=== PATIENT | female | born 1945 | race Caucasian/White ===

== ENCOUNTER 2019-05-26 12:00 | Outpatient (RCR) | payer MEDICARE, OTHER, SELFPAY | END 2019-06-01 23:59 | disposition home or self-care (01) | LOC: CHSSENLIFE 12:00 | PROVIDERS: PCP Family Medicine; Visit Provider Psychiatry & Neurology Psychiatry | DX: F41.9 Anxiety disorder, unspecified (principal); F33.1 Major depressive disorder, recurrent, moderate; F60.9 Personality disorder, unspecified | CPT/HCPCS: 90792; 90853; 99213; 99214; G0463 ==

== ENCOUNTER 2019-06-01 11:02 | Outpatient (RCR) | payer MEDICARE, OTHER, SELFPAY | END 2019-06-16 15:29 | disposition home or self-care (01) | LOC: CHSSENLIFE 11:02 | PROVIDERS: PCP Internal Medicine; Visit Provider Psychiatry & Neurology Psychiatry | DX: F41.9 Anxiety disorder, unspecified (principal); F33.1 Major depressive disorder, recurrent, moderate; F60.9 Personality disorder, unspecified | CPT/HCPCS: 90853; 99213; G0463 ==

== ENCOUNTER 2020-06-20 07:12 | Outpatient (CLI) | payer MEDICARE, OTHER, SELFPAY ==
--- NOTE | ~2020-06-20 | XR_ITS ---
EXAMINATION: XR chest 2V DATE: 06/20/2020 07:39 INDICATION: Cough. TECHNIQUE: Frontal and lateral views of the chest were obtained. COMPARISON: Chest 2 views 10/19/2017 FINDINGS: There is mild atelectasis at left lung base. No pleural effusion or pneumothorax. The heart size is normal. There are surgical clips in the abdomen. IMPRESSION: 1. Mild atelectasis at left lung base. Reviewed, dictated and finalized at location A. E OPERATOR
== END 2020-06-20 07:13 | disposition home or self-care (01) ==
LOC: CHSIMG 07:16
PROVIDERS: PCP Family Medicine; Visit Provider Family Medicine
DX: R05 Cough (principal)
CPT/HCPCS: 71046

== ENCOUNTER 2020-08-23 16:07 | Outpatient (CLI) | payer MEDICARE, OTHER, SELFPAY ==
--- NOTE | ~2020-08-23 | XR_ITS ---
EXAMINATION: XR chest 2V DATE: 08/23/2020 17:07 INDICATION: Acute bronchitis. Shortness of breath. TECHNIQUE: Frontal and lateral views of the chest were obtained. COMPARISON: Chest 2 views 06/20/2020 FINDINGS: There is mild atelectasis in left lower lung zone. No pleural effusion or pneumothorax. The heart size is normal. IMPRESSION: 1. Mild atelectasis in left lower lung zone. Reviewed, dictated and finalized at location A.
== END 2020-08-23 16:08 | disposition home or self-care (01) ==
LOC: CHSIMG 16:08
PROVIDERS: PCP Family Medicine; Visit Provider Physician Assistant
DX: J44.0 Chronic obstructive pulmonary disease with (acute) lower respiratory infection (principal); J20.9 Acute bronchitis, unspecified; J98.11 Atelectasis
CPT/HCPCS: 71046

== ENCOUNTER 2020-09-24 08:32 | Outpatient (CLI) | payer MEDICARE, OTHER, SELFPAY ==
--- NOTE | ~2020-09-24 | XR_ITS ---
EXAMINATION: XR chest 2V 09/24/2020 08:59 INDICATION: Acute bronchitis. Emphysema. PROCEDURE: PA and lateral views of the chest COMPARISON: Comparison to multiple prior studies sequentially, with oldest reviewed study dated 06/2017. FINDINGS: The lungs are clear. The lungs are hyperinflated which is consistent with, but not diagnost ic of chronic obstructive pulmonary disease. The cardiomediastinal silhouette is within normal limits . There are no pleural effusions. There is no pneumothorax suspected. IMPRESSION: 1: NO ACUTE CARDIOPULMONARY DISEASE. Reviewed, dictated and finalized at location B.
== END 2020-09-24 08:33 | disposition home or self-care (01) ==
LOC: CHSLAB 08:34
PROVIDERS: PCP Family Medicine; Visit Provider Physician Assistant
DX: J44.0 Chronic obstructive pulmonary disease with (acute) lower respiratory infection (principal)
CPT/HCPCS: 71046

== ENCOUNTER 2020-09-28 14:56 | Emergency (ER) | payer MEDICARE, OTHER, SELFPAY ==
--- NOTE | ~2020-09-28 | XR_ITS ---
EXAMINATION: XR abdomen NG/feed tube insert DATE: 09/28/2020 20:36 INDICATION: Nasogastric tube placement. TECHNIQUE: A supine view of the abdomen and lower chest was obtained for evaluation of feeding tube placement. COMPARISON: CT dated 09/28/2020 FINDINGS: Nasogastric tube tip near the gastric pylorus, possibly in the proximal duodenum and with the proxima l side port at the gastric antrum. Mildly dilated gas-filled loops of bowel in the upper abdomen cons istent with small bowel obstruction. Postoperative changes in the upper abdomen with suture line meliton g the proximal stomach. Mild streaky atelectasis at the left lung base. Heart size is normal. IMPRESSION: 1. Distal tip of the nasogastric tube tip near the gastric pylorus, possibly in the proximal duodenum . Consider withdrawal by 10 cm. Reviewed, dictated and finalized at location A. IMPRESSION: 1. Distal tip of the nasogastric tube tip near the gastric pylorus, possibly in the proximal duodenum. Consider withdrawal by 10 cm.
--- NOTE | ~2020-09-28 | CT_ITS ---
EXAMINATION: CT abdomen pelvis w con DATE: 09/28/2020 17:17 INDICATION: Left abdominal pain. TECHNIQUE: Computed tomography (CT) of the abdomen and pelvis was performed with 100 mL Omnipaque 350 intravenous contrast. Automated exposure control and iterative reconstruction technique were employe d. The dose-length product was 735.01 mGy-cm. COMPARISON: pelvis CT 08/09/18 FINDINGS: The visualized portions of the lung bases demonstrate mild atelectasis. No pleural effusion . The heart size is normal. No pericardial effusion. There is a small sliding hiatal hernia. There ar e surgical changes in the stomach. There is mild intrahepatic and extrahepatic biliary duct dilatatio n, likely secondary to cholecystectomy. The spleen, pancreas, and adrenal glands are normal. There is a 2.8 cm hemorrhagic cyst of right kidney. There are cysts in the kidneys measuring up to 5 mm on th e left. There is diverticulosis of the colon without evidence of diverticulitis. There is a ventral h ernia containing a wall of nonobstructed transverse colon. The appendix is not visualized. There is a ventral hernia containing a dilated segment of small bowel with transitions points entering and exit ing the hernia. Small bowel is dilated proximal to the hernia and decompressed distal to the hernia. There is predominantly chronic fat stranding in the hernia and in the surrounding subcutaneous fat, c onsistent with inflammation and scarring. There are fibroids in the uterus. There are no pathological ly enlarged lymph nodes. There is no free intraperitoneal fluid. There is severe lumbar spondylosis. IMPRESSION: 1. Closed loop small bowel obstruction within a ventral hernia. 2. Ventral hernia containing a wall of nonobstructed transverse colon. Reviewed, dictated and finalized at location A.
[2020-09-28 15:06] VITALS: BP 161/93; PULSE 67; RESP 20; TEMP 36.1; O2SAT 96
--- NOTE | 2020-09-28 15:09 | ED.ABDPAIN ---
HPI - Abdominal Pain General Chief Complaint: Abdominal Pain Stated Complaint: AMB Time Seen by Provider: 09/28/20 15:05 Source: patient and EMS Mode of arrival: ambulatory Limitations: no limitations History of Present Illness HPI narrative: patient comes in with recurrent nausea and emesis. She has had moderately severe abdominal pain, for about 2 hours prior to presentation. This has been associated with nausea and emesis at home. She comes in because of abdominal pain which is ongoing, and because of nausea. MD elicited complaint: abdominal pain Pertinent past history: other (multiple abdominal surgeries) Onset (ago): hour(s) Pain Consistency: constant Location: epigastric Severity: severe Quality: cramping, stabbing and sharp Exacerbating factors: nothing Relieving factors: nothing Associated symptoms: nausea and vomiting Related Data Home Medications Medication Instructions Recorded Confirmed metformin 1,000 mg PO DAILY 03/15/19 09/28/20 metformin 500 mg PO DAILY 03/15/19 09/28/20 buspirone 7.5 mg PO BID 09/28/20 09/28/20 duloxetine 60 mg PO DAILY 09/28/20 09/28/20 lovastatin 20 mg PO DAILY 09/28/20 09/28/20 omeprazole 20 mg PO BID 09/28/20 09/28/20 sitagliptin 100 mg PO DAILY 09/28/20 09/28/20 Allergies Allergy/AdvReac Type Severity Reaction Status Date / Time No Known Allergies Allergy Unknown Verified 09/04/15 15:44 Review of Systems Constitutional: Constitutional: Reports no additional constitutional complaints Eyes: Eyes: Reports no additional eye complaints ENT: Reports system reviewed and no additional complaints, except as documented Cardiovascular: Cardiovascular: Reports no additional cardiovascular complaints Respiratory: Respiratory: Reports no additional respiratory complaints Gastrointestinal: Gastrointestinal: Reports no additional gastrointestinal complaints Genitourinary: Genitourinary: Reports no additional female genitourinary complaints Musculoskeletal: Musculoskeletal: Reports no additional musculoskeletal complaints Integumentary/Breasts: Skin/Breast: Reports system reviewed and no additional complaints, except as docu Neurologic: Reports system reviewed and no additional complaints, except as documented Psychiatric: Psychiatric: Reports no additional psychiatric complaints Endocrine: Endocrine: Reports no additional endocrine complaints Hematologic/Lymphatic: Hematologic/Lymphatic: Reports no additional hematologic/lymphatic complaints Allergic/Immunologic: Allergic/Immunologic: Reports no additional allergic/immunologic complaints [facility] Past Medical History Medical History (Updated 09/28/20 @ 18:38 by Umang Dyson MD) Body mass index [BMI] 35.0-35.9, adult (09/27/15) Complications of gastric bypass surgery Left knee pain Primary osteoarthritis of both knees Surgical History Surgical History (Updated 09/28/20 @ 15:52 by Umang Dyson MD) Gastric bypass status for obesity History of appendectomy History of cholecystectomy Hx of tonsillectomy Presence of right artificial knee joint Family History Family History Other Family history of arthritis Family history of malignant neoplasm Hypertension Social History Social History Smoking status: Never smoker Alcohol intake: never Exam Const: General: alert Orientation/consciousness: patient oriented x3 HENMT: Head: normal to inspection Ears: external ears normal and TM's normal bilaterally General nose exam: Normal external nose present Mouth: Yes Normal oral and palatal mucosa present Throat: posterior oropharynx normal Eyes: Conjunctivae: conjunctivae normal Neck: Neck: normal visual inspection Chest: Chest palpation & inspection: normal inspection of the chest Resp: Effort & Inspection: normal respiratory effort Auscultation: clear to auscultation bilaterally Cardio: Rate: regul
[2020-09-28] MEDS: DICYCLOMINE HCL INJ 20 MG/2 ML VIAL IM (15:16)
[2020-09-28] MEDS: ONDANSETRON INJ 4 MG/2 ML VIAL IV PUSH ×2 (15:16→18:44)
[2020-09-28 15:30] LABS: Basophils Absolute Auto 0.03 K/mm3 (0.00-0.10); Basophils Percent Auto 0.2 % (0.0-1.0); Eosinophils Absolute Auto 0.17 K/mm3 (0.02-0.50); Eosinophils Percent Auto 1.2 % (1.0-6.0); Hemoglobin 12.9 g/dL (11.7-13.8); Immature Granulocyte Absolute 0.09 K/mm3 (0.00-0.00); Immature Granulocyte Percent A 0.6 % (0.0-0.0); Lymphocytes Absolute Auto 2.46 K/mm3 (1.10-4.50); Lymphocytes Percent Auto 17.1 % (18.0-42.0); Mean Corpuscular HGB Conc 33.1 g/dL (32.0-36.0); Mean Corpuscular Volume 84.6 fL (78.0-102.0); Mean Platelet Volume 10.8 fl (9.2-11.8); Monocytes Absolute Auto 0.78 K/mm3 (0.10-0.90); Monocytes Percent Auto 5.4 % (2.0-11.0); Neutrophils Absolute Auto 10.9 K/mm3 (1.7-7.2); Neutrophils Percent Auto 75.5 % (50.0-70.0); Platelet Count Result 347 K/mm3 (150-420); Red Blood Count 4.61 M/mm3 (4.20-5.40); Red Cell Distribution Width 15.3 % (11.6-14.4); White Blood Count 14.4 K/mm3 (4.8-10.8)
--- NOTE | 2020-09-28 15:40 | PC.NURSE ---
this rn in to re-evaluate pt. pt sitting up on stretcher sticking finger down throat to make herself throw up. pt asked to please not do this. edp aware.
--- NOTE | 2020-09-28 15:41 | PC.NURSE ---
pt unable to provide urine sample at this time.
[2020-09-28 15:44] LABS: Alanine Aminotransferase 15 U/L (14-59); Alkaline Phosphatase 45 U/L (46-116); Anion Gap 15 mmol/L (8-16); Aspartate Amino Transferase 12 U/L (15-37); Bilirubin,Total 0.4 mg/dL (0.00-1.00); Blood Urea Nitrogen 14 mg/dL (7-18); Calcium 9.6 mg/dL (8.5-10.1); Carbon Dioxide 22 mmol/L (21-32); Chloride 98 mmol/L (98-108); Estimated CRCL calculation 43 ml/min; Estimated Glomerular Filt Rate 58; Glucose 212 mg/dL (70-99); Osmolality Calculated 286 mOsm/kg (285-295); Potassium 4.1 mmol/L (3.5-5.1); Sodium 135 mmol/L (136-145); Total Protein 7.2 g/dL (6.4-8.2)
[2020-09-28 15:45] LABS: Lipase 100 U/L (73-393)
[2020-09-28 15:47] LABS: Lactic Acid Reflex 1.1 mmol/L (0.4-2.0)
[2020-09-28] MEDS: HYDROmorphone HCL INJ (*CRX) 2 MG/ML VIAL 0.5 MG IV PUSH ×2 (16:00→18:44)
--- NOTE | 2020-09-28 16:25 | PC.NURSE ---
PT RESTING ON STRETCHER, PT CONTINUES TO C/O PAIN. PT SPO2 DECREASES TO 85% ON RA WHEN FALLING ASLEEP. PT PLACED ON 2 LITERS O2/NC.
[2020-09-28 16:32] VITALS: BP 168/83; PULSE 71; RESP 18; O2SAT 99
--- NOTE | 2020-09-28 17:03 | PC.NURSE ---
PT TO CT VIA WHEELCHAIR.
[2020-09-28 17:33] VITALS: PULSE 80; RESP 20; O2SAT 99
[2020-09-28 18:17] VITALS: BP 169/80; PULSE 78; RESP 18; O2SAT 96
--- NOTE | 2020-09-28 18:17 | PC.NURSE ---
Addendum entered by Meghan Monte RN 09/28/20 18:18[facility] per pt request. Original Note: alecia marroquin
--- NOTE | 2020-09-28 18:30 | PC.NURSE ---
PT AMBULATORY TO BATHROOM.
[2020-09-28 18:49] LABS: Acetone Small (Negative)
[2020-09-28 18:52] LABS: Appearance Urine Clear (Clear); Bilirubin Urine Negative (Negative); Glucose Urine UA Negative (Negative); Ketones Urine 1+ (Negative); Leukocyte Esterase Ur Trace LEU/UL (Negative); Nitrate Urine Negative (Negative); Protein Urine Negative (Negative); Specific Grav Ur 1.015 (1.010-1.020); Urobilinogen Urine 0.2 mg/dL (0.2-1.0)
--- NOTE | 2020-09-28 18:57 | PC.NURSE ---
PTS ROOMATE UPDATED PER PT REQUEST. PT ROOMATE SUSANNAH PHONE NUMBER [phone]
[2020-09-28 18:59] LABS: Add Urine Microscopic? YES; Blood Urine Trace-lysed (Negative); Color Urine Light Yellow (Yellow)
[2020-09-28 19:00] LABS: Bacteria Urine Trace /hpf; RBC Urine None seen /hpf (0-2); Squamous Epithelial Cell Urine Few /hpf (Few)
--- NOTE | 2020-09-28 19:02 | PC.NURSE ---
REPORT TO CARLA.
[2020-09-28] MEDS: metroNIDAZOLE 500 MG/ISO 100ML 500 MG/100 ML BAG 100 MG IVPB (19:18)
[2020-09-28] MEDS: SODIUM CHLORIDE 0.9% IV 1,000 ML 500 ML IV CONT (19:18)
[2020-09-28 19:46] VITALS: BP 183/81; PULSE 78; RESP 16; O2SAT 100
[2020-09-28] MEDS: SODIUM CHLORIDE 0.9% IV 1,000 ML 200 ML IV CONT (19:48)
--- NOTE | 2020-09-28 20:02 | PC.NURSE ---
Patient has been accepted to [facility], on-call surgeon requests NG tube placement. Attempted x 2 with ERP at bedside without success. Will attempt again if patient is willing. Arranging ambulance transport. Patient reports abdominal pain 5/10, she has had no active vomiting and denied current nausea.
[2020-09-28 20:27] VITALS: BP 156/74; PULSE 80; RESP 16; O2SAT 94
--- NOTE | 2020-09-28 20:34 | PC.NURSE ---
NG tube placed, KUB obtained. Jose Francisco called and report given to Suman MONZON, patient going to room 347. [facility] requested for transfer.
--- NOTE | 2020-09-28 21:20 | PC.NURSE ---
[facility] arrived to transport patient to [facility].
== END 2020-09-28 21:25 | disposition short-term general hospital (02) ==
PROVIDERS: Emergency Provider Emergency Medicine; PCP Family Medicine
DX: K56.699 Other intestinal obstruction unspecified as to partial versus complete obstruction (principal)
CPT/HCPCS: 36415; 74177; 80053; 81001; 82010; 83605; 83690; 85025; 87040; 96361; 96365; 96367; 96372; 96375; 96376; 99285; J0500; J1170; J2405; J2543; J7030; Q9967

== ENCOUNTER 2020-09-28 22:53 | Inpatient (IN) | payer MEDICARE, OTHER, SELFPAY ==
--- NOTE | ~2020-09-28 | XR_ITS ---
EXAMINATION: XR abdomen NG/feed tube rechec DATE: 09/28/2020 22:18 INDICATION: Confirmation of gastric position of the nasogastric tube. TECHNIQUE: A supine view of the abdomen and lower chest was obtained for evaluation of feeding tube placement. COMPARISON: 09/28/2020 FINDINGS: The distal tip of the nasogastric tube has advanced and is now within the second portion of the duode num with the proximal side port near the level of the pylorus. The prior some redundancy amount of tu be within the more proximal stomach has decreased which likely accounts for the advancement of this t ube. Postoperative changes with multiple surgical clips and sutures along the stomach. Persistent mil dly dilated loops of gas-filled small bowel in the abdomen consistent with small bowel obstruction. V isualized portions of the lungs are clear. Heart size is normal. IMPRESSION: 1. Nasogastric tube tip is advanced, now in the second portion of the duodenum. Could consider withdr awal by 10-[address] the distal tip in the distal gastric body or maintaining the proximal side- port below the level of the gastroesophageal junction. The line 2. Small bowel obstruction. Reviewed, dictated and finalized at location A. IMPRESSION: 1. Nasogastric tube tip is advanced, now in the second portion of the duodenum. Could consider withdrawal by 10-[address] the distal tip in the distal ga stric body or maintaining the proximal side-port below the level of the gastroe sophageal junction. The line 2. Small bowel obstruction.
--- NOTE | ~2020-09-28 | XR_ITS ---
EXAMINATION: XR abdomen obstructive series EXAM DATE: 09/29/2020 09:07 INDICATION: F/U on SBO (please compare to CT of 09/18). Epigastric pain. TECHNIQUE: Frontal upright projection of the upper abdomen, frontal projection of the lower abdomen f or interpretation. Comparison is made to prior examination from 09/28/2020. Correlation was made with CT scan 09/28/2020. FINDINGS: Gastroesophageal surgical clips, with feeding tube coursing along the gastric body, pylorus , duodenal, tip along the 3rd portion duodenum, could be safely retracted 10 cm. Again there are mult iple loops of significantly dilated air-filled mid small bowel proximal to the left obstructing lower quadrant small bowel hernia (incarcerated?). Lung bases are clear. No evidence of free intraperitone al gas. IMPRESSION: 1. Feeding tube tip and side-port in the 3rd and 1st portion of duodenum respectively, could be safe ly retracted 10 cm. 2. Persistent small bowel obstruction. 3. No free intraperitoneal air. Reviewed, dictated and finalized at location A. IMPRESSION: 1. Feeding tube tip and side-port in the 3rd and 1st portion of duodenum respe ctively, could be safely retracted 10 cm. 2. Persistent small bowel obstruction. 3. No free intraperitoneal air.
[2020-09-28] MEDS: SODIUM CHLORIDE 0.9% IV 1,000 ML 85 ML IV CONT (22:09)
--- NOTE | 2020-09-28 22:13 | ADMGEN ---
This patient, Gladis Nelson, was admitted to Medical Room 347-. Patient/family oriented to hospital policies and general routines including ID bracelet, bed and alarms, visiting hours, pain management, procedures, bathroom and other care routines, personal items, smoking policy, room service/diet, and visiting hours. Information on how to activate the Rapid Response Team has been discussed. Patient/Family are encouraged to report perceived risks to care and to ask questions if they do not understand what they are told or what they should do.
[2020-09-28 22:19] VITALS: BP 157/80; PULSE 74; RESP 18; TEMP 36.4; O2SAT 97; BMI 32.1
--- NOTE | 2020-09-28 23:26 | PM.IMHP ---
H&P: HPI History of Present Illness Date/Time: 09/28/20 23:26 Chief Complaint: Abdominal pain Narrative: This is a 74-year-old female with past medical history significant for type 2 diabetes mellitus, anxiety. Patient has been in her usual state of health up until yesterday at around 1:00 a.m. when she started having abdominal pain abdominal cramping some nausea but no vomiting patient has been unable to pass gas for several hours now. In the morning she was fine and she was able to eat her breakfast. She has not had any fevers rigors chills, no melena no hematemesis and no hematochezia. Abdominal pain is diffuse cramp like, she has not been able to eat anything. She comes as a direct admission from a [facility] emergency room. However general surgeon has been consulted patient arrived with NG in. At the time of my visit patient was experimented in excruciating pain in her abdomen. She denies any changes in her stool character or bowel habit recently. CT of abdomen and pelvis was significant for a closed loop of bowel within the hernia obstruction. Review of Systems Review of Systems: Narrative: Abdominal pain dry heaving unable to pass gas Constitutional: Constitutional: Denies chills, Denies fatigue, Denies fever(s), Denies malaise, Reports poor appetite and Denies weakness Eyes: Eyes: Denies change in vision ENT: Denies nasal congestion, Denies nasal discharge and Denies nasal obstruction Cardiovascular: Cardiovascular: Denies irregular heart rhythm, Denies radiating jaw, neck or arm pain, Denies palpitations and Denies dyspnea Respiratory: Respiratory: Denies cough, Denies dyspnea, Denies dyspnea on exertion and Denies wheezing Gastrointestinal: Gastrointestinal: Reports abdominal pain, Denies melena, Denies change in stool character, Denies diarrhea, Reports nausea and Denies vomiting Comments: Unable to pass gas Genitourinary: Genitourinary: Denies dysuria Musculoskeletal: Musculoskeletal: Denies arthralgias, Denies joint swelling, Denies muscle cramps and Denies muscle weakness Integumentary/Breasts: Skin/Breast: Denies rash Neurologic: Denies focal weakness and Denies Sensory deficit (Neuro) Psychiatric: Psychiatric: Reports no additional psychiatric complaints Endocrine: Endocrine: Reports no additional endocrine complaints Hematologic/Lymphatic: Hematologic/Lymphatic: Reports no additional hematologic/lymphatic complaints Allergic/Immunologic: Allergic/Immunologic: Reports no additional allergic/immunologic complaints COUNTS INCLUDE 234 BEDS AT THE [facility] Past Medical History Medical History (Updated 09/29/20 @ 00:39 by Olya Saha MD) Body mass index [BMI] 35.0-35.9, adult (09/27/15) Complications of gastric bypass surgery Left knee pain Primary osteoarthritis of both knees Surgical History Surgical History (Updated 09/28/20 @ 15:52 by Umang Dyson MD) Gastric bypass status for obesity History of appendectomy History of cholecystectomy Hx of tonsillectomy Presence of right artificial knee joint Family History Family History Other Family history of arthritis Family history of malignant neoplasm Hypertension Social History Social History Smoking status: Never smoker Alcohol intake: never Substance use: never Substance use type: does not use Spiritual care concerns: No Meds Home Medications and Allergies Home Medications Medication Instructions Recorded Confirmed Type metformin 1,000 mg PO DAILY 03/15/19 09/28/20 History metformin 500 mg PO DAILY 03/15/19 09/28/20 History buspirone 7.5 mg PO BID 09/28/20 09/28/20 History duloxetine 60 mg PO DAILY 09/28/20 09/28/20 History lovastatin 20 mg PO DAILY 09/28/20 09/28/20 History omeprazole 20 mg PO BID 09/28/20 09/28/20 History sitagliptin 100 mg PO DAILY 09/28/20 09/28/20 History Allergies Allergy/AdvReac Type Severity Reaction Status D
[2020-09-28] MEDS: ONDANSETRON INJ 4 MG/2 ML VIAL IV PUSH (23:40)
[2020-09-28] MEDS: MORPHINE SULFATE (*CRX) 2 MG/ML INJ IV PUSH (23:41)
[2020-09-28 23:49] LABS: Magnesium 1.3 mg/dL (1.6-2.3); Phosphorus 3.7 mg/dL (2.5-4.5)
[2020-09-29] VITALS (12 sets, daily range): BP systolic 118–156; BP diastolic 60–82; PULSE 76–93; RESP 16–23; TEMP 36.2–37.2; O2SAT 92–100
[2020-09-29] MEDS: ONDANSETRON INJ 4 MG/2 ML VIAL IV PUSH ×2 (04:12→09:54)
[2020-09-29] MEDS: MORPHINE SULFATE (*CRX) 2 MG/ML INJ IV PUSH ×2 (04:12→08:45)
[2020-09-29 06:03] LABS: Basophils Percent Auto 0.2 % (0.2-1.2); Hematocrit 38.9 % (37.0-47.0); Hemoglobin 12.9 g/dL (12.0-15.0); Immature Granulocyte Absolute 0.14 K/mm3 (0.00-0.031); Immature Granulocyte Percent A 0.9 % (0-0.5); Lymphocytes Absolute Auto 1.33 K/mm3 (0.9-3.2); Lymphocytes Percent Auto 8.3 % (18.3-44.2); Mean Corpuscular HGB Conc 33.2 g/dl (32-36); Mean Corpuscular Hemoglobin 27.9 pg (26-34); Mean Platelet Volume 10.3 fl (7.4-10.4); Monocytes Absolute Auto 0.6 K/mm3 (0.1-0.6); Monocytes Percent Auto 3.8 % (2.6-8.5); Neutrophils Percent Auto 86.8 % (45.5-73.1); Platelet Count Result 332 k/mm3 (150-375); Red Blood Count 4.63 M/mm3 (4.2-5.4); Red Cell Distribution Width 15.2 % (11.5-14.5); White Blood Count 16.1 K/mm3 (4.5-10.0)
[2020-09-29 06:15] LABS: Anion Gap 9 mmol/L (8-16); Blood Urea Nitrogen 7 mg/dL (7-17); Calcium 8.9 mg/dL (8.4-10.2); Carbon Dioxide 22 mmol/L (22-30); Chloride 102 mmol/L (98-107); Estimated CRCL calculation 67 ml/min; Estimated Glomerular Filt Rate > 60; Glucose 178 mg/dL (65-105); Potassium 3.8 mmol/L (3.4-5.0); Sodium 133 mmol/L (137-145)
[2020-09-29 06:32] LABS: Lactic Acid Reflex 0.9 mmol/L (0.7-2.1)
[2020-09-29] MEDS: SODIUM CHLORIDE 0.9% IV 1,000 ML 85 ML IV CONT (06:53)
[2020-09-29 07:55] LABS: Glucose Point of Care 174 mg/dl (65-105)
[2020-09-29] MEDS: MAGNESIUM SULF 4 GM/WATER100ML 4 GM/100 ML BAG IVPB (08:45)
--- NOTE | 2020-09-29 09:03 | PM.CNGS ---
Assessment and Plan Assessment and plan (1) Ventral incisional hernia with obstruction: Onset Date: ~09/28/20 Code(s): K43.0 - Incisional hernia with obstruction, without gangrene Status: Acute Assessment and Plan: This is the main reason for the patient's transfer from [place]. This hernia is irreducible at the moment. I will review the CT with the radiologist and perhaps try one more time to reduce it. In the meantime I will talk with the sales representative supervisor about setting her up for surgery this afternoon since the other alternative is proceeding to surgery and surgical reduction and repair of the hernia. This should release the small-bowel obstruction also. The risks, benefits,and possible complications including bleeding infection possible injury to the small bowel possible need for small bowel resection were discussed with the patient she seems understand wished to proceed. (2) Small bowel obstruction: Onset Date: ~09/28/20 Code(s): K56.609 - Unspecified intestinal obstruction, unspecified as to partial versus complete obstruction Status: Acute Assessment and Plan: See above under ventral incisional hernia with obstruction. patient has NG tube in place and this will remain until we are able to resolve this problem. (3) Abdominal pain: Onset Date: ~09/28/20 Code(s): R10.9 - Unspecified abdominal pain Status: Acute Assessment and Plan: Abdominal pain seems to be emanating from problem 1 and 2 above. (4) Type 2 diabetes mellitus: Onset Date: Unknown Code(s): E11.9 - Type 2 diabetes mellitus without complications Status: Acute Assessment and Plan: Known problem. On metformin at home which will be continued.. Will depend on the hospitalist to follow this during her perioperative period. (5) History of depression: Code(s): Z86.59 - Personal history of other mental and behavioral disorders Status: Acute Assessment and Plan: Will continue current medications once she is able to take p.o.. Will depend on the hospitalist to order something to substitute for this IV in the interim. (6) Obesity, Class I, BMI 30-34.9: Code(s): E66.9 - Obesity, unspecified Status: Acute Assessment and Plan: Patient has actually been losing weight by controlling her diet. I am happy with this and will let her continue doing this perhaps just add some more activity with walking if possible. History of Present Illness Consult details Consult date: 09/29/20 Reason for consult: abdominal pain ( Mainly in the periumbilical area near her hernia.) Requesting physician: Olya Saha MD Narrative: This is a 74-year-old White female with past medical history significant for type 2 diabetes mellitus, anxiety, Obesity, and multiple previous abdominal surgeries. Patient had been in her usual state of health up until yesterday at around 1:00 a.m. At that time she started having abdominal pain which she describes as an abdominal cramping associated some nausea, but no vomiting. The patient has been unable to pass gas since arriving in the ED at [place]. In the morning yesterday she was fine and she was able to eat her breakfast and had a fairly normal BM for her. She has not had any fevers rigors, chills, no melena, no hematemesis, and no hematochezia. The abdominal pain is diffuse crampy like, and since noon yesterday she has not been able to eat anything. She comes to [place] as a direct admission from a [facility] emergency room. The patient arrived with NG in place . She denies any changes in her stool character or bowel habit recently other than some constipation earlier last week. CT of abdomen and pelvis that was done in [place] was significant for a closed loop of bowel obsruction within the noted ventral hernia. Her lactic acid both in [place] last night and early this morning ( 09/29/2020 ) was in th
--- NOTE | 2020-09-29 10:40 | WPDHPUPDATE1 ---
History and Physical Update Update Date/Time: 09/29/20 10:40 History and Physical has been reviewed, including an updated exam of the patient. There are changes in the patient's condition. This morning the patient had a low magnesium level. She has received 1 rider of magnesium sulfate. Also I of twice try to reduce her hernia but this was unsuccessful there poor patient needs to proceed to surgery for surgical reduction. Risks, benefits, and alternatives have been discussed and questions answered. Patient agrees to proceed with procedure.
--- NOTE | 2020-09-29 10:51 | WPDANESEPP ---
Anes - Eval Pre Procedure Date/Time: 09/29/20 10:51 Pre Op Diagnosis: Small Bowel Obstruction Patient Data Age: 74 Gender: F Height: 5 ft 1 in Weight: 77.3 kg Last Vital Signs Temp 36.4 C 09/29/20 05:19 Pulse 93 09/29/20 05:19 Resp 18 09/29/20 05:19 BP 156/82 H 09/29/20 05:19 Pulse Ox 96 09/29/20 05:19 Allergies Allergy/AdvReac Type Severity Reaction Status Date / Time No Known Allergies Allergy Unknown Verified 09/04/15 15:44 Home Medications Medication Instructions Recorded Confirmed Type metformin 1,000 mg PO DAILY 03/15/19 09/28/20 History metformin 500 mg PO DAILY 03/15/19 09/28/20 History buspirone 7.5 mg PO BID 09/28/20 09/28/20 History duloxetine 60 mg PO DAILY 09/28/20 09/28/20 History lovastatin 20 mg PO DAILY 09/28/20 09/28/20 History omeprazole 20 mg PO BID 09/28/20 09/28/20 History sitagliptin 100 mg PO DAILY 09/28/20 09/28/20 History Laboratory Tests 09/28/20 09/29/20 09/29/20 23:21 05:58 05:58 WBC 16.1 K/mm3 H K/mm3 (4.5-10.0) RBC 4.63 M/mm3 M/mm3 (4.2-5.4) Hgb 12.9 g/dL g/dL (12.0-15.0) Hct 38.9 % % (37.0-47.0) MCV 84.0 fl fl (80-100) MCH 27.9 pg pg (26-34) MCHC 33.2 g/dl g/dl (32-36) RDW 15.2 % H % (11.5-14.5) Plt Count 332 k/mm3 k/mm3 (150-375) MPV 10.3 fl fl (7.4-10.4) Immature Gran % (Auto) 0.9 % H % (0-0.5) Neut % (Auto) 86.8 % H % (45.5-73.1) Lymph % (Auto) 8.3 % L % (18.3-44.2) Davidson % (Auto) 3.8 % % (2.6-8.5) Eos % (Auto) 0.0 % % (0-4.4) Baso % (Auto) 0.2 % % (0.2-1.2) Lymph # (Auto) 1.33 K/mm3 K/mm3 (0.9-3.2) Davidson # (Auto) 0.6 K/mm3 K/mm3 (0.1-0.6) Eos # (Auto) 0.0 K/mm3 K/mm3 (0-0.3) Baso # (Auto) 0.0 K/mm3 K/mm3 (0.0-0.1) Abs Immat Gran (auto) 0.14 K/mm3 H K/mm3 (0.00-0.031) Absolute Neuts (auto) 14.0 K/mm3 H K/mm3 (1.3-6.7) Absolute Nucleated RBC 0.0 K/mm3 K/mm3 (0.0-0.012) Nucleated RBC % 0.0 % % (0.0-0.2) Sodium 133 mmol/L L mmol/L (137-145) Potassium 3.8 mmol/L mmol/L (3.4-5.0) Chloride 102 mmol/L mmol/L (98-107) Carbon Dioxide 22 mmol/L mmol/L (22-30) Anion Gap 9 mmol/L mmol/L (8-16) BUN 7 mg/dL mg/dL (7-17) Creatinine 0.60 mg/dL L mg/dL (0.7-1.0) Estim Creat Clear Calc 67 ml/min ml/min Estimated GFR > 60 (59 - ) Glucose 178 mg/dL H mg/dL (65-105) POC Capillary Glucose Lactic Acid Calcium 8.9 mg/dL mg/dL (8.4-10.2) Phosphorus 3.7 mg/dL mg/dL (2.5-4.5) Magnesium 1.3 mg/dL L mg/dL (1.6-2.3) 09/29/20 09/29/20 05:58 07:53 WBC RBC Hgb Hct MCV MCH MCHC RDW Plt Count MPV Immature Gran % (Auto) Neut % (Auto) Lymph % (Auto) Davidson % (Auto) Eos % (Auto) Baso % (Auto) Lymph # (Auto) Davidson # (Auto) Eos # (Auto) Baso # (Auto) Abs Immat Gran (auto) Absolute Neuts (auto) Absolute Nucleated RBC Nucleated RBC % Sodium Potassium Chloride Carbon Dioxide Anion Gap BUN Creatinine Estim Creat Clear Calc Estimated GFR Glucose POC Capillary Glucose 174 mg/dl H mg/dl (65-105) Lactic Acid 0.9 mmol/L mmol/L (0.7-2.1) Calcium Phosphorus Magnesium Patient hx anesthesia problems: none Family hx anesthesia problems: none [facility] Past Medical History Medical History (Updated 09/29/20 @ 09:19 by Shaw Bush MD) Body mass index [BMI] 35.0-35.9, adult (
--- NOTE | 2020-09-29 11:09 | PM.IMPN ---
Progress Note: A&P Assessment and Plan (1) Ventral incisional hernia with obstruction: Onset Date: ~09/28/20 Code(s): K43.0 - Incisional hernia with obstruction, without gangrene Status: Acute Assessment and Plan: Ventral hernia containing wall of nonobstructed transverse colon evident on CT scan. Hernia unable to be manually reduced Appreciate general surgery consultation Planning for surgical reduction and repair this afternoon (2) Small bowel obstruction: Onset Date: ~09/28/20 Code(s): K56.609 - Unspecified intestinal obstruction, unspecified as to partial versus complete obstruction Status: Acute Assessment and Plan: CT showed closed-loop small-bowel obstruction within ventral hernia. NG tube decompression initiated. Abdominal x-ray today showed persistent SBO without evidence of free intraperitoneal air Continue NPO diet with NG decompression Continue gentle IV fluids Appreciate general surgery consultation. Plan for surgical repair of hernia today which should resolve obstruction Analgesics and antiemetics available as needed (3) Type 2 diabetes mellitus: Onset Date: Unknown Code(s): E11.9 - Type 2 diabetes mellitus without complications Status: Acute Assessment and Plan: Last A1c unknown. Fasting blood sugar this morning was 174. Initiate Accu-Cheks, sliding scale insulin, and hypoglycemic protocol Holding metformin and sitagliptin (4) Hypomagnesemia: Code(s): E83.42 - Hypomagnesemia Status: Acute Assessment and Plan: Magnesium was 1.3 at presentation. She received 4 g IV magnesium sulfate this morning Monitor magnesium and other electrolytes (5) Anxiety: Code(s): F41.9 - Anxiety disorder, unspecified Status: Acute Assessment and Plan: Chronic issue acutely worsened due to hospitalization and surgery Resume Buspar when diet is advanced IV Ativan q6h as needed while NPO Subjective Date/time seen: 09/29/20 11:09 Interval history: Date of service: 09/29/2020 Gladis Nelson is a 74-year-old female with a history of type 2 diabetes mellitus, gastric bypass surgery with later reversal, and anxiety who is seen in follow-up for small bowel obstruction. She is doing better today following NG decompression. She denies abdominal pain at this time. No cramping or bloating. She felt nauseous this morning but at this time is comfortable without nausea or vomiting. Her throat is sore from prior NG tube. No bowel movement or flatus. This morning she was endorsing shortness of breath, which occurred mostly with coughing. She says that she has been fighting an episode of bronchitis for several weeks now, but overall this is improving. She denies chest pain or palpitations. She feels quite anxious especially regarding her upcoming surgery. She denies urinary symptoms. She has been able to ambulate independently. No dizziness, lightheadedness, or weakness. No fevers or chills. Denies leg pain or swelling. Review of Systems Review of Systems: All systems reviewed & are unremarkable except as noted in HPI and below Exam Narrative: Exam Narrative: Ms. Abarca is a well-nourished, well-appearing 74-year-old female who is sitting up in bed. She appears comfortable and is in NARD. Neuro: awake, alert and oriented x4, speech clear, no focal neuro deficits noted, mildly tremulous HEENMT: normocephalic, atraumatic, EOMI, sclerae anicteric, moist oral mucosa, tongue midline, nares patent, NG tube secured to nare Neck: supple, no lymphadenopathy Respiratory: scattered rhonchi which clear with cough, nonlabored breathing Cardio: regular rate, regular rhythm with S1-S2 Abdomen: distended, normoactive bowel sounds, firm palpable mass in periumbilical region that is mildly tender to palpation, no rigidity or guarding, dark output from NG Extremities: trace pedal edema, no erythema, cy
[2020-09-29] MEDS: ceFAZolin 2 GM/D5W 50 ML 2 GM/50 ML BAG IVPB (12:10)
--- NOTE | 2020-09-29 12:21 | WPDANESEFPP ---
Anes - Eval Final PreProcedure Day of Procedure 09/29/20 12:21 Patient weight: obese Heart: regular rate and rhythm Lungs: clear to auscultation Airway: Mallampati scale class II Neurological: alert and oriented Last oral intake: >/= 8 hours ASA classification: III Emergent: yes Anesthetic plan: proceed Anesthesia type and monitoring: general ETT and standard monitoring Informed Consent: The patient's anesthetic plan and its attendant risks and benefits were discussed with the patient by FIELD APPLICATIONS SPECIALIST and reviewed by me at 11am. Questions were solicited and answers provided to the satisfaction of the patient.I was present in OR at induction for this emergency.
[2020-09-29] MEDS: LACTATED RINGERS 1,000 ML 30 ML IV CONT ×2 (12:30→15:03)
--- NOTE | 2020-09-29 15:34 | W.PM.PROC2 ---
Procedure Note - Detailed Date of Procedure 09/29/20 Pre-op Diagnosis 1. Incarcerated ventral incisional hernia near umbilicus 2. Small Bowel Obstruction Post-op Diagnosis same (3. Incarcerated strangulated loop of bowel and ventral incisional hernia near umbilicus.) Procedure Performed 1. Exploratory laparotomy 2. Reduction of incarcerated, strangulated, ventral incisional hernia with small bowel resection (segmental) 3. Repair of incarcerated ventral incisional hernia with sutures. Surgeon Shaw Bush MD Operating Table Assembler Jonathan MONZON. OR first grade teacher. Anesthesia general Indications Patient presented with a incarcerated ventral incisional hernia with signs of possible closed-loop bowel obstruction within the hernia. She was not having a lot of vomiting or nausea but on CT 1 could see a loop of bowel going into the hernia and everything proximal to that seem to be dilated where as distal to the bowel coming out of the hernia everything was decompressed. Patient had an NG placed last night and was admitted to the hospital. She was checked by the hospitalist and approved for general anesthesia. This morning I try to reduce her hernia with compression and was unable to do this. Therefore, we set her up for surgical intervention to check the hernia be sure that was not bowel within it and then proceed appropriately. Findings There was a large ball of omentum within a approximately 6 x 6 cm ventral incisional hernia sac. Along with this was a knuckle of small bowel which had turned purplish black. Patient had a honeycomb of approximately 2-3 small ventral incisional hernias just off the midline to the left and slightly above the umbilicus. One of these was the offending hernia leading to the incarceration and strangulation. Description of Procedure Patient was brought to the operating room with an NG tube already in place. After induction of adequate general tracheal anesthesia by [facility] anesthesia department a Bravo catheter was placed. Following this the abdomen was prepped and draped in usual sterile fashion. Patient had SCD hose on prior to induction of anesthesia. Following this time-out was performed with the aid OR team confirming patient and site of planned surgery to be the abdomen. Following this I outlined a ventral incision directly over the scar from her previous vertical midline scar surgery slightly medial to the site of the palpable hernia mass which was slightly above into the left of the umbilicus. The old scar ended just above her umbilicus I made my incision to come around the umbilicus to just below it on the left side. Local anesthetic was infiltrated into the skin subcu tissues. Following this a 10 blade knife was used to make incision was carried down through subcutaneous tissues exposing what appeared to be a fat around the hernia sac. We then dissected completely around the hernia sac starting medially and working our way all around it. One old Prolene suture was identified cut and removed during this part of the procedure. Once this was completed the very thinned out hernia sac which was purplish in color and on its medial side I was able to make a small incision into the fascia and then get a hemostat positioned such that I could incise the fascia and we then enlarged the fascial opening through which the incarcerated hernia was extending. I carefully worked circumferentially around the heria sac and freed up the hernia sac Then we could peel the hernia sac off of the large 4 x 6 mass of omentum that was up in the hernia. This was resected by carefully placing hemostats in about 4 places on the neck of the hernia where the omentum was coming through the hernia defect. Each of these were cut, tied with 2-0 Vicryl sutures and then allowed to slip back into the abdomen. The resected portion of the incarcerated omentum was passed off the field and subsequently sent for specimen. Some of the subcutaneous fat associated with the ophelia
--- NOTE | 2020-09-29 15:36 | PC.NURSE ---
Dr Richard notified of Munira An requesting GI be re-consulted for GI follow for anemia with new blood in stool.
--- NOTE | 2020-09-29 15:39 | SUR.PHASEI ---
O2 removed at 1538.
[2020-09-29 15:55] LABS: Glucose Point of Care 210 mg/dl (65-105)
[2020-09-29 17:15] LABS: Glucose Point of Care 220 mg/dl (65-105)
[2020-09-29 20:49] LABS: Glucose Point of Care 194 mg/dl (65-105)
[2020-09-30 00:13] VITALS: BP 130/69; PULSE 92; RESP 16; TEMP 36.3; O2SAT 95
[2020-09-30] MEDS: SODIUM CHLORIDE 0.9% IV 1,000 ML 85 ML IV CONT ×2 (02:32→13:18)
[2020-09-30 04:26] VITALS: BP 146/73; PULSE 92; RESP 16; TEMP 36.6; O2SAT 94
[2020-09-30 05:58] LABS: Hematocrit 36.4 % (37.0-47.0); Hemoglobin 11.7 g/dL (12.0-15.0); Mean Corpuscular HGB Conc 32.1 g/dl (32-36); Mean Corpuscular Hemoglobin 27.7 pg (26-34); Mean Corpuscular Volume 86.3 fl (80-100); Mean Platelet Volume 11.6 fl (7.4-10.4); Platelet Count Result 271 k/mm3 (150-375); Red Blood Count 4.22 M/mm3 (4.2-5.4); Red Cell Distribution Width 15.7 % (11.5-14.5); White Blood Count 16.9 K/mm3 (4.5-10.0)
[2020-09-30 06:16] LABS: Hemoglobin A1C 6.5 % (<5.7)
[2020-09-30 06:20] LABS: Anion Gap 4 mmol/L (8-16); Blood Urea Nitrogen 7 mg/dL (7-17); Calcium 8.3 mg/dL (8.4-10.2); Carbon Dioxide 25 mmol/L (22-30); Chloride 103 mmol/L (98-107); Estimated CRCL calculation 79 ml/min; Estimated Glomerular Filt Rate > 60; Glucose 152 mg/dL (65-105); Potassium 3.8 mmol/L (3.4-5.0); Sodium 132 mmol/L (137-145)
[2020-09-30 07:44] LABS: Glucose Point of Care 154 mg/dl (65-105)
[2020-09-30] MEDS: ACETAMINOPHEN 500 MG TABLET PO ×2 (07:58→21:38)
[2020-09-30] MEDS: ENOXAPARIN 40 MG/0.4 ML SYRINGE SUB-Q (07:59)
[2020-09-30] MEDS: LORazepam INJ (*CRX) 2 MG/ML VIAL 0.5 MG IV PUSH (09:03)
[2020-09-30 10:15] VITALS: BP 144/85; PULSE 105; RESP 22; TEMP 35.7; O2SAT 99
[2020-09-30 11:20] LABS: Glucose Point of Care 157 mg/dl (65-105)
--- NOTE | 2020-09-30 11:25 | PM.IMPN ---
Progress Note: A&P Assessment and Plan (1) Ventral incisional hernia with obstruction: Onset Date: ~09/28/20 Code(s): K43.0 - Incisional hernia with obstruction, without gangrene Status: Acute Assessment and Plan: Ventral hernia containing wall of nonobstructed transverse colon evident on CT scan. Hernia unable to be manually reduced. She is now s/p hernia reduction with segmental small bowel resection by Dr. Bush on 09/29/20. Appreciate general surgery consultation Analgesics available as needed for pain Dressing care and further management per General surgery (2) Small bowel obstruction: Onset Date: ~09/28/20 Code(s): K56.609 - Unspecified intestinal obstruction, unspecified as to partial versus complete obstruction Status: Acute Assessment and Plan: CT showed closed-loop small-bowel obstruction within ventral hernia. NG tube decompression initiated. Abdominal x-ray 09/29 showed persistent SBO without evidence of free intraperitoneal air. She underwent hernia repair with small bowel resection as described above. Continue NPO diet with NG decompression. Advanced diet per General surgery recommendations Continue gentle IV fluids Appreciate general surgery consultation. Analgesics and antiemetics available as needed (3) Type 2 diabetes mellitus: Onset Date: Unknown Code(s): E11.9 - Type 2 diabetes mellitus without complications Status: Acute Assessment and Plan: A1c is 6.5. Blood sugars are fairly well controlled. Continue Accu-Cheks, sliding scale insulin, and hypoglycemic protocol Holding metformin and sitagliptin (4) Hypomagnesemia: Code(s): E83.42 - Hypomagnesemia Status: Acute Assessment and Plan: Magnesium was 1.3 at presentation and she received 4 g IV magnesium sulfate this morning. Magnesium 2.0 today Monitor magnesium and other electrolytes (5) Anxiety: Code(s): F41.9 - Anxiety disorder, unspecified Status: Acute Assessment and Plan: Chronic issue acutely worsened due to hospitalization Resume Buspar when diet is advanced IV Ativan q6h as needed while NPO Subjective Date/time seen: 09/30/20 11:25 Interval history: Date of service: 09/30/2020 Gladis Nelson is a 74-year-old female with a history of type 2 diabetes mellitus, gastric bypass surgery with later reversal, and anxiety who is seen in follow-up for small bowel obstruction. She is s/p hernia reduction on 09/29/20. She feels better today. She has no abdominal pain. She reports some abdominal soreness when getting out of bed. Denies nausea or vomiting. Still not passing flatus or stool. No fever or chills. No chest pain or palpitations. She is somewhat short of breath, but she thinks this is due to her anxiety and notes that she feels quite anxious still. No cough. No dizziness, lightheadedness, or weakness Review of Systems Review of Systems: All systems reviewed & are unremarkable except as noted in HPI and below Exam Narrative: Exam Narrative: Ms. Abarca is a well-nourished, well-appearing 74-year-old female who is sitting up in bed. She appears comfortable and is in NARD. Neuro: awake, alert and oriented x4, speech clear, no focal neuro deficits noted, mildly tremulous HEENMT: normocephalic, atraumatic, EOMI, sclerae anicteric, moist oral mucosa, tongue midline, nares patent, NG tube secured to nare Neck: supple, no lymphadenopathy Respiratory: Clear to auscultation bilaterally, nonlabored breathing Cardio: regular rate, regular rhythm with S1-S2 Abdomen: nondistended, normoactive bowel sounds, midline surgical incision covered with bandage that is c/d/i, drain with serosanguineous fluid output, nontender to palpation Extremities: no edema, erythema, cyanosis, clubbing, or tenderness to palpation, DP pulses 2+ bilaterally Skin: no rashes or lesions, warm and dry Psych: appropriate mood an
[2020-09-30 14:15] VITALS: BP 128/68; PULSE 102; RESP 20; TEMP 37.4; O2SAT 100
--- NOTE | 2020-09-30 14:16 | PM.PNGS ---
Progress Note: A&P Assessment and Plan (1) Ventral incisional hernia with obstruction: Onset Date: ~09/28/20 Code(s): K43.0 - Incisional hernia with obstruction, without gangrene Status: Acute Assessment and Plan: Patient doing well postop day 1. Still not passing gas. Will continue NG with clamping routine through the day today and then placed it to her min suction overnight and see how she is doing tomorrow. Will leave Bravo catheter for 1 more day since she has only had 300 cc out so far today and it has been about 6 hours she is just sort of barely maintaining adequate urine output. ( would like to be able follow this closely for another 24 hours). (2) Obesity, Class I, BMI 30-34.9: Onset Date: Unknown Code(s): E66.9 - Obesity, unspecified Status: Acute Assessment and Plan: will encouraged patient to resume her usual diet at home when she is ready to go. Will gradually increase diet over the next few days once NG tube is out. I think she is going along the right pathway to decrease her weight and become healthier. (3) History of depression: Onset Date: Unknown Code(s): Z86.59 - Personal history of other mental and behavioral disorders Status: Acute Assessment and Plan: Will resume her anti depressant once she is taking p.o. meds again. (4) Abdominal pain: Onset Date: ~09/28/20 Code(s): R10.9 - Unspecified abdominal pain Status: Acute Assessment and Plan: Patient states that she does not have abdominal pain today a little bit discomfort along the incision itself but otherwise doing well. Will have the nurses help her keep the abdominal binder centered across the incision and umbilical area. Additional Plan Encouraged ambulation and use of IS Will begin clamping routine as patient is not having much better NG but go slow since she did have a bowel resection. Time Spent With Patient Time with patient: less than 15 minutes Subjective Subjective Date/Time Seen: 09/30/20 14:16 Post Op day: 1 Patient reports: no new complaints Interval history: The patient states that she is feeling okay. She is sitting up in a chair. She has not noticed passing any gas yet. Nurse reports that she has had very little ladder NG about 270 cc since surgery. Patient states she will try to walk in the hallway. Review of Systems Constitutional: Constitutional: Reports no additional constitutional complaints ENT: Reports other (Mucous Membranes moist.) Cardiovascular: Cardiovascular: Denies dyspnea Respiratory: Respiratory: Denies pain on inspiration and Denies dyspnea Musculoskeletal: Musculoskeletal: Reports other (No calf swelling or edema) Integumentary/Breasts: Skin/Breast: Reports system reviewed and no additional complaints, except as docu Exam Const: General: cooperative, no acute distress, alert and awake Orientation/consciousness: patient oriented x3 HENMT: Mouth: Yes moist mucous membranes Neck: Neck: normal visual inspection Chest: Chest palpation & inspection: normal inspection of the chest Resp: Effort & Inspection: normal respiratory effort Auscultation: clear to auscultation bilaterally Cardio: Jugular venous distension: no JVD Rate: regular rate Rhythm: regular rhythm GI: GI Palp: No abdominal tenderness Auscultation: normal bowel sounds Rectal Exam: deferred Other: NG with bilious colored drainage. Small amount overnight. Urinary Catheter: Urinary Catheter: patent and draining and urine clear Skin: General skin exam: normal color and no rashes or lesions noted Neuro: General: patient oriented x3 and moves all extremities Speech: normal speech Extrem: General: normal exam except as noted Psych: Mental Status: mental status grossly normal Speech and movement: Normal speech and movement present Affect: normal affect Thought content: Yes Normal thought content present Objective Data Vital Si
[2020-09-30 17:59] LABS: Glucose Point of Care 157 mg/dl (65-105)
[2020-09-30 18:15] VITALS: BP 165/77; PULSE 82; RESP 18; TEMP 37.6; O2SAT 100
[2020-09-30 21:19] VITALS: BP 152/85; PULSE 92; RESP 18; TEMP 36.5; O2SAT 97
[2020-10-01 00:15] LABS: Glucose Point of Care 140 mg/dl (65-105)
[2020-10-01] MEDS: LORazepam INJ (*CRX) 2 MG/ML VIAL 0.5 MG IV PUSH (03:15)
[2020-10-01 05:47] VITALS: BP 146/71; PULSE 84; RESP 17; TEMP 36.3; O2SAT 97
[2020-10-01 06:11] LABS: Hematocrit 33.4 % (37.0-47.0); Hemoglobin 10.7 g/dL (12.0-15.0); Mean Corpuscular Hemoglobin 27.8 pg (26-34); Mean Corpuscular Volume 86.8 fl (80-100); Mean Platelet Volume 10.5 fl (7.4-10.4); Platelet Count Result 259 k/mm3 (150-375); Red Blood Count 3.85 M/mm3 (4.2-5.4); Red Cell Distribution Width 15.3 % (11.5-14.5); White Blood Count 11.7 K/mm3 (4.5-10.0)
[2020-10-01 06:22] LABS: Anion Gap 5 mmol/L (8-16); Blood Urea Nitrogen 5 mg/dL (7-17); Calcium 8.5 mg/dL (8.4-10.2); Carbon Dioxide 27 mmol/L (22-30); Chloride 104 mmol/L (98-107); Estimated CRCL calculation 67 ml/min; Estimated Glomerular Filt Rate > 60; Glucose 135 mg/dL (65-105); Magnesium 1.7 mg/dL (1.6-2.3); Potassium 3.8 mmol/L (3.4-5.0); Sodium 136 mmol/L (137-145)
[2020-10-01] MEDS: SODIUM CHLORIDE 0.9% IV 1,000 ML 75 ML IV CONT (08:18)
[2020-10-01] MEDS: ENOXAPARIN 40 MG/0.4 ML SYRINGE SUB-Q (08:20)
[2020-10-01] MEDS: ACETAMINOPHEN 500 MG TABLET PO ×2 (08:20→18:50)
[2020-10-01 08:34] LABS: Glucose Point of Care 164 mg/dl (65-105)
--- NOTE | 2020-10-01 11:11 | PM.PNGS ---
Progress Note: A&P Assessment and Plan (1) Ventral incisional hernia with obstruction: Onset Date: ~09/28/20 Code(s): K43.0 - Incisional hernia with obstruction, without gangrene Status: Acute Assessment and Plan: Patient doing well postop day 2. Now states that she is passing gas. Patient is not nauseated and had only about 190 cc out the NG overnight. This was removed this date as we saw her. Nurses will remove her Bravo catheter in the near future as she had more than 1000 cc out over the last 24 hours. Will encourage her to increase her activities far as walking. Probably the HENRY drain for least 1 more day. (2) Obesity, Class I, BMI 30-34.9: Onset Date: Unknown Code(s): E66.9 - Obesity, unspecified Status: Acute Assessment and Plan: will encouraged patient to resume her usual diet at home when she is ready to go. Will gradually increase diet over the next few days once NG tube is out. I think she is going along the right pathway to decrease her weight and become healthier. (3) History of depression: Onset Date: Unknown Code(s): Z86.59 - Personal history of other mental and behavioral disorders Status: Acute Assessment and Plan: Will resume her anti depressant once she is taking p.o. meds again. (4) Abdominal pain: Onset Date: ~09/28/20 Code(s): R10.9 - Unspecified abdominal pain Status: Acute Assessment and Plan: Patient states that she does not have abdominal pain today a little bit discomfort along the incision itself but otherwise doing well. Will have the nurses help her keep the abdominal binder centered across the incision and umbilical area. Additional Plan Encouraged ambulation and use of IS Will begin Clear liquids for now and advance once patient has a bowel movement. Subjective Subjective Date/Time Seen: 10/01/20 11:11 Post Op day: 3 Patient reports: feels better Interval history: Patient lying in bed when we came in the room. She is not having any nausea. She is hungry. She has been getting up and walking. She had a good urine output overnight per I&Os. Review of Systems Constitutional: Constitutional: Reports no additional constitutional complaints ENT: Reports other (Mucous Membranes moist.) Cardiovascular: Cardiovascular: Denies dyspnea Respiratory: Respiratory: Denies pain on inspiration and Denies dyspnea Musculoskeletal: Musculoskeletal: Reports other (No calf swelling or edema) Integumentary/Breasts: Skin/Breast: Reports system reviewed and no additional complaints, except as docu Exam Const: General: cooperative, no acute distress, well developed, alert and awake Nutritional Appearance: well nourished Orientation/consciousness: patient oriented x3 Limitations: no limitations HENMT: Head: normal to inspection, normocephalic and atraumatic Ears: hearing grossly normal bilaterally General nose exam: Normal external nose present and Other nasal findings present ( Nasogastric tube in place and functional.) Face and sinus: normal facial exam Mouth: Yes Normal oral and palatal mucosa present, Yes tongue normal and Yes moist mucous membranes Eyes: General: appearance normal, both eyes and all related structures Pupils: Equal, round and reactive pupils present EOM: EOMs intact bilaterally Other: no scleral icterus Neck: Neck: normal visual inspection, no lymphadenopathy, trachea midline and supple Lymphatic: no lymphadenopathy noted Chest: Chest palpation & inspection: normal inspection of the chest Breast/axilla palpation: other ( breasts not examined -- appear normal to simple inspection) Resp: Effort & Inspection: normal respiratory effort and able to speak in complete sentences Auscultation: clear to auscultation bilaterally Cardio: Jugular venous distension: no JVD Rate: regular rate Rhythm: regular rhythm Heart sounds: S1 normal heart sound present and S2 normal he
[2020-10-01 11:30] VITALS: BP 133/64; PULSE 69; RESP 16; TEMP 36.2; O2SAT 97
[2020-10-01 11:31] LABS: Glucose Point of Care 244 mg/dl (65-105)
[2020-10-01] MEDS: FAMOTIDINE 20 MG TABLET PO ×2 (11:40→20:12)
[2020-10-01] MEDS: MAGNESIUM OXIDE 400 MG TABLET PO (11:40)
[2020-10-01] MEDS: INSULIN ASPART (*BKC) 100 UNITS/ML SUB-Q (11:41)
[2020-10-01] MEDS: busPIRone HCL 2.5 MG TABLET PO ×2 (11:41→20:12)
[2020-10-01] MEDS: busPIRone HCL 5 MG TABLET PO ×2 (11:41→20:12)
[2020-10-01] MEDS: LOVASTATIN 20 MG TABLET PO (11:41)
--- NOTE | 2020-10-01 12:47 | PC.NURSE ---
Tolerating a clear liquid diet, denies any nausea or pain.
--- NOTE | 2020-10-01 13:04 | PM.IMPN ---
Progress Note: A&P Assessment and Plan (1) Ventral incisional hernia with obstruction: Onset Date: ~09/28/20 Code(s): K43.0 - Incisional hernia with obstruction, without gangrene Status: Acute Assessment and Plan: Ventral hernia containing wall of nonobstructed transverse colon evident on CT scan. Hernia unable to be manually reduced. She is now s/p hernia reduction with segmental small bowel resection by Dr. Bush on 09/29/20. Appreciate general surgery consultation Analgesics available as needed for pain Dressing care and further management per General surgery (2) Small bowel obstruction: Onset Date: ~09/28/20 Code(s): K56.609 - Unspecified intestinal obstruction, unspecified as to partial versus complete obstruction Status: Resolved Assessment and Plan: CT showed closed-loop small-bowel obstruction within ventral hernia. NG tube decompression initiated. Abdominal x-ray 09/29 showed persistent SBO without evidence of free intraperitoneal air. She underwent hernia repair with small bowel resection as described above. NG tube removed. Continue clear liquid diet and advance per general surgery recommendations Discontinue IV fluids as she is tolerating PO intake. Appreciate general surgery consultation. Analgesics and antiemetics available as needed (3) Type 2 diabetes mellitus: Onset Date: Unknown Code(s): E11.9 - Type 2 diabetes mellitus without complications Status: Acute Assessment and Plan: A1c is 6.5. Blood sugars have been fairly well controlled. Continue Accu-Cheks, sliding scale insulin, and hypoglycemic protocol Holding metformin and sitagliptin (4) Hypomagnesemia: Code(s): E83.42 - Hypomagnesemia Status: Acute Assessment and Plan: Magnesium was 1.3 at presentation and she received 4 g IV magnesium sulfate. Begin daily PO magnesium oxide Monitor magnesium and other electrolytes (5) Anxiety: Code(s): F41.9 - Anxiety disorder, unspecified Status: Acute Assessment and Plan: Chronic issue acutely worsened due to hospitalization. Improved today. Resume Adorepar Subjective Date/time seen: 10/01/20 13:04 Interval history: Date of service: 10/01/2020 Gladis Nelson is a 74-year-old female with a history of type 2 diabetes mellitus, gastric bypass surgery with later reversal, and anxiety who is seen in follow-up for small bowel obstruction. She is s/p hernia reduction on 6/12/21. She is feeling well today. She is tolerating clear liquids. She denies abdominal pain, nausea, or vomiting. Her abdominal is slightly sore with movement or with coughing. She passed flatus yesterday but still no bowel movement. Denies fever or chills. She endorses mild SOB and occasional cough. Denies orthopnea or PND. No fever, chills, dizziness, lightheadedness. No urinary symptoms. She is feeling much less anxious today and is in good spirits. Review of Systems Review of Systems: All systems reviewed & are unremarkable except as noted in HPI and below Exam Narrative: Exam Narrative: Ms. Abarca is a well-nourished, well-appearing 74-year-old female who is sitting up in bed. She appears comfortable and is in NARD. Neuro: awake, alert and oriented x4, speech clear, no focal neuro deficits noted HEENMT: normocephalic, atraumatic, EOMI, sclerae anicteric, moist oral mucosa, tongue midline, nares patent Neck: supple, no lymphadenopathy Respiratory: clear to auscultation bilaterally, nonlabored breathing Cardio: regular rate, regular rhythm with S1-S2 Abdomen: nondistended, normoactive bowel sounds, midline surgical incision covered with bandage, nontender to palpation Extremities: 1+ edema of bilateral upper extremities, no erythema, cyanosis, clubbing, or tenderness to palpation, DP pulses 2+ bilaterally Skin: no rashes or lesions, warm and dry Psych: appropriate mood and affect, judgme
[2020-10-01 16:40] LABS: Glucose Point of Care 153 mg/dl (65-105)
[2020-10-01 20:06] VITALS: BP 156/72; PULSE 80; RESP 16; TEMP 36.4; O2SAT 98
[2020-10-01 20:33] LABS: Glucose Point of Care 161 mg/dl (65-105)
--- NOTE | 2020-10-02 02:03 | PCRCNOTE ---
Patient refused her 2000 updraft tx 10/01 stating they make her cough real hard to the point it is painful. She stated she has not utilized aerosol tx's for a few years. She uses Spiriva and Combivent @ home.
[2020-10-02 05:02] VITALS: BP 151/80; PULSE 100; RESP 16; TEMP 35.9; O2SAT 97
[2020-10-02 06:01] LABS: Basophils Percent Auto 0.1 % (0.2-1.2); Eosinophils Absolute Auto 0.2 K/mm3 (0-0.3); Eosinophils Percent Auto 2.1 % (0-4.4); Hematocrit 31.7 % (37.0-47.0); Hemoglobin 10.1 g/dL (12.0-15.0); Immature Granulocyte Absolute 0.08 K/mm3 (0.00-0.031); Immature Granulocyte Percent A 0.9 % (0-0.5); Lymphocytes Absolute Auto 1.55 K/mm3 (0.9-3.2); Lymphocytes Percent Auto 17.7 % (18.3-44.2); Mean Corpuscular HGB Conc 31.9 g/dl (32-36); Mean Corpuscular Hemoglobin 27.8 pg (26-34); Mean Corpuscular Volume 87.3 fl (80-100); Mean Platelet Volume 10.6 fl (7.4-10.4); Monocytes Absolute Auto 0.7 K/mm3 (0.1-0.6); Monocytes Percent Auto 7.9 % (2.6-8.5); Neutrophils Absolute Auto 6.3 K/mm3 (1.3-6.7); Neutrophils Percent Auto 71.3 % (45.5-73.1); Platelet Count Result 236 k/mm3 (150-375); Red Blood Count 3.63 M/mm3 (4.2-5.4); Red Cell Distribution Width 15.2 % (11.5-14.5); White Blood Count 8.8 K/mm3 (4.5-10.0)
[2020-10-02 06:13] LABS: Anion Gap 5 mmol/L (8-16); Blood Urea Nitrogen 3 mg/dL (7-17); Calcium 8.6 mg/dL (8.4-10.2); Carbon Dioxide 26 mmol/L (22-30); Chloride 107 mmol/L (98-107); Estimated CRCL calculation 79 ml/min; Estimated Glomerular Filt Rate > 60; Glucose 159 mg/dL (65-105); Potassium 3.4 mmol/L (3.4-5.0); Sodium 138 mmol/L (137-145)
[2020-10-02] MEDS: LOVASTATIN 20 MG TABLET PO (08:15)
[2020-10-02] MEDS: ENOXAPARIN 40 MG/0.4 ML SYRINGE SUB-Q (08:15)
[2020-10-02] MEDS: MAGNESIUM OXIDE 400 MG TABLET PO (08:15)
[2020-10-02] MEDS: busPIRone HCL 2.5 MG TABLET PO (08:15)
[2020-10-02] MEDS: busPIRone HCL 5 MG TABLET PO (08:15)
[2020-10-02] MEDS: FAMOTIDINE 20 MG TABLET PO ×2 (08:15→20:02)
[2020-10-02 08:32] LABS: Glucose Point of Care 193 mg/dl (65-105)
--- NOTE | 2020-10-02 08:53 | P.PNIM_ITS ---
Progress Note: A&P Assessment and Plan (1) Ventral incisional hernia with obstruction: Onset Date: ~09/28/20 Code(s): K43.0 - Incisional hernia with obstruction, without gangrene Status: Acute Assessment and Plan: Ventral hernia containing wall of nonobstructed transverse colon evident on CT scan. Hernia unable to be manually reduced. She is now s/p hernia reduction with segmental small bowel resection by Dr. Bush on 09/29/20. * Incision is not swollen or red * Appreciate general surgery consultation * Analgesics available as needed for pain * Dressing care and further management per General surgery (2) Small bowel obstruction: Onset Date: ~09/28/20 Code(s): K56.609 - Unspecified intestinal obstruction, unspecified as to partial versus complete obstruction Status: Resolved Assessment and Plan: CT showed closed-loop small-bowel obstruction within ventral hernia. NG tube decompression initiated. Abdominal x-ray 09/29 showed persistent SBO without evidence of free intraperitoneal air. She underwent hernia repair with small bowel resection as described above. * NG tube removed. * Diet advanced to full liquid diet and advance per general surgery recommend ations * Discontinue IV fluids as she is tolerating PO intake. * Appreciate general surgery consultation. * Analgesics and antiemetics available as needed (3) Anxiety: Code(s): F41.9 - Anxiety disorder, unspecified Status: Acute Assessment and Plan: Chronic issue acutely worsened due to hospitalization. Worse today * Increase Buspar 7.5mg PO BID to 10mg PO BID * Add home trazodone 25mg PO at bedtime (Patients home dose is 200mg but she has not had it filled since May.) * Care coordination consult to help with finding a new MD for psych (4) Depression: Qualifiers: Depression Type: unspecified Qualified Code(s): F32.9 - Major depressive disorder, single episode, unspecified Code(s): F32.9 - Major depressive disorder, single episode, unspecified Status: Acute Assessment and Plan: Chronic problem * Continue home duloxetine 60mg PO daily (5) Type 2 diabetes mellitus: Onset Date: Unknown Qualifiers: Diabetes mellitus intermission coordinator insulin use: without intermission coordinator use Diabetes mellitus complication status: without complication Qualified Code(s): E11.9 - Type 2 diabetes mellitus without complications Code(s): E11.9 - Type 2 diabetes mellitus without complications Status: Acute Assessment and Plan: A1c is 6.5. Blood sugars have been fairly well controlled. * Continue Accu-Cheks, sliding scale insulin, and hypoglycemic protocol * Holding metformin and sitagliptin (6) Hypomagnesemia: Code(s): E83.42 - Hypomagnesemia Status: Acute Assessment and Plan: Magnesium was 1.3 at presentation and she received 4 g IV magnesium sulfate. * Begin daily PO magnesium oxide * Trend magnesium and other electrolytes * Labs in the am Time Spent With Patient Time with patient: 25 - 35 minutes Subjective Date/time seen: 10/02/20 08:40 Patient is a 74 year old female with a past medical history of gastric bypass, DM2, and anxiety that was seen for small bowel obstruction whom received a hernia repair by Dr. Bush on 09/29/20. Today patient stated that she is very anxious and is unable to sleep. She stated that she has been off of her psych medication since January of 2020 due to the pandemic. Patient stated t
--- NOTE | 2020-10-02 08:53 | PM.IMPN ---
Progress Note: A&P Assessment and Plan (1) Ventral incisional hernia with obstruction: Onset Date: ~09/28/20 Code(s): K43.0 - Incisional hernia with obstruction, without gangrene Status: Acute Assessment and Plan: Ventral hernia containing wall of nonobstructed transverse colon evident on CT scan. Hernia unable to be manually reduced. She is now s/p hernia reduction with segmental small bowel resection by Dr. Bush on 09/29/20. Incision is not swollen or red Appreciate general surgery consultation Analgesics available as needed for pain Dressing care and further management per General surgery (2) Small bowel obstruction: Onset Date: ~09/28/20 Code(s): K56.609 - Unspecified intestinal obstruction, unspecified as to partial versus complete obstruction Status: Resolved Assessment and Plan: CT showed closed-loop small-bowel obstruction within ventral hernia. NG tube decompression initiated. Abdominal x-ray 09/29 showed persistent SBO without evidence of free intraperitoneal air. She underwent hernia repair with small bowel resection as described above. NG tube removed. Diet advanced to full liquid diet and advance per general surgery recommendations Discontinue IV fluids as she is tolerating PO intake. Appreciate general surgery consultation. Analgesics and antiemetics available as needed (3) Anxiety: Code(s): F41.9 - Anxiety disorder, unspecified Status: Acute Assessment and Plan: Chronic issue acutely worsened due to hospitalization. Worse today Increase Buspar 7.5mg PO BID to 10mg PO BID Add home trazodone 25mg PO at bedtime (Patients home dose is 200mg but she has not had it filled since May.) Care coordination consult to help with finding a new MD for psych (4) Depression: Qualifiers: Depression Type: unspecified Qualified Code(s): F32.9 - Major depressive disorder, single episode, unspecified Code(s): F32.9 - Major depressive disorder, single episode, unspecified Status: Acute Assessment and Plan: Chronic problem Continue home duloxetine 60mg PO daily (5) Type 2 diabetes mellitus: Onset Date: Unknown Qualifiers: Diabetes mellitus bed bug exterminator insulin use: without bed bug exterminator use Diabetes mellitus complication status: without complication Qualified Code(s): E11.9 - Type 2 diabetes mellitus without complications Code(s): E11.9 - Type 2 diabetes mellitus without complications Status: Acute Assessment and Plan: A1c is 6.5. Blood sugars have been fairly well controlled. Continue Accu-Cheks, sliding scale insulin, and hypoglycemic protocol Holding metformin and sitagliptin (6) Hypomagnesemia: Code(s): E83.42 - Hypomagnesemia Status: Acute Assessment and Plan: Magnesium was 1.3 at presentation and she received 4 g IV magnesium sulfate. Begin daily PO magnesium oxide Trend magnesium and other electrolytes Labs in the am Time Spent With Patient Time with patient: 25 - 35 minutes Subjective Date/time seen: 10/02/20 08:40 Patient is a 74 year old female with a past medical history of gastric bypass, DM2, and anxiety that was seen for small bowel obstruction whom received a hernia repair by Dr. Bush on 09/29/20. Today patient stated that she is very anxious and is unable to sleep. She stated that she has been off of her psych medication since January of 2020 due to the pandemic. Patient stated that she normally sees Dr. Kern, however, has not been able to stay with him since she does not have skype to do virtual visits, and she also stated that she does not drive and that she cannot get to the office either. She stated that she thinks she was on Buspar 20mg BID before for mean years, and that her MD has put her on BuSpar a 7.5mg that she started last week on . She continued that this was not helping her and
[2020-10-02] MEDS: HYDROcodone/acetaminophen (*CRX) 5-325 MG TABLET 1 TAB PO (10:58)
[2020-10-02 11:44] LABS: Glucose Point of Care 276 mg/dl (65-105)
[2020-10-02] MEDS: INSULIN ASPART (*BKC) 100 UNITS/ML SUB-Q (12:02)
[2020-10-02 14:28] VITALS: BP 144/67; PULSE 82; RESP 18; TEMP 37.3; O2SAT 98
--- NOTE | 2020-10-02 16:07 | PM.PNGS ---
Progress Note: A&P Assessment and Plan (1) Ventral incisional hernia with obstruction: Onset Date: ~09/28/20 Code(s): K43.0 - Incisional hernia with obstruction, without gangrene Status: Acute Assessment and Plan: Patient doing well postop day 3. Now states that she is passing gas but no BM yet. Patient is not nauseated . Did well with NG out last night. Bravo catheter removed yesterday and voiding OK. Will encourage her to increase her activities far as walking. Nurse to remove the HENRY drain today (onl,y 10 cc out overnight. (2) Obesity, Class I, BMI 30-34.9: Onset Date: Unknown Code(s): E66.9 - Obesity, unspecified Status: Acute Assessment and Plan: will encouraged patient to resume her usual diet at home when she is ready to go. Will gradually increase diet over the next few days once NG tube is out. I think she is going along the right pathway to decrease her weight and become healthier. (3) History of depression: Onset Date: Unknown Code(s): Z86.59 - Personal history of other mental and behavioral disorders Status: Acute Assessment and Plan: Will resume her anti depressant once she is taking p.o. meds again. (4) Abdominal pain: Onset Date: ~09/28/20 Code(s): R10.9 - Unspecified abdominal pain Status: Acute Assessment and Plan: Patient states that she does not have abdominal pain today a little bit discomfort along the incision itself but otherwise doing well. Will have the nurses help her keep the abdominal binder centered across the incision and umbilical area. Additional Plan Encouraged ambulation and use of IS I will ask hospitalist to address anxiety medications. Will begin Full liquids for now and advance once patient has a bowel movement. Subjective Subjective Date/Time Seen: 10/02/20 08:07 Review of Systems Constitutional: Constitutional: Reports as per HPI, Reports no additional constitutional complaints and Denies headache(s) Eyes: Eyes: Denies loss of vision and Denies eye pain ENT: Reports Normal hearing present, Denies change in voice, Denies dizziness, Denies headache(s) and Reports other (Mucous Membranes moist.) Cardiovascular: Cardiovascular: Denies chest pain and Denies dyspnea Respiratory: Respiratory: Denies pain on inspiration, Denies dyspnea and Denies wheezing Gastrointestinal: Gastrointestinal: Denies melena, Denies diarrhea, Denies loose stools and Denies vomiting Comments: Much abdominal pain today and tolerated clear liquids last night Genitourinary: Comments: voiding okay with Bravo out. Musculoskeletal: Musculoskeletal: Denies back pain, Denies arthralgias and Reports other (No calf swelling or edema) Integumentary/Breasts: Skin/Breast: Reports system reviewed and no additional complaints, except as docu Neurologic: Reports Normal hearing present, Denies dizziness, Denies headache(s), Denies loss of vision and Denies memory loss Psychiatric: Psychiatric: Reports anxiety ( Feels like her anxiety medications are strong enough), Reports depression, Denies memory loss and Denies panic attacks Endocrine: Endocrine: Reports no additional endocrine complaints Hematologic/Lymphatic: Hematologic/Lymphatic: Reports no additional hematologic/lymphatic complaints Allergic/Immunologic: Allergic/Immunologic: Denies wheezing Exam Const: General: cooperative, no acute distress, well developed, alert and awake Nutritional Appearance: well nourished Orientation/consciousness: patient oriented x3 Limitations: no limitations HENMT: Head: normal to inspection, normocephalic and atraumatic Ears: hearing grossly normal bilaterally General nose exam: Normal external nose present and Other nasal findings present ( Nasogastric tube in place and functional.) Face and sinus: normal facial exam Mouth: Yes Normal oral and palatal mucosa present, Yes tongue normal and Yes moist mucous memb
[2020-10-02 16:29] LABS: Glucose Point of Care 125 mg/dl (65-105)
[2020-10-02] MEDS: BISACODYL 10 MG SUPPOSITORY RECTAL (17:02)
[2020-10-02 19:51] VITALS: BP 153/78; PULSE 67; RESP 18; TEMP 35.9; O2SAT 100
[2020-10-02] MEDS: ACETAMINOPHEN 500 MG TABLET PO (20:02)
[2020-10-02] MEDS: traZODone HCL 25 MG TABLET PO (20:02)
[2020-10-02] MEDS: busPIRone HCL 10 MG TABLET PO (20:02)
[2020-10-02 20:20] LABS: Glucose Point of Care 169 mg/dl (65-105)
[2020-10-03 05:29] VITALS: BP 151/63; PULSE 71; RESP 16; TEMP 35.8; O2SAT 96
[2020-10-03 06:05] LABS: Alanine Aminotransferase 12 U/L (4-35); Albumin Level 3.1 g/dL (3.5-5.1); Alkaline Phosphatase 32 U/L (38-126); Anion Gap 4 mmol/L (8-16); Aspartate Amino Transferase 16 U/L (14-36); Bilirubin,Total 0.3 mg/dL (0.2-1.3); Blood Urea Nitrogen 6 mg/dL (7-17); Calcium 8.6 mg/dL (8.4-10.2); Carbon Dioxide 25 mmol/L (22-30); Chloride 107 mmol/L (98-107); Estimated CRCL calculation 96 ml/min; Estimated Glomerular Filt Rate > 60; Glucose 164 mg/dL (65-105); Magnesium 1.7 mg/dL (1.6-2.3); Sodium 136 mmol/L (137-145)
[2020-10-03 06:30] LABS: Hematocrit 35.5 % (37.0-47.0); Hemoglobin 11.2 g/dL (12.0-15.0); Mean Corpuscular HGB Conc 31.5 g/dl (32-36); Mean Corpuscular Hemoglobin 27.7 pg (26-34); Mean Corpuscular Volume 87.7 fl (80-100); Mean Platelet Volume 10.4 fl (7.4-10.4); Platelet Count Result 295 k/mm3 (150-375); Red Blood Count 4.05 M/mm3 (4.2-5.4); Red Cell Distribution Width 15.5 % (11.5-14.5); White Blood Count 10.3 K/mm3 (4.5-10.0)
[2020-10-03] MEDS: LOVASTATIN 20 MG TABLET PO (08:14)
[2020-10-03] MEDS: FAMOTIDINE 20 MG TABLET PO ×2 (08:14→20:51)
[2020-10-03] MEDS: busPIRone HCL 10 MG TABLET PO ×2 (08:14→20:51)
[2020-10-03] MEDS: MAGNESIUM OXIDE 400 MG TABLET PO (08:14)
[2020-10-03] MEDS: ENOXAPARIN 40 MG/0.4 ML SYRINGE SUB-Q (08:14)
[2020-10-03 08:27] LABS: Glucose Point of Care 226 mg/dl (65-105)
[2020-10-03] MEDS: INSULIN ASPART (*BKC) 100 UNITS/ML SUB-Q ×2 (08:32→17:05)
[2020-10-03] MEDS: ACETAMINOPHEN 500 MG TABLET PO ×2 (11:41→15:02)
[2020-10-03 12:07] LABS: Glucose Point of Care 169 mg/dl (65-105)
--- NOTE | 2020-10-03 13:01 | PM.PNGS ---
Progress Note: A&P Assessment and Plan (1) Ventral incisional hernia with obstruction: Onset Date: ~09/28/20 Code(s): K43.0 - Incisional hernia with obstruction, without gangrene Status: Acute Assessment and Plan: Patient doing well postop day 4. Now states that she is passing gas and pt and urse confirm one small spontaneous BM yesterday before she recieved a suppository and then had another small BM . Patient is not nauseated . Bravo catheter removed Thursday and voiding OK. Will encourage her to increase her activities far as walking. Nurse to removed the HENRY drain on 10/02. Patient's abdomen does not seem to be distended but I would like her to have 1 more bowel movement before being discharged. Otherwise she is anxious to go since she would like to be able to see her psychology care provider soon. She knows to see me in follow-up in about 2 weeks in the office. (2) Obesity, Class I, BMI 30-34.9: Onset Date: Unknown Code(s): E66.9 - Obesity, unspecified Status: Acute Assessment and Plan: Encouraged patient to resume her usual diet at home when she is ready to go. Diet here seems to be progressing okay patient is still being careful in eating small meals each time she eats because of her poor gastric emptying. I think she is going along the right pathway to decrease her weight and become healthier. (3) History of depression: Onset Date: Unknown Code(s): Z86.59 - Personal history of other mental and behavioral disorders Status: Acute Assessment and Plan: Her anti depressants have now been resumed once she began taking p.o. meds again. (4) Abdominal pain: Onset Date: ~09/28/20 Code(s): R10.9 - Unspecified abdominal pain Status: Acute Assessment and Plan: Patient states that she does not have abdominal pain today a little bit discomfort along the incision itself but otherwise doing well. Will have the nurses help her keep the abdominal binder centered across the incision and umbilical area. Additional Plan Encouraged ambulation and use of IS I will ask hospitalist to address anxiety medications and address her continued anxeity. Will give the pt one dose of MOM now and if she has a bowel movement later today she could possibly go home. Patient feels like need AVR black pains usually help her have a bowel movement so will try to arrange for her to be able to get this for her supper tonight if she has not had a bowel movement by then. Subjective Subjective Date/Time Seen: 10/03/20 13:01 Post Op day: 4 (Continuing to improve but only 1 bowel movement so far since surgery.) Patient reports: feels better Interval history: patient has been moved up to a soft diabetic diet and is tolerating it okay. States she is passing flatus but no bowel movement other than a small 1 yesterday. Review of Systems Constitutional: Constitutional: Reports as per HPI, Reports no additional constitutional complaints and Denies headache(s) Comments: Some increased Anxiety. Eyes: Eyes: Denies loss of vision and Denies eye pain ENT: Reports Normal hearing present, Denies change in voice, Denies dizziness, Denies headache(s) and Reports other (Mucous Membranes moist.) Cardiovascular: Cardiovascular: Denies chest pain and Denies dyspnea Respiratory: Respiratory: Denies pain on inspiration, Denies dyspnea and Denies wheezing Gastrointestinal: Gastrointestinal: Reports as per HPI, Denies melena, Denies diarrhea, Denies loose stools, Denies nausea and Denies vomiting Genitourinary: Comments: Reports no difficulty urinating after fully removed. Musculoskeletal: Musculoskeletal: Denies back pain, Denies arthralgias and Reports other (No calf swelling or edema) Integumentary/Breasts: Skin/Breast: Reports system reviewed and no additional complaints, except as docu Neurologic: Reports Normal hearing present, Denies dizziness, Denies headache(s), Den
[2020-10-03] MEDS: MAGNESIUM HYDROXIDE SUSP 30 ML UDC PO (13:10)
[2020-10-03 14:00] VITALS: BP 153/84; PULSE 69; RESP 16; TEMP 36.8; O2SAT 100
--- NOTE | 2020-10-03 15:56 | P.PNIM_ITS ---
Progress Note: A&P Assessment and Plan (1) Ventral incisional hernia with obstruction: Onset Date: ~09/28/20 Code(s): K43.0 - Incisional hernia with obstruction, without gangrene Status: Acute Assessment and Plan: Ventral hernia containing wall of nonobstructed transverse colon evident on CT scan. Hernia unable to be manually reduced. She is now s/p hernia reduction with segmental small bowel resection by Dr. Bush on 09/29/20. * Incision is not swollen or red * Appreciate general surgery consultation * Analgesics available as needed for pain * Dressing care and further management per General surgery (2) Small bowel obstruction: Onset Date: ~09/28/20 Code(s): K56.609 - Unspecified intestinal obstruction, unspecified as to partial versus complete obstruction Status: Resolved Assessment and Plan: CT showed closed-loop small-bowel obstruction within ventral hernia. NG tube decompression initiated. Abdominal x-ray 09/29 showed persistent SBO without evidence of free intraperitoneal air. She underwent hernia repair with small bowel resection as described above. * NG tube removed. * Diet advanced to Carb consistent diet and advance per general surgery recom mendations * Discontinue IV fluids as she is tolerating PO intake. * Appreciate general surgery consultation. * Analgesics and antiemetics available as needed * Miralax once given (3) Anxiety: Code(s): F41.9 - Anxiety disorder, unspecified Status: Acute Assessment and Plan: Chronic issue acutely worsened due to hospitalization. Worse today * Increase from Buspar 7.5mg PO BID to 10mg PO BID * Increase trazodone 50mg PO at bedtime (Patients home dose is 200mg but she has not had it filled since May.) * Care coordination consult * New MD found and referral sent * Will add a one time dose of Xanax 0.125mg PO once for tonight (4) Depression: Qualifiers: Depression Type: unspecified Qualified Code(s): F32.9 - Major depressive disorder, single episode, unspecified Code(s): F32.9 - Major depressive disorder, single episode, unspecified Status: Acute Assessment and Plan: Chronic problem * Continue home duloxetine 60mg PO daily (5) Type 2 diabetes mellitus: Onset Date: Unknown Qualifiers: Diabetes mellitus complication status: without complication Diabetes mellitus superintendent container terminal insulin use: without superintendent container terminal use Qualified Code(s): E11.9 - Type 2 diabetes mellitus without complications Code(s): E11.9 - Type 2 diabetes mellitus without complications Status: Acute Assessment and Plan: A1c is 6.5. Blood sugars have been fairly well controlled. * Continue Accu-Cheks, sliding scale insulin, and hypoglycemic protocol * Holding metformin and sitagliptin (6) Hypomagnesemia: Code(s): E83.42 - Hypomagnesemia Status: Acute Assessment and Plan: Magnesium was 1.3 at presentation and she received 4 g IV magnesium sulfate. * Begin daily PO magnesium oxide * Trend magnesium and other electrolytes * Labs in the am Subjective Date/time seen: 10/03/20 14:45 Patient is a 74 year old female with a past medical history of gastric bypass, DM2, and anxiety that was seen for small bowel obstruction whom received a hernia repair by Dr. Bush on 09/29/20. Today patient was up walking the halls. She voiced that she was not having any problems but is ready to go home. Dr. Bush explained that she needs to
--- NOTE | 2020-10-03 15:56 | PM.IMPN ---
Progress Note: A&P Assessment and Plan (1) Ventral incisional hernia with obstruction: Onset Date: ~09/28/20 Code(s): K43.0 - Incisional hernia with obstruction, without gangrene Status: Acute Assessment and Plan: Ventral hernia containing wall of nonobstructed transverse colon evident on CT scan. Hernia unable to be manually reduced. She is now s/p hernia reduction with segmental small bowel resection by Dr. Bush on 09/29/20. Incision is not swollen or red Appreciate general surgery consultation Analgesics available as needed for pain Dressing care and further management per General surgery (2) Small bowel obstruction: Onset Date: ~09/28/20 Code(s): K56.609 - Unspecified intestinal obstruction, unspecified as to partial versus complete obstruction Status: Resolved Assessment and Plan: CT showed closed-loop small-bowel obstruction within ventral hernia. NG tube decompression initiated. Abdominal x-ray 09/29 showed persistent SBO without evidence of free intraperitoneal air. She underwent hernia repair with small bowel resection as described above. NG tube removed. Diet advanced to Carb consistent diet and advance per general surgery recommendations Discontinue IV fluids as she is tolerating PO intake. Appreciate general surgery consultation. Analgesics and antiemetics available as needed Miralax once given (3) Anxiety: Code(s): F41.9 - Anxiety disorder, unspecified Status: Acute Assessment and Plan: Chronic issue acutely worsened due to hospitalization. Worse today Increase from Buspar 7.5mg PO BID to 10mg PO BID Increase trazodone 50mg PO at bedtime (Patients home dose is 200mg but she has not had it filled since May.) Care coordination consult New MD found and referral sent Will add a one time dose of Xanax 0.125mg PO once for tonight (4) Depression: Qualifiers: Depression Type: unspecified Qualified Code(s): F32.9 - Major depressive disorder, single episode, unspecified Code(s): F32.9 - Major depressive disorder, single episode, unspecified Status: Acute Assessment and Plan: Chronic problem Continue home duloxetine 60mg PO daily (5) Type 2 diabetes mellitus: Onset Date: Unknown Qualifiers: Diabetes mellitus complication status: without complication Diabetes mellitus mcfp insulin use: without termite technician use Qualified Code(s): E11.9 - Type 2 diabetes mellitus without complications Code(s): E11.9 - Type 2 diabetes mellitus without complications Status: Acute Assessment and Plan: A1c is 6.5. Blood sugars have been fairly well controlled. Continue Accu-Cheks, sliding scale insulin, and hypoglycemic protocol Holding metformin and sitagliptin (6) Hypomagnesemia: Code(s): E83.42 - Hypomagnesemia Status: Acute Assessment and Plan: Magnesium was 1.3 at presentation and she received 4 g IV magnesium sulfate. Begin daily PO magnesium oxide Trend magnesium and other electrolytes Labs in the am Subjective Date/time seen: 10/03/20 14:45 Patient is a 74 year old female with a past medical history of gastric bypass, DM2, and anxiety that was seen for small bowel obstruction whom received a hernia repair by Dr. Bush on 09/29/20. Today patient was up walking the halls. She voiced that she was not having any problems but is ready to go home. Dr. Bush explained that she needs to have a decent BM before she should go home. Patient had 2 prune juice and some MOM which has not worked yet. She also stated that he anxiety was a little better, but she still feels very anxious. She is otherwise tolerating a diet and also talked to her about how important it was that she made her appointment with the psych doctor. The referral was made and the paperwork was faxed over. She denies chest pain, palpitations, nu
[2020-10-03 17:05] LABS: Glucose Point of Care 220 mg/dl (65-105)
[2020-10-03] MEDS: polyethylene glycoL 3350 17 GM POWD.PACK PO (20:51)
[2020-10-03] MEDS: traZODone HCL 50 MG TABLET PO (20:51)
[2020-10-03] MEDS: ALPRAZolam (*CRX) 0.125 MG TABLET PO (20:51)
[2020-10-03 21:19] VITALS: BP 151/76; PULSE 72; RESP 18; TEMP 36; O2SAT 100
[2020-10-03 21:50] LABS: Glucose Point of Care 142 mg/dl (65-105)
[2020-10-04 05:43] LABS: Hematocrit 33.4 % (37.0-47.0); Hemoglobin 10.9 g/dL (12.0-15.0); Mean Corpuscular HGB Conc 32.6 g/dl (32-36); Mean Corpuscular Hemoglobin 28.1 pg (26-34); Mean Corpuscular Volume 86.1 fl (80-100); Mean Platelet Volume 10.6 fl (7.4-10.4); Platelet Count Result 283 k/mm3 (150-375); Red Blood Count 3.88 M/mm3 (4.2-5.4); Red Cell Distribution Width 15.3 % (11.5-14.5); White Blood Count 9.1 K/mm3 (4.5-10.0)
[2020-10-04 06:09] LABS: Alanine Aminotransferase 15 U/L (4-35); Albumin Level 3.4 g/dL (3.5-5.1); Alkaline Phosphatase 35 U/L (38-126); Anion Gap 4 mmol/L (8-16); Aspartate Amino Transferase 23 U/L (14-36); Bilirubin,Total 0.4 mg/dL (0.2-1.3); Blood Urea Nitrogen 5 mg/dL (7-17); Calcium 9.1 mg/dL (8.4-10.2); Carbon Dioxide 31 mmol/L (22-30); Chloride 104 mmol/L (98-107); Estimated CRCL calculation 79 ml/min; Estimated Glomerular Filt Rate > 60; Glucose 171 mg/dL (65-105); Potassium 5.1 mmol/L (3.4-5.0); Sodium 139 mmol/L (137-145)
[2020-10-04 06:16] VITALS: BP 157/83; PULSE 86; RESP 18; TEMP 36.6; O2SAT 100
[2020-10-04 08:00] VITALS: O2SAT 100
[2020-10-04 08:03] LABS: Glucose Point of Care 188 mg/dl (65-105)
[2020-10-04] MEDS: LOVASTATIN 20 MG TABLET PO (08:44)
[2020-10-04] MEDS: MAGNESIUM OXIDE 400 MG TABLET PO (08:45)
[2020-10-04] MEDS: busPIRone HCL 10 MG TABLET PO (08:45)
[2020-10-04] MEDS: ENOXAPARIN 40 MG/0.4 ML SYRINGE SUB-Q (08:46)
[2020-10-04] MEDS: FAMOTIDINE 20 MG TABLET PO (08:46)
[2020-10-04] MEDS: polyethylene glycoL 3350 17 GM POWD.PACK PO (08:47)
--- NOTE | 2020-10-04 09:02 | PCRCNOTE ---
Pt keeps refusing budesonide neb, but will take her spiriva.
[2020-10-04 10:01] VITALS: BP 178/83; PULSE 83; RESP 18; TEMP 36.7; O2SAT 97
--- NOTE | 2020-10-04 10:49 | PM.PNGS ---
Progress Note: A&P Assessment and Plan (1) Ventral incisional hernia with obstruction: Onset Date: ~09/28/20 Code(s): K43.0 - Incisional hernia with obstruction, without gangrene Status: Acute Assessment and Plan: Patient continues to improve on POD5. Pain is controlled, tolerating activity, and tolerating a diet. She has had a BM. Incision looks good without any signs of infection. This is clean and dry, although we will continue to encourage using a dressing (ABD or gauze) over the incision when wearing the abdominal binder to protect this area. Okay from a surgical standpoint for her to be dishcarged home when okay with other services. F/u in [address] Bsuh. I discussed d/c instructions with her. (2) Obesity, Class I, BMI 30-34.9: Onset Date: Unknown Code(s): E66.9 - Obesity, unspecified Status: Acute (3) History of depression: Onset Date: Unknown Code(s): Z86.59 - Personal history of other mental and behavioral disorders Status: Acute Assessment and Plan: Management per Hospitalist. Patient reportedly has an appointment with a primary care provider tomorrow to discuss management. (4) Abdominal pain: Onset Date: ~09/28/20 Code(s): R10.9 - Unspecified abdominal pain Status: Acute Assessment and Plan: Abdominal pain has resolved, no complaints of pain today. See plan above. Additional Plan I have discussed the plan of care with Dr. Bush. Subjective Subjective Date/Time Seen: 10/04/20 09:49 Post Op day: 5 Patient reports: no new complaints, feels better (Not having any pain), tolerating a regular diet, voiding w/o difficulty, flatus, bowel movement and afebrile Interval history: Patient seen this morning. She has no specific complaints. Reports overall is doing well. No abdominal pain. Tolerating activity and her diet. The nurse does have some concerns with the bottom of her incision, which I will evaluate during my exam. Review of Systems Review of Systems: All systems reviewed & are unremarkable except as noted in HPI and below Constitutional: Constitutional: Reports as per HPI, Reports no additional constitutional complaints, Denies chills and Denies fever(s) Cardiovascular: Cardiovascular: Reports no additional cardiovascular complaints, Denies chest pain and Denies leg edema Respiratory: Respiratory: Reports no additional respiratory complaints, Denies cough and Denies dyspnea Gastrointestinal: Gastrointestinal: Reports as per HPI and Reports no additional gastrointestinal complaints Neurologic: Reports system reviewed and no additional complaints, except as documented, Denies Abnormal speech present and Denies focal weakness Exam Const: General: comfortable, no acute distress, alert and awake Orientation/consciousness: patient oriented x3 Resp: Effort & Inspection: normal respiratory effort Auscultation: clear to auscultation bilaterally Cardio: Rate: regular rate Rhythm: regular rhythm GI: Inspection: non-distended and incision (Abdominal incision clean and dry, glue intact.) GI Palp: Yes Soft to palpation, No Tenderness to palpation present (GI), No Hernia present and No Rebound tenderness present Auscultation: normal bowel sounds Skin: General skin exam: normal color Neuro: General: moves all extremities and no focal motor deficits Speech: No Abnormal speech present Extrem: General: no clubbing, cyanosis or edema and no calf tenderness Psych: Mental Status: mental status grossly normal Insight: Good insight present (Psych) Judgement: Good judgement present (Psych) Objective Data Vital Signs Vital Signs: Vital Signs - 24 hr 10/03/20 14:00 10/03/20 21:19 10/04/20 06:16 Temperature 98.2 F 96.8 F L 97.9 F Pulse Rate 69 72 86 Respiratory Rate 16 18 18 Blood Pressure 153/84 H 151/76 H 157/83 H Pulse Oximetry 100 100 100 10/04/20 08:00 10/04/20 10:01 Temperature 98.1 F Pulse Rate
[2020-10-04] MEDS: INSULIN ASPART (*BKC) 100 UNITS/ML SUB-Q (12:10)
[2020-10-04 12:11] LABS: Glucose Point of Care 211 mg/dl (65-105)
--- NOTE | 2020-10-04 13:16 | P.DS_ITS ---
DS: Admitting Diagnosis Admitting Diagnosis Admitting Diagnosis: Hernia with obstruction repair DS: Discharge Diagnosis Discharge Diagnosis (1) Ventral incisional hernia with obstruction: Onset Date: ~09/28/20 Code(s): K43.0 - Incisional hernia with obstruction, without gangrene Status: Acute Assessment and Plan: Ventral hernia containing wall of nonobstructed transverse colon evident on CT scan. Hernia unable to be manually reduced. She is now s/p hernia reduction with segmental small bowel resection by Dr. Bush on 09/29/20. * Incision is not swollen or red * Appreciate general surgery consultation * Analgesics available as needed for pain * Dressing care and further management per General surgery (2) Small bowel obstruction: Onset Date: ~09/28/20 Code(s): K56.609 - Unspecified intestinal obstruction, unspecified as to partial versus complete obstruction Status: Resolved Assessment and Plan: CT showed closed-loop small-bowel obstruction within ventral hernia. NG tube decompression initiated. Abdominal x-ray 09/29 showed persistent SBO without evidence of free intraperitoneal air. She underwent hernia repair with small bowel resection as described above. * NG tube removed. * Diet advanced to Carb consistent diet and advance per general surgery charles mmendations * Discontinue IV fluids as she is tolerating PO intake. * Appreciate general surgery consultation. * Analgesics and antiemetics available as needed * Miralax once given (3) Anxiety: Code(s): F41.9 - Anxiety disorder, unspecified Status: Acute Assessment and Plan: Chronic issue acutely worsened due to hospitalization. Worse today * Increase from Buspar 7.5mg PO BID to 10mg PO BID, will continue at the 10mg at dc * Increase trazodone 50mg PO at bedtime (Patients home dose is 200mg but she has not had it filled since May.) * Care coordination consult * New MD found and referral sent * Will add a one time dose of Xanax 0.125mg PO once for tonight (4) Depression: Qualifiers: Depression Type: unspecified Qualified Code(s): F32.9 - Major depressive disorder, single episode, unspecified Code(s): F32.9 - Major depressive disorder, single episode, unspecified Status: Acute Assessment and Plan: Chronic problem * Continue home duloxetine 60mg PO daily (5) Type 2 diabetes mellitus: Onset Date: Unknown Qualifiers: Diabetes mellitus roasterman insulin use: without roasterman use Diabetes mellitus complication status: without complication Qualified Code(s): E11.9 - Type 2 diabetes mellitus without complications Code(s): E11.9 - Type 2 diabetes mellitus without complications Status: Acute Assessment and Plan: A1c is 6.5. Blood sugars have been fairly well controlled. * Continue Accu-Cheks, sliding scale insulin, and hypoglycemic protocol * Holding metformin and sitagliptin (6) Hypomagnesemia: Code(s): E83.42 - Hypomagnesemia Status: Acute Assessment and Plan: Magnesium was 1.3 at presentation and she received 4 g IV magnesium sulfate. * Begin daily PO magnesium oxide * Trend magnesium and other electrolytes * Labs in the am DS: Summary Hospital Course Hospital Course: Patient is a 74 year old female with a past medical history of gastric bypass, DM2, and anxiety that was seen for small bowel obstruction whom received a hernia repair by Dr. Bush on 09/29/20.
--- NOTE | 2020-10-04 13:16 | PM.DS ---
DS: Admitting Diagnosis Admitting Diagnosis Admitting Diagnosis: Hernia with obstruction repair DS: Discharge Diagnosis Discharge Diagnosis (1) Ventral incisional hernia with obstruction: Onset Date: ~09/28/20 Code(s): K43.0 - Incisional hernia with obstruction, without gangrene Status: Acute Assessment and Plan: Ventral hernia containing wall of nonobstructed transverse colon evident on CT scan. Hernia unable to be manually reduced. She is now s/p hernia reduction with segmental small bowel resection by Dr. Bush on 09/29/20. Incision is not swollen or red Appreciate general surgery consultation Analgesics available as needed for pain Dressing care and further management per General surgery (2) Small bowel obstruction: Onset Date: ~09/28/20 Code(s): K56.609 - Unspecified intestinal obstruction, unspecified as to partial versus complete obstruction Status: Resolved Assessment and Plan: CT showed closed-loop small-bowel obstruction within ventral hernia. NG tube decompression initiated. Abdominal x-ray 09/29 showed persistent SBO without evidence of free intraperitoneal air. She underwent hernia repair with small bowel resection as described above. NG tube removed. Diet advanced to Carb consistent diet and advance per general surgery recommendations Discontinue IV fluids as she is tolerating PO intake. Appreciate general surgery consultation. Analgesics and antiemetics available as needed Miralax once given (3) Anxiety: Code(s): F41.9 - Anxiety disorder, unspecified Status: Acute Assessment and Plan: Chronic issue acutely worsened due to hospitalization. Worse today Increase from Buspar 7.5mg PO BID to 10mg PO BID, will continue at the 10mg at dc Increase trazodone 50mg PO at bedtime (Patients home dose is 200mg but she has not had it filled since May.) Care coordination consult New MD found and referral sent Will add a one time dose of Xanax 0.125mg PO once for tonight (4) Depression: Qualifiers: Depression Type: unspecified Qualified Code(s): F32.9 - Major depressive disorder, single episode, unspecified Code(s): F32.9 - Major depressive disorder, single episode, unspecified Status: Acute Assessment and Plan: Chronic problem Continue home duloxetine 60mg PO daily (5) Type 2 diabetes mellitus: Onset Date: Unknown Qualifiers: Diabetes mellitus parts counterman insulin use: without parts counterman use Diabetes mellitus complication status: without complication Qualified Code(s): E11.9 - Type 2 diabetes mellitus without complications Code(s): E11.9 - Type 2 diabetes mellitus without complications Status: Acute Assessment and Plan: A1c is 6.5. Blood sugars have been fairly well controlled. Continue Accu-Cheks, sliding scale insulin, and hypoglycemic protocol Holding metformin and sitagliptin (6) Hypomagnesemia: Code(s): E83.42 - Hypomagnesemia Status: Acute Assessment and Plan: Magnesium was 1.3 at presentation and she received 4 g IV magnesium sulfate. Begin daily PO magnesium oxide Trend magnesium and other electrolytes Labs in the am DS: Summary Hospital Course Hospital Course: Patient is a 74 year old female with a past medical history of gastric bypass, DM2, and anxiety that was seen for small bowel obstruction whom received a hernia repair by Dr. Bush on 09/29/20. Patient did have hernia repair and has been advanced from NPO to a regular diet. Patient did have a bowel movement today and does not have any complaints. She was also helped with finding a psych doctor and has made an appointment for one tomorrow at 1350. She was also treated for severe anxiety disorder, which some of her medications have been changed to meet her needs. Those will be continued upon discharge. Today she has no complaints and
[2020-10-04 14:26] VITALS: BP 164/91; PULSE 88; RESP 18; TEMP 37.2; O2SAT 98
--- NOTE | 2020-10-04 15:39 | PC.NURSE ---
On 10/04/20, the student, [ Christy Grey], provided care and completed [facility] documentation on this patient. I have reviewed the student's documentation and agree with the findings.
== END 2020-10-04 15:01 | disposition home or self-care (01) | DRG 331 ==
PROVIDERS: Physician Assistant; Surgery; Admitting Provider Internal Medicine; PCP Family Medicine; Visit Provider Nurse Practitioner
PROC: 0DB80ZZ Excision of Small Intestine, Open Approach (ICD-10-PCS; CPT 49000; principal; 2020-09-29 12:00)
DX: K43.0 Incisional hernia with obstruction, without gangrene (principal); F41.9 Anxiety disorder, unspecified; F32.9 Major depressive disorder, single episode, unspecified; E11.9 Type 2 diabetes mellitus without complications; E83.42 Hypomagnesemia; E66.9 Obesity, unspecified; M15.9 Polyosteoarthritis, unspecified; Z96.651 Presence of right artificial knee joint; Z98.84 Bariatric surgery status; Z68.32 Body mass index [BMI] 32.0-32.9, adult; Z90.49 Acquired absence of other specified parts of digestive tract
CPT/HCPCS: 36415; 74018; 74019; 80048; 80053; 82948; 83036; 83605; 83735; 84100; 85025; 85027; 86850; 86900; 86901; 88300; 88302; 88304; 88307; 94640; A9270; J0330; J0360; J0690; J1100; J1650; J1815; J2060; J2270; J2405; J2704; J2710; J3010; J3475; J7030; J7120

== ENCOUNTER 2020-10-09 18:24 | Observation (INO) | payer MEDICARE, OTHER, SELFPAY ==
--- NOTE | ~2020-10-09 | US_ITS ---
EXAMINATION: US carotid duplex BI DATE: 10/10/2020 13:19 INDICATION: TIA TECHNIQUE: Grayscale, color Doppler, and pulsed Doppler images of the cervical carotid arteries were obtained. The degree of vessel stenosis is placed in one of the following categories: normal, <50%, 5 0-69%, >=70% but less than near-occlusion, near-occlusion, or total occlusion. Note that percent sten osis relative to normal distal artery lumen diameter is indirectly measured from velocity measurement s as described by Geovanny, et al. Radiology 2003; [id number]. Notes: Normal: Peak systolic velocity <125 centimeters/sec and no plaque <50%. Peak systolic velocity <125 ( EDV <40; ICA/CCA PSV ratio <2.0; used these factors only a tandem lesions or low cardiac output or co ntralateral disease) 50-69 %: PSV 125-230 (EDV 40-100; ratio 2-4) >= 70% but less than near occlusion: PSV greater than 230 (EDV > 100; ratio> 4.0) Near Occlusion: PSV that is variable; markedly narrowed lumen Occlusion: Absent flow on color/spectral Doppler and no lumen on sharma scale. COMPARISON: None. FINDINGS: RIGHT: The right common carotid artery (CCA) peak systolic velocity (PSV) is 57 cm/s. The right internal car otid artery (ICA) PSV is 78 cm/s. The right ICA end-diastolic velocity (EDV) is 24 cm/s. The right IC A/CCA PSV ratio is 1.4. The external carotid artery (ECA) PSV is 76 cm/s. There is antegrade flow in the right vertebral artery. LEFT: The left CCA PSV is 70 cm/s. The left ICA PSV is 73 cm/s. The left ICA EDV is 31 cm/s. The left ICA/C CA PSV ratio is 1.0. The ECA PSV is 113 cm/s. There is antegrade flow in the left vertebral artery. IMPRESSION: 1. Less than 50% stenosis in the right internal carotid artery by sonographic criteria. 2. Less than 50% stenosis in the left internal carotid artery by sonographic criteria. Reviewed, dictated and finalized at location B. IMPRESSION: 1. Less than 50% stenosis in the right internal carotid artery by sonographic sara oleary. 2. Less than 50% stenosis in the left internal carotid artery by sonographic jennifer hackett.
--- NOTE | ~2020-10-09 | CT_ITS ---
EXAMINATION: CT brain wo con DATE: 10/09/2020 19:19 INDICATION: Confusion. Dizziness. TECHNIQUE: Computed tomography (CT) of the head was performed without intravenous contrast. The mA wa s adjusted according to patient size. Iterative reconstruction technique was employed. The dose-lengt h product was 605.33 mGy-cm. COMPARISON: None FINDINGS: There are scattered areas of low attenuation in the cerebral white matter, which is within normal limits for the patient's age. There is no intracranial hemorrhage, acute infarction, or abnorm al intracranial mass lesion. The ventricles are normal in size. The paranasal sinuses are clear. The orbits are normal. The mastoid air cells are normal. IMPRESSION: 1. Normal aging brain. Reviewed, dictated and finalized at location A. IMPRESSION: 1. Normal aging brain.
--- NOTE | ~2020-10-09 | MR_ITS ---
EXAMINATION: MR brain/brain stem wo con DATE: 10/10/2020 14:10 INDICATION: Transient ischemic attack. Left facial weakness. TECHNIQUE: Magnetic resonance imaging (MRI) of the brain and brainstem was performed without intraven ous contrast. Sequences included sagittal and axial T1-weighted FSE, axial diffusion-weighted FS EPI, axial T2*-weighted GRE, axial T2-weighted FLAIR Propeller, and axial T2-weighted Propeller. Apparent diffusion coefficient (ADC) maps were created. COMPARISON: Head CT 10/09/2020 FINDINGS: There are scattered areas of nonspecific increased T2-weighted signal intensity in the cere bral white matter, which is within normal limits for the patient's age. There is no intracranial hemo rrhage, acute infarction, or abnormal intracranial mass lesion. The ventricles are normal in size. Th e mastoid air cells are normal. The paranasal sinuses are clear. The orbits are normal. IMPRESSION: 1. Normal aging brain. Reviewed, dictated and finalized at location A. IMPRESSION: 1. Normal aging brain.
--- NOTE | ~2020-10-09 | XR_ITS ---
EXAMINATION: XR chest 1V portable DATE: 10/09/2020 19:20 INDICATION: Shortness of breath. TECHNIQUE: A single frontal view of the chest was obtained. COMPARISON: Chest 2 views 09/24/2020, CT abdomen and pelvis 09/28/2020 FINDINGS: The chest demonstrates clear lungs without pneumonia, pleural effusion, or pneumothorax. Th e heart size is normal. IMPRESSION: 1. No acute cardiopulmonary disease. Reviewed, dictated and finalized at location A.
[2020-10-09 18:23] VITALS: BP 135/76; PULSE 85; RESP 19; TEMP 37.1; O2SAT 97
--- NOTE | 2020-10-09 18:32 | ECG_ITS ---
Measurements Intervals [place] Rate: 84 P: 97 W[place]: 155 QRS: 16 QRSD: 81 T: 79 QT: 369 QTc: 437 Interpretive Statements SINUS RHYTHM DELAYED PRECORDIAL R/S TRANSITION BORDERLINE ST-T WAVE ABNORMALITY- INF/LAT LEADS BASELINE ARTIFACT- II, III, AVF BORDERLINE ECG Electronically Signed On 10-09-2020 19:37:27 CDT by Pineda Sands D.O.
[2020-10-09] MEDS: SODIUM CHLORIDE 0.9% IV 500 ML 999 ML IV CONT (18:49)
[2020-10-09 19:29] LABS: Base Excess ABG 0.6 mmol/L (0-2); Carboxyhemoglobin 0.2 % (0-1.5); HCO3 ABG 24.3 mmol/L (23-29); Oxyhemoglobin 94.7 % (94-100); PCO2 ABG 35.9 mmHg (35-45); PO2 ABG 76.4 mmHg (75-85); Total Hemoglobin 11.1 g/dL; pH ABG 7.45 (7.35-7.45)
[2020-10-09 19:30] LABS: Fractional Inspired Oxygen 21 %; Methemoglobin ABG 0.1 % (0-1.5); Modified Allen's Test Pass; Site Drawn RIGHT RADIAL; White Blood Count 9.3 K/mm3 (4.8-10.8)
[2020-10-09 19:31] LABS: Hematocrit 32.8 % (35.0-42.0); Hemoglobin 10.8 g/dL (11.7-13.8); Immature Granulocyte Percent A 0.9 % (0.0-0.0); Mean Corpuscular HGB Conc 32.9 g/dL (32.0-36.0); Mean Corpuscular Hemoglobin 28.6 pg (27.0-31.0); Mean Platelet Volume 10.7 fl (9.2-11.8); Platelet Count Result 304 K/mm3 (150-420); Red Blood Count 3.77 M/mm3 (4.20-5.40); Red Cell Distribution Width 15.8 % (11.6-14.4)
[2020-10-09 19:32] LABS: Basophils Absolute Auto 0.02 K/mm3 (0.00-0.10); Basophils Percent Auto 0.2 % (0.0-1.0); Eosinophils Percent Auto 3.2 % (1.0-6.0); Immature Granulocyte Absolute 0.08 K/mm3 (0.00-0.00); Lymphocytes Absolute Auto 2.56 K/mm3 (1.10-4.50); Lymphocytes Percent Auto 27.6 % (18.0-42.0); Monocytes Absolute Auto 0.58 K/mm3 (0.10-0.90); Monocytes Percent Auto 6.3 % (2.0-11.0); Neutrophils Absolute Auto 5.7 K/mm3 (1.7-7.2); Neutrophils Percent Auto 61.8 % (50.0-70.0)
[2020-10-09 19:35] LABS: Anion Gap 13 mmol/L (8-16); Blood Urea Nitrogen 14 mg/dL (7-18); Carbon Dioxide 26 mmol/L (21-32); Chloride 97 mmol/L (98-108); Estimated Glomerular Filt Rate > 60; Potassium 4.1 mmol/L (3.5-5.1); Sodium 136 mmol/L (136-145)
[2020-10-09 19:36] LABS: Alanine Aminotransferase 18 U/L (14-59); Albumin Level 3.4 g/dL (3.4-5.0); Aspartate Amino Transferase 7 U/L (15-37); Bilirubin,Total 0.3 mg/dL (0.00-1.00); Glucose 134 mg/dL (70-99); Osmolality Calculated 284 mOsm/kg (285-295); Total Protein 6.6 g/dL (6.4-8.2); Troponin I 7.6 ng/L (0.00-60.4)
[2020-10-09 19:37] LABS: Alkaline Phosphatase 41 U/L (46-116); Lactic Acid Reflex 1.1 mmol/L (0.4-2.0)
[2020-10-09 19:39] LABS: Partial Thromboplastin Time 20.6 SEC (23.90-30.70); Prothrombin Time 10.7 Seconds (9.64-11.0)
--- NOTE | 2020-10-09 19:55 | ED.WEAKNESS ---
HPI - Weakness General Chief complaint: Shortness of Breath/Dyspnea Stated complaint: amb Source: patient and EMS Limitations: no limitations History of Present Illness HPI Narrative: this is a 74-year-old female with a history of diabetes presents via EMS with some left-sided weakness with left arm weakness that was observed by EMS, was having some shortness of breath, patient has a history of anxiety disorder, has a history of diabetes hypertension and COPD. Her neurological findings have resolved completely patient has good range of motion in all extremities with no focal weakness no blurry vision no slurred speech no facial droop. Patient denies having any chest pain no abdominal pain no fever chills and currently is some doing well as far as her breathing is concerned. Complaint: focal weakness Onset (ago): hour(s) Duration: now resolved Location: left hand Migration: none Severity: mild Related Data Home Medications Medication Instructions Recorded Confirmed metformin 1,000 mg PO DAILY 03/15/19 09/28/20 metformin 500 mg PO DAILY 03/15/19 09/28/20 duloxetine 60 mg PO DAILY 09/28/20 09/28/20 lovastatin 20 mg PO DAILY 09/28/20 09/28/20 omeprazole 20 mg PO BID 09/28/20 09/28/20 sitagliptin 100 mg PO DAILY 09/28/20 09/28/20 Spiriva Respimat 2 puff INHALATION DAILY 10/01/20 10/01/20 budesonide [Pulmicort] 0.5 mg INHALATION BID 10/01/20 10/01/20 Allergies Allergy/AdvReac Type Severity Reaction Status Date / Time No Known Allergies Allergy Unknown Verified 09/04/15 15:44 Review of Systems Review of Systems: All systems reviewed & are unremarkable except as noted in HPI and below PMFSH Past Medical History Medical History Body mass index [BMI] 35.0-35.9, adult (09/27/15) Complications of gastric bypass surgery History of depression (Unknown) Left knee pain Obesity, Class I, BMI 30-34.9 (Unknown) Primary osteoarthritis of both knees Type 2 diabetes mellitus (Unknown) Surgical History Surgical History Gastric bypass status for obesity History of appendectomy History of cholecystectomy Hx of tonsillectomy Presence of right artificial knee joint Family History Family History Other Family history of arthritis Family history of malignant neoplasm Hypertension Social History Social History Smoking status: Never smoker Alcohol intake: never Substance use: never Substance use type: does not use Spiritual care concerns: No Exam Const: General: no acute distress and alert Orientation/consciousness: patient oriented x3 HENMT: Head: normal to inspection Eyes: Conjunctivae: conjunctivae normal Pupils: Equal, round and reactive pupils present EOM: EOMs intact bilaterally Direct Ophthalmoscopy: no photophobia Neck: Neck: normal visual inspection, no lymphadenopathy and no meningeal signs Chest: Chest palpation & inspection: normal inspection of the chest Resp: Effort & Inspection: normal respiratory effort Auscultation: diminished lung sounds Cardio: Rate: regular rate Rhythm: regular rhythm GI: GI Palp: Yes Soft to palpation : General: Yes no CVA tenderness Urinary Catheter: Urinary Catheter: patent and draining Back/Spine/Pelvis: Back: no CVA tenderness Skin: General skin exam: normal color Rashes: no rashes Neuro: General: patient oriented x3, moves all extremities, no meningeal signs, no focal motor deficits and CN's II-XI intact bilaterally Cranial nerves: Yes Nystagmus not present Speech: normal speech Extrem: General: normal to inspection and no pedal edema Psych: Appearance: grossly normal Mental Status: mental status grossly normal Affect: normal affect Thought content: Yes Normal thought content present Course Course Emergency Course:
[2020-10-09 20:06] VITALS: BP 141/68; PULSE 83; RESP 20; TEMP 36.6; O2SAT 95
[2020-10-09 20:40] VITALS: BMI 31.6
[2020-10-09] MEDS: SODIUM CHLORIDE 0.9% IV 1,000 ML 100 ML IV CONT (21:19)
[2020-10-09 21:52] LABS: Glucose Point of Care 167 mg/dl (65-105)
[2020-10-09 22:27] LABS: Alveolar/Arterial O2 Gradient 30.3 mmHg; Oxygen Content ABG 14.9 %vol (16.0-22.0); PO2 FiO2 Ratio Arterial Blood 3.64 %
[2020-10-09] MEDS: CLOPIDOGREL BISULFATE 75 MG TABLET PO (23:07)
[2020-10-09] MEDS: busPIRone HCL 5 MG TABLET 10 MG PO (23:07)
[2020-10-09] MEDS: traZODone HCL 50 MG TABLET 200 MG PO (23:08)
--- NOTE | 2020-10-09 23:44 | PC.NURSE ---
Patient came to floor from ER for observation for stroke like s/sx. Patient A/O x4. Denies any current CP or previous s/sx. IV present to LAC, 18g. Fluids started and running 100cc/hr.
[2020-10-10] VITALS: BP 124/58; PULSE 74; RESP 18; TEMP 36.1; O2SAT 95
[2020-10-10 04:00] VITALS: BP 146/78; PULSE 66; RESP 18; TEMP 36.3; O2SAT 96
[2020-10-10] MEDS: ACETAMINOPHEN 325 MG TABLET 650 MG PO (04:05)
[2020-10-10 05:46] LABS: Basophils Absolute Auto 0.02 K/mm3 (0.00-0.10); Basophils Percent Auto 0.3 % (0.0-1.0); Eosinophils Absolute Auto 0.35 K/mm3 (0.02-0.50); Eosinophils Percent Auto 5.4 % (1.0-6.0); Hematocrit 30.7 % (35.0-42.0); Hemoglobin 9.9 g/dL (11.7-13.8); Immature Granulocyte Absolute 0.03 K/mm3 (0.00-0.00); Immature Granulocyte Percent A 0.5 % (0.0-0.0); Lymphocytes Absolute Auto 1.92 K/mm3 (1.10-4.50); Lymphocytes Percent Auto 29.4 % (18.0-42.0); Mean Corpuscular HGB Conc 32.2 g/dL (32.0-36.0); Mean Corpuscular Hemoglobin 28.7 pg (27.0-31.0); Mean Platelet Volume 10.8 fl (9.2-11.8); Monocytes Absolute Auto 0.53 K/mm3 (0.10-0.90); Monocytes Percent Auto 8.1 % (2.0-11.0); Neutrophils Absolute Auto 3.7 K/mm3 (1.7-7.2); Neutrophils Percent Auto 56.3 % (50.0-70.0); Platelet Count Result 282 K/mm3 (150-420); Red Blood Count 3.45 M/mm3 (4.20-5.40); Red Cell Distribution Width 15.9 % (11.6-14.4); White Blood Count 6.5 K/mm3 (4.8-10.8)
[2020-10-10 06:20] LABS: Alanine Aminotransferase 19 U/L (14-59); Alkaline Phosphatase 34 U/L (46-116); Anion Gap 12 mmol/L (8-16); Aspartate Amino Transferase < 10 U/L (15-37); Bilirubin,Total 0.4 mg/dL (0.00-1.00); Blood Urea Nitrogen 10 mg/dL (7-18); Calcium 8.4 mg/dL (8.5-10.1); Carbon Dioxide 24 mmol/L (21-32); Chloride 105 mmol/L (98-108); Estimated CRCL calculation 56 ml/min; Estimated Glomerular Filt Rate > 60; Glucose 114 mg/dL (70-99); Osmolality Calculated 292 mOsm/kg (285-295); Sodium 141 mmol/L (136-145); Total Protein 5.5 g/dL (6.4-8.2)
[2020-10-10] MEDS: SODIUM CHLORIDE 0.9% IV 1,000 ML 100 ML IV CONT (07:28)
[2020-10-10 07:44] LABS: Glucose Point of Care 173 mg/dl (65-105)
[2020-10-10 08:00] VITALS: BP 142/68; PULSE 84; RESP 18; TEMP 36.7; O2SAT 94
[2020-10-10] MEDS: DULoxetine HCL 30 MG CAPSULE.DR 60 MG PO (08:58)
[2020-10-10] MEDS: metFORMIN HCL 500 MG TABLET 1000 MG PO (09:00)
[2020-10-10] MEDS: busPIRone HCL 5 MG TABLET 10 MG PO (09:00)
[2020-10-10] MEDS: PANTOPRAZOLE 40 MG TABLET PO (09:00)
[2020-10-10] MEDS: CLOPIDOGREL BISULFATE 75 MG TABLET PO (09:00)
[2020-10-10 12:00] VITALS: BP 150/75; PULSE 70; RESP 18; TEMP 36.4; O2SAT 96
[2020-10-10 12:03] LABS: Glucose Point of Care 158 mg/dl (65-105)
--- NOTE | 2020-10-10 15:41 | PM.SD2 ---
Same Day Admit/Disch: HPI History of Present Illness Chief complaint: TIA Narrative: Gladis Nelson is a 74 year old female who comes to the hospital via EMS for Left side weakness and SOB. She is being admitted for Observation for Neuro checks and MRI. Pt states that she has anxiety and explains events leading up to EMS transport. Pt states she received a phone call that sounded like a scam from [employer] stating she owes them $1500. She went to her bank and closed her account and opened another account. She has also had periumbilical hernia surgery 2 weeks ago. She explains that this has been stress upon stress building up on her. She also explains that she was having flashbacks of her late who passed in 2014. She states the flashback is of her calling her to him because he had a surprise. She states that when she arrived to see this surprise she saw her standing in place while their son was sucking . I did not ask anything else on this due to the nature of what the Pt was explaining. Pt states that she was having a panic attack with hyperventilation. She states she has had anxiety and panic attacks in the past and this one was bad given the flashbacks she was having. [facility] Past Medical History Medical History (Updated 10/10/20 @ 15:43 by TANK Cason) Aftercare following right knee joint replacement surgery Body mass index [BMI] 34.0-34.9, adult (08/03/15) Body mass index [BMI] 35.0-35.9, adult (09/27/15) Complications of gastric bypass surgery History of depression (Unknown) Left knee pain Obesity, Class I, BMI 30-34.9 (Unknown) Primary osteoarthritis of both knees Primary osteoarthritis of right knee Right knee pain Type 2 diabetes mellitus (Unknown) Surgical History Surgical History Gastric bypass status for obesity History of appendectomy History of cholecystectomy Hx of tonsillectomy Presence of right artificial knee joint Family History Family History Other Family history of arthritis Family history of malignant neoplasm Hypertension Social History Social History Smoking status: Never smoker Second hand tobacco smoke exposure: Yes (roommate smokes) Alcohol intake: never Substance use: never Substance use type: does not use Gender identity (if verbalized by the patient): Female Spiritual care concerns: No Same Day Admit/Disch: Med Pre-admit Medications Home Medications Medication Instructions Recorded Confirmed Type metformin 1,000 mg PO QAM 03/15/19 10/09/20 History metformin 500 mg PO QPM 03/15/19 10/09/20 History duloxetine 60 mg PO DAILY 09/28/20 10/09/20 History lovastatin 20 mg PO DAILY 09/28/20 10/09/20 History omeprazole 20 mg PO BID 09/28/20 10/09/20 History sitagliptin 100 mg PO DAILY 09/28/20 10/09/20 History Spiriva Respimat 2 puff INHALATION DAILY 10/01/20 10/09/20 History budesonide [Pulmicort] 0.5 mg INHALATION BID 10/01/20 10/09/20 History buspirone 10 mg PO Q12HR 30 Days #60 tablet 10/04/20 10/09/20 Rx Exam Const: General: cooperative, comfortable, no acute distress, alert and awake Nutritional Appearance: overweight HENMT: Head: normal to inspection, normocephalic and atraumatic Ears: hearing grossly normal bilaterally Eyes: General: appearance normal, both eyes and all related structures Alignment and Position: alignment normal Periorbital: periorbital findings normal Eyelids: eyelids normal Conjunctivae: conjunctivae normal Pupils: Equal, round and reactive pupils present EOM: EOMs intact bilaterally Neck: Neck: normal visual inspection, no lymphadenopathy and no JVD Resp: Effort & Inspection: normal respiratory effort Auscultation: clear to auscultation bilaterally Cardio: Rate: regular rate Heart sounds: S1 normal heart sound present GI: Inspection: other (h
--- NOTE | 2020-10-10 17:58 | PC.NURSE ---
1700 patient dc to home. dc instructions went over vocalizes an understanding.
--- NOTE | 2020-10-10 20:08 | ECHO_ITS ---
Patient Info Name: Gladis Nelson Age: 74 years : 1945 Gender: Female Ht: 61 in Wt: 169 lbs BSA: 1.85 m2 HR: 85 bpm BP: 150 / 75 mmHg Heart Rhythm: Sinus Rhythm Technical Quality: Fair Exam Date: 10/10/2020 12:52 PM Exam Location: [facility] Patient Status: Inpatient Admit Date: 10/09/2020 Staff Ordering Physician: Juan Jose Rosas MD Rfid Strategist: Meghan Biswas RDCS Attending Provider: Juan Jose Rosas MD Referring Physician: Ralph FLORES; Exam Type: CA echo doppler color flow Study Info Indications I63.239 - Cerebral infarction due to unspecified occlusion or stenosis of unspecified carotid arteries Complete two-dimensional, color flow and Doppler transthoracic echocardiogram is performed with agitated saline. Strain analysis performed. Contrast/Agitated Saline Contrast/Ag. Saline: Agitated Saline Amount: 30.00 ml Existing IV Access: Yes IV Access Condition: patent with no signs of infiltration Site Condition: No extravasation History/Risk Factors Dyslipidemia: No Congenital Heart Disease (CHD): No Diabetic Therapy: Insulin Peripheral Arterial Disease (PAD): No Chronic Lung Disease: No Obesity: Yes Renal Disease: No Coronary Artery Disease (CAD) No Congestive Heart Failure (CHF): No Cardiomyopathy/LV Systolic Dysfunction: No Diabetes Mellitus: Type II COPD: No Tobacco Use: Never Cerebrovascular Disease: TIA Deep Vein Thrombosis (DVT): None Dialysis: None Frailty Scale (CSHA): 4: Vulnerable Cardiac Arrest: No Summary 1. Left ventricular chamber dimension is normal. 2. Left ventricular systolic function is hyperdynamic, estimated at >70%. 3. There is moderately increased left ventricular wall thickness. 4. The left ventricular diastolic function is grade I diastolic dysfunction. 5. E/e' 15 is elevated. 6. Global longitudinal strain is abnormal at -15.9%. 7. Left atrial chamber dimension is mildly enlarged. 8. There is mild aortic valve sclerosis. 9. No pulmonary hypertension, estimated pulmonary arterial systolic pressure is 25 mmHg. Recommendations * Continue medical therapy for diabetes. Left Ventricle E/e' 15 is elevated. Global longitudinal strain is abnormal at -15.9%. Left ventricular chamber dimension is normal. Left ventricular systolic function is hyperdynamic, estimated at >70%. There is moderately increased left ventricular wall thickness. The left ventricular diastolic function is grade I diastolic dysfunction. Right Ventricle Right ventricular systolic function is normal and with normal TAPSE 2.0 cm. Right ventricular chamber dimension is normal. Left Atria Left atrial chamber dimension is mildly enlarged. Right Atria Right atrial chamber dimension is normal. Atrial Septum Agitated saline injection with and without valsalva maneuver opacified right side cardiac chambers without shunt to left side cardiac chanbers. Intact interatrial septum visualized by agitated saline imaging. Aortic Valve The aortic valve is trileaflet. There is mild aortic valve sclerosis. There is no aortic valve stenosis. There is no aortic valve regurgitation. Pulmonic Valve There is no pulmonic regurgitation. Mitral Valve There is no mitral valve stenosis. There is no mitral valve regurgitation. Tricuspid Valve There is no tricuspid valve regurgitation. No pulmonary hypertens
--- NOTE | 2020-10-11 10:03 | PC.NURSE ---
Pt states she received and understood her discharge instructions. Pt also states it was very good care .
== END 2020-10-10 17:00 | disposition home or self-care (01) ==
LOC: CHSED 20:03 → CHS2ND 20:10
PROVIDERS: Admitting Provider Emergency Medicine; Emergency Provider Emergency Medicine; PCP Family Medicine; Visit Provider Emergency Medicine
DX: G45.9 Transient cerebral ischemic attack, unspecified (principal); I10 Essential (primary) hypertension; J44.9 Chronic obstructive pulmonary disease, unspecified; E11.9 Type 2 diabetes mellitus without complications; E66.9 Obesity, unspecified; M17.0 Bilateral primary osteoarthritis of knee; F41.9 Anxiety disorder, unspecified; Z98.84 Bariatric surgery status; Z90.49 Acquired absence of other specified parts of digestive tract; Z68.35 Body mass index [BMI] 35.0-35.9, adult; Z96.651 Presence of right artificial knee joint
CPT/HCPCS: 36415; 36600; 70450; 70551; 71045; 80053; 82375; 82805; 82948; 83050; 83605; 84484; 85025; 85610; 85730; 93005; 93306; 93880; 96360; 96361; 96375; 99285; A9270; G0378; J7030; J7040

== ENCOUNTER 2020-12-07 09:02 | Outpatient (CLI) | payer MEDICARE, OTHER, SELFPAY ==
--- NOTE | ~2020-12-07 | CT_ITS ---
EXAMINATION: CT abdomen pelvis w con DATE: 12/07/2020 09:54 INDICATION: Left lower quadrant abdominal pain. Recent small bowel obstruction. Hernia. TECHNIQUE: Computed tomography (CT) of the abdomen and pelvis was performed with 100 cc Omnipaque int ravenous contrast. Automated exposure control and iterative reconstruction technique were employed. E xam dose: 703.78 mGy-cm total exam DLP. COMPARISON: 09/28/2020 CT abdomen pelvis FINDINGS: There is discoid atelectasis and/or scarring at the lung bases. Normal heart size. No per icardial or pleural effusion. Right foramen of [place] fat-containing hernia. Small sliding hiatal hernia. The gallbladder is absent. There is mild intrahepatic bile duct dilatation; correlation with serum b ilirubin level is recommended. No hepatic, splenic, pancreatic, and adrenal mass lesion is evident. There is a stable 2.8 cm exophytic opacity at the posterior aspect of the right kidney previously att ributed to hemorrhagic cyst, stable since 09/28/2020. 5 mm 4.5 mm right renal cortical cysts. No suspicious right or left renal mass lesion is evident. No urinary tract calculus or hydroureteronephrosis. The urinary bladder is unremarkable. 7 cm uterine fibroid.. There is atherosclerotic calcification of the abdominal aorta and iliac arteries and femoral arteries . No abdominal aortic aneurysm. No intraperitoneal or retroperitoneal or pelvic mass lesion or adenopathy or ascites is noted. There are numerous ventral fat-containing abdominal wall hernias. There is an approximately 2 x 4.7 cm seroma of the lower left anterior abdominal wall. There is extensive subcutaneous fat stranding a long the lower anterior abdominal wall consistent with cellulitis. Postoperative change of the stomach. Diverticulosis of the colon; no evidence of diverticulitis. No bowel obstruction or intraperitoneal free air. Diffuse idiopathic skeletal hyperostosis of the thoracic spine. Multilevel degenerative disc disease of the lumbar spine Degenerative change at the apophyseal joints with associated grade 1 anterolisthesis at L4-5. IMPRESSION: Cellulitis and seroma of the lower anterior abdominal wall Multiple fat-containing ventral abdominal wall hernia defects No bowel obstruction or free air Mild intrahepatic bile duct dilatation, possibly due to cholecystectomy; recommend correlation with s armando bilirubin level Postoperative change of the stomach Diverticulosis of the colon; no CT evidence of diverticulitis Stable posterior 2.8 cm previously reported right hemorrhagic renal hemorrhagic cyst. Additional very small right renal cysts Fibroid uterus Reviewed, dictated and finalized at [facility]. Reviewed, dictated and finalized at [facility]. IMPRESSION: Cellulitis and seroma of the lower anterior abdominal wall Multiple fat-containing ventral abdominal wall hernia defects No bowel obstruction or free air Mild intrahepatic bile duct dilatation, possibly due to cholecystectomy; recomm end correlation with serum bilirubin level Postoperative change of the stomach Diverticulosis of the colon; no CT evidence of diverticulitis Stable posterior 2.8 cm previously reported right hemorrhagic renal hemorrhagic cyst. Additional very small right renal cysts Fibroid uterus
[2020-12-07 09:23] LABS: Estimated Glomerular Filt Rate > 60
== END 2020-12-07 09:03 | disposition home or self-care (01) ==
LOC: CHSIMG 09:04
PROVIDERS: PCP Family Medicine; Visit Provider Family Medicine
DX: R10.32 Left lower quadrant pain (principal)
CPT/HCPCS: 74177; Q9967

== ENCOUNTER 2021-07-02 14:20 | Emergency (ER) | payer MEDICARE, OTHER, SELFPAY ==
--- NOTE | ~2021-07-02 | CT_ITS ---
EXAMINATION: CT abdomen pelvis w con DATE: 07/02/2021 15:58 INDICATION: Left upper quadrant abdominal pain for 3 days. History of hernia. TECHNIQUE: Computed tomography (CT) of the abdomen and pelvis was performed with 100 CC Omnipaque 350 intravenous contrast. Automated exposure control and iterative reconstruction technique were employe d. Exam dose: 823.62 mGy-cm total exam DLP. COMPARISON: 12/07/2020 CT abdomen pelvis FINDINGS: There is mild discoid atelectasis or scarring at the lung bases. Heart size is within migdalia l range. No pericardial or pleural effusion. There is a small sliding hiatal hernia Postoperative change of the stomach. There, bile duct measures up to 8 mm diameter. There is intrahepatic bile duct dilatation throughout the left and right hepatic lobes. This is stable since 09/28/2020, likely secondary to cholecystectomy . No hepatic, splenic, pancreatic, adrenal or suspicious renal space occupying mass lesion is evident. There are a few small right renal cysts. Stable posterior right renal 2.8 cm hemorrhagic cyst and 09/18.. No urinary tract calculus or hydroureteronephrosis. There is moderate diffuse thickening of the urinary bladder wall since 09/28/2010 smoke consider cysti tis. Fibroid uterus. There is atherosclerotic calcification of the abdominal aorta but no aneurysm. There is atherosclerot ic calcification of the origins of the renal arteries, particularly prominent on the right. No intrap eritoneal or retroperitoneal or pelvic mass lesion or adenopathy or ascites is detected. There are multiple defects of the ventral abdominal wall, some with fat herniation, several containin g colon and small bowel, without apparent obstruction. There is extensive soft tissue infiltration of the anterior abdominal wall subcutaneous fat suggesting inflammation, infection or hematoma. Diverticulosis of the colon; no CT evidence of diverticulitis. There are scattered small bowel fluid levels no small bowel dilatation. There is diffuse osteopenia. Severe degenerative disc disease L3-4, L4-5. There is prominent apophyseal joint degenerative change of the lumbar spine with associated grade 1 anterolisthesis at L4-5. There is degenerative spurring o f the lower thoracic spine. No suspicious osteolytic or osteoblastic lesions are noted. IMPRESSION: Extensive soft tissue infiltration of the adipose tissue of the lower anterior abdominal wall; consider infection, inflammation, hemorrhage Multiple ventral abdominal wall hernias, some containing fat, several containing small and/or large b owel. Small sliding hiatal hernia Postoperative change of the stomach Status post cholecystectomy Chronic bile duct dilatation, likely due to prior cholecystectomy Fibroid uterus Diverticulosis of the colon Chronic renal cysts Reviewed, dictated and finalized at [facility]. Reviewed, dictated and finalized at [facility]. IMPRESSION: Extensive soft tissue infiltration of the adipose tissue of the low er anterior abdominal wall; consider infection, inflammation, hemorrhage Multiple ventral abdominal wall hernias, some containing fat, several containin g small and/or large bowel. Small sliding hiatal hernia Postoperative change of the stomach Status post cholecystectomy Chronic bile duct dilatation, likely due to prior cholecystectomy Fibroid uterus Diverticulosis of the colon Chronic renal cysts
[2021-07-02 14:35] VITALS: BP 155/76; PULSE 89; RESP 16; TEMP 36.2; O2SAT 99
--- NOTE | 2021-07-02 14:48 | ECG_ITS ---
Measurements Intervals [place] Rate: 69 P: 112 CT: 134 QRS: 14 QRSD: 96 T: 57 QT: 424 QTc: 455 Interpretive Statements SINUS RHYTHM POOR R WAVE PROGRESSION BUT OTHERWISE NORMAL EKG NO SIGNIFICANT CHANGES Electronically Signed On 07-02-2021 18:45:07 CDT by Hoda Santana M.D.
[2021-07-02 15:14] LABS: Basophils Absolute Auto 0.02 K/mm3 (0.00-0.10); Basophils Percent Auto 0.2 % (0.0-1.0); Eosinophils Absolute Auto 0.76 K/mm3 (0.02-0.50); Eosinophils Percent Auto 9.1 % (1.0-6.0); Hematocrit 35.6 % (35.0-42.0); Immature Granulocyte Absolute 0.03 K/mm3 (0.00-0.00); Immature Granulocyte Percent A 0.4 % (0.0-0.0); Lymphocytes Absolute Auto 2.65 K/mm3 (1.10-4.50); Lymphocytes Percent Auto 31.6 % (18.0-42.0); Mean Corpuscular HGB Conc 30.9 g/dL (32.0-36.0); Mean Corpuscular Hemoglobin 25.9 pg (27.0-31.0); Mean Platelet Volume 11.3 fl (9.2-11.8); Monocytes Absolute Auto 0.47 K/mm3 (0.10-0.90); Monocytes Percent Auto 5.6 % (2.0-11.0); Neutrophils Absolute Auto 4.5 K/mm3 (1.7-7.2); Neutrophils Percent Auto 53.1 % (50.0-70.0); Platelet Count Result 268 K/mm3 (150-420); Red Blood Count 4.24 M/mm3 (4.20-5.40); Red Cell Distribution Width 15.9 % (11.6-14.4); White Blood Count 8.4 K/mm3 (4.8-10.8)
[2021-07-02] MEDS: ONDANSETRON INJ 4 MG/2 ML VIAL IV PUSH (15:23)
[2021-07-02] MEDS: PANTOPRAZOLE SODIUM IV 40 MG VIAL IV PUSH (15:23)
[2021-07-02 15:26] LABS: Add Urine Microscopic? YES; Appearance Urine Clear (Clear); Bilirubin Urine Negative (Negative); Blood Urine Negative (Negative); Color Urine Light Yellow (Yellow); Glucose Urine UA Negative (Negative); Ketones Urine Trace (Negative); Leukocyte Esterase Ur 1+ LEU/UL (Negative); Nitrate Urine Negative (Negative); Protein Urine Negative (Negative); Specific Grav Ur 1.015 (1.010-1.020); Urobilinogen Urine 0.2 mg/dL (0.2-1.0)
[2021-07-02 15:31] LABS: Bacteria Urine 1+ /hpf; Lactic Acid Reflex 1.2 mmol/L (0.4-2.0); RBC Urine None seen /hpf (0-2); Squamous Epithelial Cell Urine Few /hpf (Few); WBC Urine 0-3 /hpf (0-3)
[2021-07-02 15:32] LABS: Alanine Aminotransferase 14 U/L (14-59); Albumin Level 3.6 g/dL (3.4-5.0); Alkaline Phosphatase 46 U/L (46-116); Anion Gap 9 mmol/L (8-16); Aspartate Amino Transferase < 10 U/L (15-37); Bilirubin,Total 0.2 mg/dL (0.00-1.00); Blood Urea Nitrogen 19 mg/dL (7-18); Calcium 9.2 mg/dL (8.5-10.1); Carbon Dioxide 28 mmol/L (21-32); Chloride 103 mmol/L (98-108); Estimated CRCL calculation 46 ml/min; Estimated Glomerular Filt Rate > 60; Glucose 128 mg/dL (70-99); Lipase 69 U/L (73-393); Osmolality Calculated 294 mOsm/kg (285-295); Potassium 4.4 mmol/L (3.5-5.1); Sodium 140 mmol/L (136-145); Total Protein 6.6 g/dL (6.4-8.2); Troponin I 7.1 ng/L (0.00-60.4)
--- NOTE | 2021-07-02 17:31 | ED.ABDPAIN ---
HPI - Abdominal Pain General Chief Complaint: Abdominal Pain Stated Complaint: Abd Pain Time Seen by Provider: 07/02/21 14:22 Source: patient and RN notes reviewed Mode of arrival: ambulatory Limitations: no limitations History of Present Illness MD elicited complaint: abdominal pain Onset (ago): day(s) (1) Pain Consistency: constant Location: suprapubic Severity: moderate Pain scale (0-10): 7 Quality: cramping, aching and dull Exacerbating factors: nothing Relieving factors: nothing Associated symptoms: nausea Related Data Home Medications Medication Instructions Recorded Confirmed metformin 1,000 mg PO QAM 03/15/19 07/02/21 metformin 500 mg PO QPM 03/15/19 07/02/21 duloxetine 60 mg PO DAILY 09/28/20 07/02/21 lovastatin 20 mg PO DAILY 09/28/20 07/02/21 omeprazole 20 mg PO BID 09/28/20 07/02/21 sitagliptin 100 mg PO DAILY 09/28/20 07/02/21 Spiriva Respimat 2 puff INHALATION DAILY 10/01/20 07/02/21 budesonide [Pulmicort] 0.5 mg INHALATION BID 10/01/20 07/02/21 Allergies Allergy/AdvReac Type Severity Reaction Status Date / Time No Known Allergies Allergy Unknown Verified 07/02/21 14:40 Review of Systems Review of Systems: All systems reviewed & are unremarkable except as noted in HPI and below PMFSH Past Medical History Medical History Abdominal wall hernia Aftercare following right knee joint replacement surgery Body mass index [BMI] 34.0-34.9, adult (08/03/15) Body mass index [BMI] 35.0-35.9, adult (09/27/15) Complications of gastric bypass surgery History of depression (Unknown) Left knee pain Obesity, Class I, BMI 30-34.9 (Unknown) Primary osteoarthritis of both knees Primary osteoarthritis of right knee Right knee pain Type 2 diabetes mellitus (Unknown) UTI (urinary tract infection) Surgical History Surgical History Gastric bypass status for obesity History of appendectomy History of cholecystectomy Hx of tonsillectomy Presence of right artificial knee joint Family History Family History Other Family history of arthritis Family history of malignant neoplasm Hypertension Social History Social History Smoking status: Never smoker Second hand tobacco smoke exposure: Yes (roommate smokes) Alcohol intake: never Substance use: never Substance use type: does not use Gender identity (if verbalized by the patient): Female Spiritual care concerns: No Exam Const: General: no acute distress and alert Nutritional Appearance: obese Orientation/consciousness: patient oriented x3 Limitations: no limitations HENMT: Head: normal to inspection Ears: external ears normal, TM's normal bilaterally and EAC's normal General nose exam: Normal external nose present and Normal nares present Face and sinus: normal facial exam Mouth: Yes lip normal and Yes moist mucous membranes Eyes: Conjunctivae: conjunctivae normal Pupils: Equal, round and reactive pupils present EOM: EOMs intact bilaterally Neck: Neck: normal visual inspection and no lymphadenopathy Chest: Chest palpation & inspection: normal inspection of the chest Resp: Effort & Inspection: normal respiratory effort Auscultation: clear to auscultation bilaterally Cardio: Rate: regular rate Rhythm: regular rhythm GI: GI Palp: Yes Soft to palpation and Yes Tenderness to palpation present (GI) (minimal eliza-umbilical tenderness) : General: Yes bladder normal to palpation (minimal suprapubic tenderness.) and Yes no CVA tenderness Back/Spine/Pelvis: Back: no CVA tenderness Skin: General skin exam: normal color Rashes: no rashes Neuro: General: patient oriented x3, moves all extremities, no meningeal signs, no focal motor deficits and CN's II-XI intact bilaterally Extrem: General: normal to inspection and
[2021-07-02] MEDS: cefTRIAXone 1 GM VIAL IM (18:16)
[2021-07-02 18:18] VITALS: BP 130/63; PULSE 67; RESP 16; TEMP 36.8; O2SAT 95
== END 2021-07-02 18:20 | disposition home or self-care (01) ==
PROVIDERS: Emergency Provider Emergency Medicine; PCP Family Medicine
DX: K43.9 Ventral hernia without obstruction or gangrene (principal); N39.0 Urinary tract infection, site not specified; R10.10 Upper abdominal pain, unspecified; E11.9 Type 2 diabetes mellitus without complications
CPT/HCPCS: 36415; 74177; 80053; 81001; 83605; 83690; 84484; 85025; 87086; 93005; 96372; 96374; 96375; 99284; C9113; J0696; J2405; Q9967

== ENCOUNTER 2021-08-09 08:47 | Outpatient (CLI) | payer MEDICARE, OTHER, SELFPAY ==
--- NOTE | ~2021-08-09 | US_ITS ---
EXAMINATION: US pelvic complete w TV DATE: 08/09/2021 09:15 INDICATION: Uterine fibroid. TECHNIQUE: Multiple transabdominal and transvaginal sonographic images of the pelvis were obtained. COMPARISON: CT abdomen and pelvis 07/02/2021 FINDINGS: TRANSABDOMINAL ULTRASOUND: The uterus measures 8.4 x 4.0 x 6.3 cm. There is no free fluid in the pelvis. TRANSVAGINAL ULTRASOUND: The endometrial complex measures 4 mm in thickness. There is a 5.8 cm subserosal fibroid on the left. The ovaries are not visualized. IMPRESSION: 1. 5.8 cm subserosal fibroid on the left. Reviewed, dictated and finalized at [facility].
== END 2021-08-09 08:48 | disposition home or self-care (01) ==
LOC: CHSIMG 08:48
PROVIDERS: PCP Family Medicine; Visit Provider Obstetrics & Gynecology
DX: N85.8 Other specified noninflammatory disorders of uterus (principal)
CPT/HCPCS: 76830; 76856

== ENCOUNTER 2021-08-27 17:08 | Emergency (ER) | payer MEDICARE, OTHER, SELFPAY ==
--- NOTE | ~2021-08-27 | CT_ITS ---
EXAMINATION: CT chest abdomen pelvis w con DATE: 08/27/2021 19:40 INDICATION: TECHNIQUE: Computed tomography (CT) of the chest abdomen and pelvis was performed following injection of 100 mL Omnipaque 300 intravenous contrast. Automated exposure control and iterative reconstructio n technique were employed. The dose-length product was 918.72 mGy-cm. COMPARISON: CT abdomen and pelvis 07/02/2021 FINDINGS: CHEST: Thoracic aorta: Unremarkable. Lung parenchyma and airways: Mild senescent change. Bibasilar scarring. Thoracic inlet, axillae and chest wall: Unremarkable. Mediastinum: No lymphadenopathy or mass. Heart and pericardium: No significant cardiomegaly. No pericardial effusion. Coronary artery calcifications: Moderate. Pleura: No mass or fluid. Abdomen and pelvis: Liver: No mass. Stable intrahepatic biliary duct dilatation. Biliary/Gallbladder: Gallbladder is absent. Stable extrahepatic biliary duct dilatation. Spleen: Normal. Pancreas: No mass or duct dilation. Adrenals:No mass. Kidneys: No stone or hydronephrosis. Stable right renal cysts and probable cysts. GI tract: Gastric bypass. Unobstructed wall herniations of large and small bowel through anterior abd ominal wall defects, stable. No small or large bowel dilation. Appendix not visualized. Diverticulosi s without diverticulitis. Fluid-filled colon. Mesentery/Peritoneum: No ascites, mass, or free air. Retroperitoneum: No mass. Pelvis: Enlarged uterus. Bladder wall thickening. Soft Tissues: Multiple ventral abdominal wall defects, containing bowel as described as well as fat. Inflammatory stranding and fluid in the subcutaneous fat of the lower anterior abdomen. Bones: No acute osseous finding. IMPRESSION: 1. Fluid-filled colon as can be seen with diarrheal illness. 2. Stable inflammation/infection of the subcutaneous fat of the lower anterior abdominal wall. 3. Multiple stable uncomplicated appearing ventral wall hernias, several of which contain bowel. No b owel obstruction. 4. Possible cystitis. Reviewed, dictated and finalized at location K. IMPRESSION: 1. Fluid-filled colon as can be seen with diarrheal illness. 2. Stable inflammation/infection of the subcutaneous fat of the lower anterior abdominal wall. 3. Multiple stable uncomplicated appearing ventral wall hernias, several of whi ch contain bowel. No bowel obstruction. 4. Possible cystitis.
[2021-08-27 17:29] VITALS: BP 178/84; PULSE 86; RESP 16; TEMP 36.6; O2SAT 98
--- NOTE | 2021-08-27 17:33 | ED.ABDPAIN ---
HPI - Abdominal Pain General Chief Complaint: Abdominal Pain Stated Complaint: AMB Time Seen by Provider: 08/27/21 17:33 Source: patient History of Present Illness HPI narrative: 75-year-old female with a history of hypertension, diabetes mellitus, CVA/TIA, abdominal wall hernia with strangulation status post surgery last year, recurrent constipation status post colonoscopy PICC evacuation on 07/19/2021 presents the ER with -- acute onset abdominal pain which started around 4:00 p.m. The patient called the EMS and by the time they reached her house the patient had a large BM and resolution of abdominal pain. When she reached the ER her abdominal pain resolved. No fever or chills. No vomiting. MD elicited complaint: abdominal pain Pertinent past history: constipation Onset (ago): hour(s) ( Started 1-1/2 hours ago) Pain Consistency: now resolved Location: periumbilical Severity: moderate Quality: cramping Radiation: none Migration to: no migration Exacerbating factors: nothing Relieving factors: other ( resolved a large watery bowel movement) Associated symptoms: denies other symptoms and constipation Related Data Patient : No Home Medications Medication Instructions Recorded Confirmed metformin 1,000 mg PO QAM 03/15/19 08/27/21 metformin 500 mg PO QPM 03/15/19 08/27/21 duloxetine 60 mg PO DAILY 09/28/20 08/27/21 lovastatin 20 mg PO DAILY 09/28/20 08/27/21 sitagliptin 100 mg PO DAILY 09/28/20 08/27/21 Spiriva Respimat 2 puff INHALATION DAILY 10/01/20 08/27/21 budesonide [Pulmicort] 0.5 mg INHALATION BID 10/01/20 08/27/21 esomeprazole magnesium 20 mg PO BID 08/27/21 08/27/21 trazodone 200 mg PO HS 08/27/21 08/27/21 Allergies Allergy/AdvReac Type Severity Reaction Status Date / Time lisinopril AdvReac Cough Verified 08/27/21 17:25 Review of Systems Review of Systems: All systems reviewed & are unremarkable except as noted in HPI and below Constitutional: Constitutional: Reports as per HPI and Reports no additional constitutional complaints Eyes: Eyes: Reports as per HPI and Reports no additional eye complaints ENT: Reports system reviewed and no additional complaints, except as documented and Reports as per HPI Cardiovascular: Cardiovascular: Reports as per HPI and Reports no additional cardiovascular complaints Respiratory: Respiratory: Reports as per HPI, Reports no additional respiratory complaints, Reports cough and Reports dyspnea Comments: chronic cough and shortness of breath. The patient is a nonsmoker. Gastrointestinal: Gastrointestinal: Reports as per HPI, Reports no additional gastrointestinal complaints and Reports abdominal pain Genitourinary: Genitourinary: Reports no additional female genitourinary complaints and Reports as per HPI Musculoskeletal: Musculoskeletal: Reports no additional musculoskeletal complaints and Reports as per HPI Integumentary/Breasts: Skin/Breast: Reports system reviewed and no additional complaints, except as docu and Reports as per HPI Neurologic: Reports system reviewed and no additional complaints, except as documented and Reports as per HPI Psychiatric: Psychiatric: Reports no additional psychiatric complaints and Reports as per HPI Endocrine: Endocrine: Reports no additional endocrine complaints and Reports as per HPI Allergic/Immunologic: Allergic/Immunologic: Reports no additional allergic/immunologic complaints and Reports as per HPI [facility] Past Medical History Medical History Abdominal wall hernia Aftercare following right knee joint replacement surgery Anxiety Asthma Body mass index [BMI] 34.0-34.9, adult (08/03/15) Body mass index [BMI] 35.0-35.9, adult (09/27/15) Complications of gastric bypass surgery History of depression (Unknown) Left knee pain Obesity, Class I, BMI 30-34.9 (Unknown) Primary osteoarthritis of both knees Primary osteoarthritis of right knee Right knee pain Type 2 [place]
[2021-08-27 18:03] LABS: Basophils Absolute Auto 0.03 K/mm3 (0.00-0.10); Basophils Percent Auto 0.2 % (0.0-1.0); Eosinophils Percent Auto 1.9 % (1.0-6.0); Hematocrit 33.5 % (35.0-42.0); Hemoglobin 10.5 g/dL (11.7-13.8); Immature Granulocyte Absolute 0.09 K/mm3 (0.00-0.00); Immature Granulocyte Percent A 0.6 % (0.0-0.0); Lymphocytes Absolute Auto 2.15 K/mm3 (1.10-4.50); Lymphocytes Percent Auto 13.3 % (18.0-42.0); Mean Corpuscular HGB Conc 31.3 g/dL (32.0-36.0); Mean Corpuscular Hemoglobin 26.6 pg (27.0-31.0); Mean Platelet Volume 11.3 fl (9.2-11.8); Monocytes Percent Auto 5.6 % (2.0-11.0); Neutrophils Absolute Auto 12.7 K/mm3 (1.7-7.2); Neutrophils Percent Auto 78.4 % (50.0-70.0); Platelet Count Result 266 K/mm3 (150-420); Red Blood Count 3.94 M/mm3 (4.20-5.40); Red Cell Distribution Width 15.6 % (11.6-14.4); White Blood Count 16.2 K/mm3 (4.8-10.8)
[2021-08-27 18:24] LABS: Alanine Aminotransferase 15 U/L (14-59); Albumin Level 3.6 g/dL (3.4-5.0); Alkaline Phosphatase 48 U/L (46-116); Anion Gap 10 mmol/L (8-16); Aspartate Amino Transferase 10 U/L (15-37); Bilirubin,Total 0.2 mg/dL (0.00-1.00); Blood Urea Nitrogen 22 mg/dL (7-18); Calcium 8.9 mg/dL (8.5-10.1); Carbon Dioxide 23 mmol/L (21-32); Chloride 105 mmol/L (98-108); Estimated Glomerular Filt Rate > 60; Glucose 131 mg/dL (70-99); Lipase 373 U/L (73-393); Osmolality Calculated 291 mOsm/kg (285-295); Potassium 3.8 mmol/L (3.5-5.1); Sodium 138 mmol/L (136-145); Total Protein 6.7 g/dL (6.4-8.2)
[2021-08-27 18:26] LABS: Add Urine Microscopic? YES; Appearance Urine Clear (Clear); Bilirubin Urine Negative (Negative); Blood Urine Negative (Negative); Color Urine Yellow (Yellow); Glucose Urine UA Negative (Negative); Ketones Urine Negative (Negative); Leukocyte Esterase Ur Trace (Negative); Nitrate Urine Negative (Negative); Protein Urine Negative (Negative); Specific Grav Ur >= 1.030 (1.010-1.020); Urobilinogen Urine 0.2 mg/dL (0.2-1.0)
[2021-08-27 18:27] LABS: Lactic Acid Reflex 1.8 mmol/L (0.4-2.0)
[2021-08-27 18:31] LABS: Bacteria Urine Trace /hpf; RBC Urine 0-2 /hpf (0-2); Squamous Epithelial Cell Urine Rare /hpf (Few)
[2021-08-27] MEDS: LACTATED RINGERS 1,000 ML 999 ML IV CONT (19:57)
[2021-08-27 20:59] VITALS: BP 124/72; PULSE 71; RESP 14; O2SAT 98
[2021-08-27] MEDS: AMOXICILLIN/CLAVULANATE K 875-125 MG TAB 1 TABLET PO (21:45)
--- NOTE | 2021-08-27 21:54 | PC.NURSE ---
[address] AT THIS TIME. WILL CONTINUE TO MONITOR.
--- NOTE | 2021-08-27 21:55 | PC.NURSE ---
2024 PT HAS IVF INFUSING ORDERED WITHOUT DIFFICULTY. PT IS AWAITING CT RESULTS AT THIS TIME. NAD NOTED. LIGHTS ARE OFF, WARM BLANKET PROVIDED. WILL CONTINUE TO MONITOR.
--- NOTE | 2021-08-27 21:56 | PC.NURSE ---
2139 PT REPORTS SHE DOES NOT HAVE A RIDE HOME, CAREGIVER IS AT HOME AND PHONE IS NOT WORKING. ATTEMPTED TO CALL MULTIPLE TIMES. CALLED [facility] TO SEE IF THEY WOULD GO TO THE HOUSE, CURRENTLY NO ONE IS AVAILABLE. PT DC TO WAITING AREA. WILL ATTEMPT TO CALL AGAIN.
== END 2021-08-27 21:50 | disposition home or self-care (01) ==
PROVIDERS: Emergency Provider Internal Medicine Critical Care Medicine; PCP Family Medicine
DX: M79.3 Panniculitis, unspecified (principal); K43.9 Ventral hernia without obstruction or gangrene; N30.00 Acute cystitis without hematuria; E11.9 Type 2 diabetes mellitus without complications
CPT/HCPCS: 36415; 71260; 74177; 80053; 81001; 83605; 83690; 84484; 85025; 96360; 99284; A9270; J7120; Q9967

== ENCOUNTER 2022-04-16 11:58 | Emergency (ER) | payer MEDICARE, OTHER, SELFPAY ==
--- NOTE | ~2022-04-16 | CT_ITS ---
CT of the Abdomen and Pelvis: Indication: Abdominal pain Technique: 2.5 mm axial scans were obtained through the abdomen and pelvis following intravenous adm inistration of 100 cc of Omnipaque 350. Dose reduction technique was used on this scan by utilizing a utomated exposure control and iterative reconstruction technique. The dose-length product (DLP) was 8 91.80 mGy-cm. Comparison: 08/27/2021 Findings: Scans through the lung bases are unremarkable. Diffuse intrahepatic and extra hepatic biliary dilatation is present, similar to mildly progressed fr om prior exam. No obstructing mass evident. Gallbladder absent. The spleen, pancreas, gallbladder, ad renals and left kidney are within normal limits. Stable probable mildly complex right renal cystic ma ss. No evidence of aortic aneurysm. No lymphadenopathy. No bowel obstruction or bowel wall thickening. Small ventral fat-containing hernia is noted. Small nina wel loops are mildly distended and fluid-filled. Images through the pelvis were performed. Stable left-sided presumed uterine fibroid. Urinary bladder unremarkable. No ascites. Impression: Mildly distended, fluid-filled small bowel loops. Correlate for possible diarrheal illness. No acute abnormality seen otherwise. Stable intrahepatic and extra hepatic biliary dilatation, without obstructing mass. Small ventral fat-containing hernias. Uterine fibroid. Reviewed, dictated and finalized at location M. ISER Impression: Mildly distended, fluid-filled small bowel loops. Correlate for possible diarrh eal illness. No acute abnormality seen otherwise. Stable intrahepatic and extra hepatic biliary dilatation, without obstructing m ass. Small ventral fat-containing hernias. Uterine fibroid.
[2022-04-16 12:13] VITALS: BP 155/92; PULSE 95; RESP 20; TEMP 36.8; O2SAT 99
[2022-04-16] MEDS: MORPHINE SULFATE (*CRX) 4 MG/ML INJ IV PUSH (12:31)
--- NOTE | 2022-04-16 12:37 | ED.GENADULT ---
HPI - General Adult General Chief complaint: Abdominal Pain Stated complaint: severe abd pain Time Seen by Provider: 04/16/22 12:08 History of Present Illness HPI narrative: Gladis presented to the ED with abdominal pain that started an hour before coming in. It is a constant aching pain that came on insidiously. It does not radiate and there is no diarrhea, nausea or vomiting. She has had previous gastric surgery, appendectomy and cholecystectomy. There are no fevers or chills. Related Data Home Medications Medication Instructions Recorded Confirmed metformin 1,000 mg tablet 1,000 mg PO QAM 03/15/19 04/16/22 metformin 500 mg tablet 500 mg PO QPM 03/15/19 04/16/22 duloxetine 60 mg capsule,delayed 60 mg PO DAILY 09/28/20 04/16/22 release lovastatin 20 mg tablet 20 mg PO DAILY 09/28/20 04/16/22 sitagliptin phosphate 100 mg tablet 100 mg PO DAILY 09/28/20 04/16/22 budesonide 0.5 mg/2 mL suspension 0.5 mg inhalation BID 10/01/20 04/16/22 for nebulization (Pulmicort) tiotropium bromide 2.5 2 puff inhalation DAILY 10/01/20 04/16/22 mcg/actuation mist for inhalation (Spiriva Respimat) esomeprazole magnesium 20 mg 20 mg PO BID 08/27/21 04/16/22 capsule,delayed release (Nexium) trazodone 100 mg tablet 200 mg PO HS 08/27/21 04/16/22 Allergies Allergy/AdvReac Type Severity Reaction Status Date / Time lisinopril AdvReac Cough Verified 04/16/22 12:18 Review of Systems Review of Systems: All systems reviewed & are unremarkable except as noted in HPI and below [facility] Past Medical History Medical History Abdominal wall hernia Aftercare following right knee joint replacement surgery Anxiety Asthma Body mass index [BMI] 34.0-34.9, adult (08/03/15) Body mass index [BMI] 35.0-35.9, adult (09/27/15) Complications of gastric bypass surgery History of depression (Unknown) Left knee pain Obesity, Class I, BMI 30-34.9 (Unknown) Primary osteoarthritis of both knees Primary osteoarthritis of right knee Right knee pain Type 2 diabetes mellitus (Unknown) UTI (urinary tract infection) Surgical History Surgical History Gastric bypass status for obesity History of appendectomy History of cholecystectomy Hx of tonsillectomy Presence of right artificial knee joint Family History Family History Other Family history of arthritis Family history of malignant neoplasm Hypertension Social History Social History Smoking status: Never smoker Second hand tobacco smoke exposure: Yes (roommate smokes) Alcohol intake: never Substance use: never Substance use type: does not use Gender identity (if verbalized by the patient): Female Spiritual care concerns: No Exam Const: General: healthy appearing, no acute distress and alert Nutritional Appearance: well nourished Orientation/consciousness: patient oriented x3 Limitations: no limitations and No altered mental status HENMT: Head: normal to inspection Ears: external ears normal Face/Nose/Sinus: Normal external nose present Eyes: Conjunctivae: conjunctivae normal Pupils: Equal, round and reactive pupils present Neck: Neck: normal visual inspection Chest: Chest palpation & inspection: normal inspection of the chest Resp: Effort & Inspection: normal respiratory effort Auscultation: clear to auscultation bilaterally Cardio: Rate: regular rate Rhythm: regular rhythm GI: Inspection: distended GI Palp: Yes Tenderness to palpation present (GI), Yes Guarding due to palpation present (GI) and No Rebound tenderness present Skin: General skin exam: normal color Rashes: no rashes Wounds: no wounds Neuro: General: patient oriented x3 and moves all extremities Cranial nerves: Yes Nystagmus not present Speech: normal speech Extrem: General
[2022-04-16 12:50] LABS: Basophils Absolute Auto 0.02 K/mm3 (0.00-0.10); Basophils Percent Auto 0.2 % (0.0-1.0); Eosinophils Absolute Auto 0.15 K/mm3 (0.02-0.50); Eosinophils Percent Auto 1.2 % (1.0-6.0); Hematocrit 37.3 % (35.0-42.0); Hemoglobin 11.9 g/dL (11.7-13.8); Immature Granulocyte Absolute 0.05 K/mm3 (0.00-0.00); Immature Granulocyte Percent A 0.4 % (0.0-0.0); Lymphocytes Absolute Auto 2.33 K/mm3 (1.10-4.50); Lymphocytes Percent Auto 18.1 % (18.0-42.0); Mean Corpuscular HGB Conc 31.9 g/dL (32.0-36.0); Mean Corpuscular Hemoglobin 27.3 pg (27.0-31.0); Mean Corpuscular Volume 85.6 fL (78.0-102.0); Mean Platelet Volume 11.1 fl (9.2-11.8); Monocytes Absolute Auto 0.63 K/mm3 (0.10-0.90); Monocytes Percent Auto 4.9 % (2.0-11.0); Neutrophils Absolute Auto 9.7 K/mm3 (1.7-7.2); Neutrophils Percent Auto 75.2 % (50.0-70.0); Platelet Count Result 295 K/mm3 (150-420); Red Blood Count 4.36 M/mm3 (4.20-5.40); Red Cell Distribution Width 15.4 % (11.6-14.4); White Blood Count 12.9 K/mm3 (4.8-10.8)
[2022-04-16 12:50] LABS: Add Urine Microscopic? YES; Appearance Urine Clear (Clear); Bilirubin Urine Negative (Negative); Blood Urine Negative (Negative); Color Urine Yellow (Yellow); Glucose Urine UA Negative (Negative); Ketones Urine Trace (Negative); Leukocyte Esterase Ur Trace LEU/UL (Negative); Nitrate Urine Negative (Negative); Protein Urine Negative (Negative); Urobilinogen Urine 0.2 mg/dL (0.2-1.0)
[2022-04-16 12:55] LABS: Bacteria Urine Trace /hpf; RBC Urine None seen /hpf (0-2); Squamous Epithelial Cell Urine Occasional /hpf (Few); WBC Urine 0-3 /hpf (0-3)
[2022-04-16 13:02] LABS: Prothrombin Time 11.2 Seconds (9.50-12.10)
[2022-04-16 13:08] LABS: Lactic Acid Reflex 1.6 mmol/L (0.4-2.0)
[2022-04-16 13:14] LABS: Alanine Aminotransferase 20 U/L (14-59); Albumin Level 4.1 g/dL (3.4-5.0); Alkaline Phosphatase 47 U/L (46-116); Anion Gap 8 mmol/L (8-16); Aspartate Amino Transferase 13 U/L (15-37); Bilirubin,Total 0.3 mg/dL (0.00-1.00); Blood Urea Nitrogen 21 mg/dL (7-18); Calcium 9.2 mg/dL (8.5-10.1); Carbon Dioxide 26 mmol/L (21-32); Chloride 100 mmol/L (98-108); Estimated CRCL calculation 60 ml/min; Estimated Glomerular Filt Rate > 60; Glucose 120 mg/dL (70-99); Lipase 39 U/L (16-77); Osmolality Calculated 282 mOsm/kg (285-295); Potassium 4.6 mmol/L (3.5-5.1); Sodium 134 mmol/L (136-145); Total Protein 7.5 g/dL (6.4-8.2)
[2022-04-16 13:18] LABS: CRP < 0.5 mg/dL (0.0-0.9)
[2022-04-16] MEDS: MAG HYDROX/ALUMINUM HYD/SIMETH 30 ML, PHENobarb/HYOSCY/ATROPINE/SCOP 32.4 MG, LIDOCAINE... PO (13:57)
== END 2022-04-16 15:05 | disposition home or self-care (01) ==
PROVIDERS: Emergency Provider Family Medicine; PCP Family Medicine
DX: R10.9 Unspecified abdominal pain (principal); F41.9 Anxiety disorder, unspecified; J45.909 Unspecified asthma, uncomplicated; E11.9 Type 2 diabetes mellitus without complications; F32.A Depression, unspecified; Z98.84 Bariatric surgery status; Z79.84 Long term (current) use of oral hypoglycemic drugs; Z79.51 Long term (current) use of inhaled steroids; E66.01 Morbid (severe) obesity due to excess calories; Z68.42 Body mass index [BMI] 45.0-49.9, adult
CPT/HCPCS: 36415; 74177; 80053; 81001; 83605; 83690; 85025; 85610; 86140; 96374; 99284; A9270; J2270; Q9967

== ENCOUNTER 2022-09-27 06:02 | Emergency (ER) | payer MEDICARE, OTHER, SELFPAY ==
--- NOTE | 2022-09-27 06:20 | ECG_ITS ---
Measurements Intervals [place] Rate: 72 P: 113 MS: 150 QRS: 4 QRSD: 97 T: 49 QT: 384 QTc: 420 Interpretive Statements SINUS RHYTHM BASELINE ARTIFACT LOW QRS VOLTAGE IN PRECORDIAL LEADS BORDERLINE ECG COMPARED TO ECG 07/02/2021 14:10:59 NO SIGNIFICANT CHANGES Electronically Signed On 09-29-2022 17:23:25 CDT by Douglas Bradshaw M.D.
[2022-09-27 06:23] VITALS: BP 155/99; PULSE 89; RESP 22; TEMP 36.2; O2SAT 95
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
--- NOTE | 2022-09-27 06:36 | PC.NURSE ---
Per Md Ruth, Contact Adult Protective Services ( ) and [facility] for evaluation and available resources for patient.
[2022-09-27 06:43] LABS: Basophils Absolute Auto 0.02 K/mm3 (0.00-0.10); Basophils Percent Auto 0.3 % (0.0-1.0); Eosinophils Percent Auto 1.6 % (1.0-6.0); Hematocrit 36.9 % (35.0-42.0); Hemoglobin 11.8 g/dL (11.7-13.8); Immature Granulocyte Absolute 0.02 K/mm3 (0.00-0.00); Immature Granulocyte Percent A 0.3 % (0.0-0.0); Lymphocytes Absolute Auto 1.35 K/mm3 (1.10-4.50); Lymphocytes Percent Auto 21.2 % (18.0-42.0); Mean Corpuscular Hemoglobin 27.8 pg (27.0-31.0); Mean Platelet Volume 10.6 fl (9.2-11.8); Monocytes Absolute Auto 0.25 K/mm3 (0.10-0.90); Monocytes Percent Auto 3.9 % (2.0-11.0); Neutrophils Absolute Auto 4.6 K/mm3 (1.7-7.2); Neutrophils Percent Auto 72.7 % (50.0-70.0); Platelet Count Result 255 K/mm3 (150-420); Red Blood Count 4.24 M/mm3 (4.20-5.40); Red Cell Distribution Width 14.7 % (11.6-14.4); White Blood Count 6.4 K/mm3 (4.8-10.8)
--- NOTE | 2022-09-27 06:46 | PC.NURSE ---
pt states that she does not have her phone with her at this time
--- NOTE | 2022-09-27 06:57 | PC.NURSE ---
Adult Protective Services informed this staff member that they we followup with the hospital and the pt in one or two days.
--- NOTE | 2022-09-27 06:59 | PC.NURSE ---
Vaihsali at [facility] returned page to inform us that we need to contact Adult Protective Services which we informed them. They are going to going to setup with a counselor for the pt and will contact [facility] Protective [facility] to start their investigation. [facility] will call back when they have an appointment with a counselor.
[2022-09-27] MEDS: ACETAMINOPHEN 500 MG TABLET 1000 MG PO (07:01)
[2022-09-27 07:09] LABS: Appearance Urine Clear (Clear); Bilirubin Urine Negative (Negative); Blood Urine Negative (Negative); Color Urine Light Yellow (Yellow); Glucose Urine UA Negative (Negative); Ketones Urine 1+ (Negative); Leukocyte Esterase Ur Trace LEU/UL (Negative); Nitrate Urine Negative (Negative); Protein Urine Negative (Negative); Urobilinogen Urine 0.2 mg/dL (0.2-1.0); pH Urine 6.5 (5.0-8.0)
[2022-09-27 07:11] LABS: Acetaminophen < 2 ug/mL (10-30); Alanine Aminotransferase 15 U/L (14-59); Albumin Level 3.7 g/dL (3.4-5.0); Alkaline Phosphatase 44 U/L (46-116); Anion Gap 11 mmol/L (8-16); Aspartate Amino Transferase 11 U/L (15-37); Bilirubin,Total 0.6 mg/dL (0.00-1.00); Blood Urea Nitrogen 11 mg/dL (7-18); Carbon Dioxide 26 mmol/L (21-32); Chloride 100 mmol/L (98-108); Creatine Kinase 23 U/L (26-192); Estimated CRCL calculation 61 ml/min; Estimated Glomerular Filt Rate > 60; Ethanol < 3 mg/dL (0-6); Glucose 161 mg/dL (70-99); Magnesium 1.5 mg/dL (1.8-2.4); Osmolality Calculated 286 mOsm/kg (285-295); Salicylate 0.6 mg/dL (2.8-20.0); Sodium 137 mmol/L (136-145); Total Protein 6.6 g/dL (6.4-8.2)
[2022-09-27 07:12] LABS: Thyroid Stimulating Hormone Reflex 1.41 u/IU/mL (0.36-3.74)
[2022-09-27 07:15] LABS: Add Urine Microscopic? YES; Bacteria Urine Rare /hpf; RBC Urine None seen /hpf (0-2); Squamous Epithelial Cell Urine Rare /hpf (Few); WBC Urine 0-3 /hpf (0-3)
[2022-09-27 07:15] LABS: Amphetamine Screen Urine Negative (Negative); Barbiturate Screen Urine Negative (Negative); Benzodiazepines Screen Urine Negative (Negative); Cannabinoid Screen Urine Negative (Negative); Cocaine Screen Urine Negative (Negative); Methadone Screen Urine Negative (Negative); Opiate Screen Urine Negative (Negative); Phencyclidine Screen Urine Negative (Negative)
[2022-09-27 07:21] LABS: Influenza A QL RT-PCR Negative (Negative); Influenza B QL RT-PCR Negative (Negative); SARS-CoV-2 RNA PCR Negative (Negative)
[2022-09-27 07:26] LABS: RSV RNA, RT-PCR Negative (Negative)
--- NOTE | 2022-09-27 07:46 | PC.NURSE ---
[facility] called and sent referral for their adult protective services, they do not work on the weekends, will contact patient on Thursday if patient qualifies for their services.
[2022-09-27 08:00] VITALS: BP 152/95; PULSE 85; RESP 17; TEMP 36.6; O2SAT 96
== END 2022-09-27 08:00 | disposition home or self-care (01) ==
PROVIDERS: Emergency Medicine; Emergency Provider Emergency Medicine; PCP Family Medicine
DX: N39.0 Urinary tract infection, site not specified (principal); E11.9 Type 2 diabetes mellitus without complications; E78.5 Hyperlipidemia, unspecified; F41.9 Anxiety disorder, unspecified; Z20.822 Contact with and (suspected) exposure to COVID-19; Z79.84 Long term (current) use of oral hypoglycemic drugs; Z79.899 Other long term (current) drug therapy
CPT/HCPCS: 36415; 80053; 80307; 81001; 82550; 83735; 84443; 84484; 85025; 87637; 93005; 99284

== ENCOUNTER 2023-07-13 07:26 | Emergency (ER) | payer MEDICARE, OTHER, SELFPAY ==
[2023-07-13] VITALS (22 sets, daily range): BP systolic 100–130; BP diastolic 52–107; PULSE 65–93; RESP 12–22; TEMP 36.8; O2SAT 93–98
--- NOTE | ~2023-07-13 | XR_ITS ---
EXAMINATION: XR chest 1V portable DATE: 07/13/2023 08:06 INDICATION: Weakness. Fatigue. TECHNIQUE: A single frontal view of the chest was obtained. COMPARISON: Chest single view 10/09/2020, CT abdomen and pelvis 04/16/2022 FINDINGS: There is no pneumonia, pleural effusion, or pneumothorax. The heart size is normal. IMPRESSION: 1. No acute cardiopulmonary disease. Reviewed, dictated and finalized at location E.
--- NOTE | 2023-07-13 07:37 | ECG_ITS ---
Measurements Intervals [place] Rate: 71 P: 82 [place]: 146 QRS: 79 QRSD: 93 T: 64 QT: 402 QTc: 439 Interpretive Statements SINUS RHYTHM NONSPECIFIC ST-T WAVE ABNORMALITY- DIFFUSE LEADS BASELINE WANDER- I, II, III, AVF BORDERLINE ECG COMPARED TO ECG 09/27/2022 06:29:18 ST-T WAVE ABNORMALITY NOW PRESENT Electronically Signed On 07-13-2023 8:03:38 CDT by Pineda Sands D.O.
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
[2023-07-13 08:04] LABS: Glucose Point of Care 117 mg/dl (65-105)
[2023-07-13 08:04] LABS: Basophils Absolute Auto 0.02 K/mm3 (0.00-0.10); Basophils Percent Auto 0.2 % (0.0-1.0); Eosinophils Absolute Auto 0.22 K/mm3 (0.02-0.50); Eosinophils Percent Auto 2.5 % (1.0-6.0); Hematocrit 37.1 % (35.0-42.0); Hemoglobin 11.7 g/dL (11.7-13.8); Immature Granulocyte Absolute 0.05 K/mm3 (0.00-0.00); Immature Granulocyte Percent A 0.6 % (0.0-0.0); Lymphocytes Absolute Auto 1.87 K/mm3 (1.10-4.50); Lymphocytes Percent Auto 21.6 % (18.0-42.0); Mean Corpuscular HGB Conc 31.5 g/dL (32-36); Mean Corpuscular Hemoglobin 26.6 pg (27.0-31.0); Mean Corpuscular Volume 84.3 fL (78.0-102.0); Mean Platelet Volume 10.9 fl (9.2-11.8); Monocytes Absolute Auto 0.55 K/mm3 (0.10-0.90); Monocytes Percent Auto 6.4 % (2.0-11.0); Neutrophils Absolute Auto 5.94 K/mm3 (1.70-7.20); Neutrophils Percent Auto 68.7 % (50.0-70.0); Platelet Count Result 301 K/mm3 (150-420); Red Cell Distribution Width 14.9 % (11.6-14.4); White Blood Count 8.7 K/mm3 (4.8-10.8)
[2023-07-13 08:19] LABS: INR 1.1; Partial Thromboplastin Time 21.6 Sec (23.9-30.70); Prothrombin Time 11.5 Seconds (9.50-12.1)
[2023-07-13 08:33] LABS: Alanine Aminotransferase 11 U/L (14-59); Albumin Level 3.9 g/dL (3.4-5.0); Alkaline Phosphatase 53 U/L (46-116); Anion Gap 11 mmol/L (8-16); Aspartate Amino Transferase 10 U/L (15-37); Bilirubin,Total 0.6 mg/dL (0.00-1.00); Blood Urea Nitrogen 18 mg/dL (7-18); Calcium 9.4 mg/dL (8.5-10.1); Carbon Dioxide 26 mmol/L (21-32); Chloride 100 mmol/L (98-108); Estimated CRCL calculation 47 ml/min; Estimated Glomerular Filt Rate 59; Glucose 130 mg/dL (70-99); Lipase 26 U/L (16-77); Magnesium 1.8 mg/dL (1.8-2.4); NT Pro B Type Natriuretic Pept 431 pg/mL (0-450); Osmolality Calculated 287 mOsm/kg (285-295); Phosphorus 4.2 mg/dL (2.6-4.7); Potassium 3.9 mmol/L (3.5-5.1); Sodium 137 mmol/L (136-145); Total Protein 6.9 g/dL (6.4-8.2); Troponin I 4.1 ng/L (0.00-60.4)
[2023-07-13 08:35] LABS: Thyroid Stimulating Hormone Reflex 1.08 u/IU/mL (0.36-3.74)
[2023-07-13 08:39] LABS: Lactic Acid Reflex 2.2 mmol/L (0.4-2.0)
[2023-07-13] MEDS: SODIUM CHLORIDE 0.9% IV 1,000 ML 999 ML IV CONT (08:41)
--- NOTE | 2023-07-13 08:42 | PC.NURSE ---
breakfast provided to pt. ate small pancake.
[2023-07-13 08:50] LABS: Influenza A QL RT-PCR Negative (Negative); Influenza B QL RT-PCR Negative (Negative); RSV RNA, RT-PCR Negative (Negative); SARS-CoV-2 RNA PCR Negative (Negative)
--- NOTE | 2023-07-13 09:23 | PC.NURSE ---
0805 urine taken to lab,
[2023-07-13 09:37] LABS: Appearance Urine Clear (Clear); Bilirubin Urine Negative (Negative); Blood Urine Negative (Negative); Color Urine Dark Yellow (Yellow); Glucose Urine UA Negative (Negative); Ketones Urine Trace (Negative); Leukocyte Esterase Ur Negative LEU/UL (Negative); Nitrate Urine Negative (Negative); Protein Urine Negative (Negative); Specific Grav Ur 1.015 (1.010-1.020); Urobilinogen Urine 0.2 mg/dL (0.2-1.0)
[2023-07-13 09:49] LABS: Add Urine Microscopic? YES; RBC Urine None seen /hpf (0-2); WBC Urine 0-3 /hpf (0-3)
[2023-07-13 09:51] LABS: Squamous Epithelial Cell Urine Occasional /hpf (Few)
--- NOTE | 2023-07-13 10:15 | PC.NURSE ---
1010 pt dressed, ambulated in hallway. denies dizziness or lightheadedness with ambulation. called for friend to pick up attendant. awaiting arrival
[2023-07-13 11:02] LABS: Reflex Lactic Acid Yes or No Add Lactic
== END 2023-07-13 10:12 | disposition home or self-care (01) ==
PROVIDERS: Emergency Provider Emergency Medicine; PCP Family Medicine
DX: R53.1 Weakness (principal); F32.A Depression, unspecified; J44.9 Chronic obstructive pulmonary disease, unspecified; E11.9 Type 2 diabetes mellitus without complications; F41.9 Anxiety disorder, unspecified; E66.9 Obesity, unspecified; Z68.31 Body mass index [BMI] 31.0-31.9, adult; Z98.84 Bariatric surgery status; Z79.84 Long term (current) use of oral hypoglycemic drugs; Z79.51 Long term (current) use of inhaled steroids; Z20.822 Contact with and (suspected) exposure to COVID-19
CPT/HCPCS: 36415; 71045; 80053; 81001; 82948; 83605; 83690; 83735; 83880; 84100; 84443; 84484; 85025; 85610; 85730; 87637; 93005; 96360; 99284; J7030

== ENCOUNTER 2023-11-24 11:58 | Emergency (ER) | payer MEDICARE, OTHER, SELFPAY ==
[2023-11-24 12:00] VITALS: BP 175/113; PULSE 93; RESP 22; TEMP 36.3; O2SAT 99
--- NOTE | 2023-11-24 12:28 | ED.ANXIETY ---
HPI - Anxiety General Chief Complaint: Anxiety Stated Complaint: fall Source: patient Mode of arrival: ambulatory Limitations: no limitations History of Present Illness HPI narrative: Patient is a 78-year-old female having social stressors and came to the ER for any advice. She is having long-term anxiety and depression and home situations. She is not suicidal or homicidal. She is having stress secondary to her home being in bad shape as the landlord has not fix anything per her history. She has lots of bugs at her house. MD complaint: anxiety Onset (ago): year(s) Symptoms: other ( Anxious) Severity: mild Quality: constant Place: home History of similar episodes: Yes Provoking factors: none known Relieving factors: nothing Exacerbating factors: other ( bugs and insects at the house as well as disarray of her house) Associated symptoms: denies other symptoms Related Data Home Medications Medication Instructions Recorded Confirmed metformin 1,000 mg tablet 1,000 mg PO QAM 03/15/19 07/13/23 duloxetine 60 mg capsule,delayed 60 mg PO DAILY 09/28/20 07/13/23 release lovastatin 20 mg tablet 20 mg PO DAILY 09/28/20 07/13/23 budesonide 0.5 mg/2 mL suspension 0.5 mg inhalation BID 10/01/20 07/13/23 for nebulization (Pulmicort) tiotropium bromide 2.5 2 puff inhalation DAILY 10/01/20 07/13/23 mcg/actuation mist for inhalation (Spiriva Respimat) esomeprazole magnesium 20 mg 20 mg PO BID 08/27/21 07/13/23 capsule,delayed release (Nexium) trazodone 100 mg tablet 200 mg PO HS 08/27/21 07/13/23 quetiapine 100 mg PO DAILY 07/13/23 07/13/23 Allergies Allergy/AdvReac Type Severity Reaction Status Date / Time lisinopril AdvReac Cough Verified 11/24/23 12:03 Review of Systems Review of Systems: All systems reviewed & are unremarkable except as noted in HPI and below Constitutional: Constitutional: Reports no additional constitutional complaints Eyes: Eyes: Reports no additional eye complaints ENT: Reports system reviewed and no additional complaints, except as documented Cardiovascular: Cardiovascular: Reports no additional cardiovascular complaints Respiratory: Respiratory: Reports no additional respiratory complaints Gastrointestinal: Gastrointestinal: Reports no additional gastrointestinal complaints Genitourinary: Genitourinary: Reports no additional female genitourinary complaints Musculoskeletal: Musculoskeletal: Reports no additional musculoskeletal complaints Integumentary/Breasts: Skin/Breast: Reports system reviewed and no additional complaints, except as docu Neurologic: Reports system reviewed and no additional complaints, except as documented Psychiatric: Psychiatric: Reports no additional psychiatric complaints Endocrine: Endocrine: Reports no additional endocrine complaints Hematologic/Lymphatic: Hematologic/Lymphatic: Reports no additional hematologic/lymphatic complaints Allergic/Immunologic: Allergic/Immunologic: Reports no additional allergic/immunologic complaints PMFSH Past Medical History Medical History Abdominal wall hernia Aftercare following right knee joint replacement surgery Anxiety Asthma Body mass index [BMI] 34.0-34.9, adult (08/03/15) Body mass index [BMI] 35.0-35.9, adult (09/27/15) Complications of gastric bypass surgery History of depression (Unknown) Left knee pain Obesity, Class I, BMI 30-34.9 (Unknown) Primary osteoarthritis of both knees Primary osteoarthritis of right knee Right knee pain Type 2 diabetes mellitus (Unknown) UTI (urinary tract infection) Surgical History Surgical History Gastric bypass status for obesity History of appendectomy History of cholecystectomy Hx of tonsillectomy Presence of right artificial knee joint Family History Family History Other Family history of art
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
--- NOTE | 2023-11-24 13:31 | PC.NURSE ---
MULTIPLE RESOURCES FOR DEPT OF AGING, HOUSING AUTHORITY, SENIOR SERVICES, AND [facility] PROVIDED, SEVERAL PAGES OF RESOURCES.
== END 2023-11-24 13:07 | disposition home or self-care (01) ==
PROVIDERS: Emergency Provider Emergency Medicine; PCP Family Medicine
DX: F43.9 Reaction to severe stress, unspecified (principal); E11.9 Type 2 diabetes mellitus without complications
CPT/HCPCS: 99281

== ENCOUNTER 2023-12-10 14:58 | Emergency (ER) | payer MEDICARE, OTHER, SELFPAY ==
[2023-12-10 14:58] VITALS: BP 173/98; PULSE 84; RESP 16; TEMP 36.8; O2SAT 99
--- NOTE | 2023-12-10 16:04 | PC.NURSE ---
Case management speaking with patient now about findings.
--- NOTE | 2023-12-10 16:11 | ED.GENADULT ---
HPI - General Adult General Chief complaint: Medical Clearance Stated complaint: intermediate placement Source: patient and EMS Mode of arrival: ambulatory Limitations: no limitations History of Present Illness HPI narrative: patient presents via EMS with some emotional distress with poor living conditions and wanted to be assessed for intermediate placement . Otherwise patient appears mildly anxious with no suicide intent, denies any pain, no chest pain shortness of breath no abdominal pain no flank pain. Onset (ago): month(s) Related Data Home Medications Medication Instructions Recorded Confirmed metformin 1,000 mg tablet 1,000 mg PO QAM 03/15/19 12/10/23 duloxetine 60 mg capsule,delayed 60 mg PO DAILY 09/28/20 12/10/23 release lovastatin 20 mg tablet 20 mg PO DAILY 09/28/20 12/10/23 budesonide 0.5 mg/2 mL suspension 0.5 mg inhalation BID 10/01/20 12/10/23 for nebulization (Pulmicort) tiotropium bromide 2.5 2 puff inhalation DAILY 10/01/20 12/10/23 mcg/actuation mist for inhalation (Spiriva Respimat) esomeprazole magnesium 20 mg 20 mg PO BID 08/27/21 12/10/23 capsule,delayed release (Nexium) trazodone 100 mg tablet 200 mg PO HS 08/27/21 12/10/23 quetiapine 100 mg PO DAILY 07/13/23 12/10/23 Allergies Allergy/AdvReac Type Severity Reaction Status Date / Time lisinopril AdvReac Cough Verified 11/24/23 12:03 Review of Systems Review of Systems: All systems reviewed & are unremarkable except as noted in HPI and below PMFSH Past Medical History Medical History Abdominal wall hernia Aftercare following right knee joint replacement surgery Anxiety Asthma Body mass index [BMI] 34.0-34.9, adult (08/03/15) Body mass index [BMI] 35.0-35.9, adult (09/27/15) Complications of gastric bypass surgery History of depression (Unknown) Left knee pain Obesity, Class I, BMI 30-34.9 (Unknown) Primary osteoarthritis of both knees Primary osteoarthritis of right knee Right knee pain Type 2 diabetes mellitus (Unknown) UTI (urinary tract infection) Surgical History Surgical History Gastric bypass status for obesity History of appendectomy History of cholecystectomy Hx of tonsillectomy Presence of right artificial knee joint Family History Family History Other Family history of arthritis Family history of malignant neoplasm Hypertension Social History Social History Smoking status: Never smoker Second hand tobacco smoke exposure: Yes (roommate smokes) Alcohol intake: never Substance use: never Substance use type: does not use Gender identity (if verbalized by the patient): Female Spiritual care concerns: No Exam Const: General: healthy appearing and no acute distress Nutritional Appearance: well nourished Orientation/consciousness: patient oriented x3 Limitations: no limitations HENMT: Head: normal to inspection Eyes: Conjunctivae: conjunctivae normal Neck: Neck: normal visual inspection, no lymphadenopathy and no meningeal signs Chest: Chest palpation & inspection: normal inspection of the chest Resp: Effort & Inspection: normal respiratory effort Auscultation: clear to auscultation bilaterally Cardio: Rate: regular rate Rhythm: regular rhythm GI: GI Palp: Yes Soft to palpation Auscultation: normal bowel sounds : General: Yes bladder normal to palpation Urinary Catheter: Urinary Catheter: patent and draining Back/Spine/Pelvis: Back: no CVA tenderness Skin: General skin exam: normal color Rashes: no rashes Neuro: General: patient oriented x3, moves all extremities, no meningeal signs and no focal motor deficits Extrem: General: normal to inspection Course Course Emergency Course: After discussion with licensed clinical social worker that talked to
[2023-12-10 16:19] VITALS: BP 165/85; PULSE 80; RESP 16; TEMP 36.8; O2SAT 99
== END 2023-12-10 16:19 | disposition home or self-care (01) ==
PROVIDERS: Emergency Provider Emergency Medicine; PCP Family Medicine
DX: F41.9 Anxiety disorder, unspecified (principal); F32.A Depression, unspecified; E11.9 Type 2 diabetes mellitus without complications; Z79.899 Other long term (current) drug therapy; Z79.84 Long term (current) use of oral hypoglycemic drugs
CPT/HCPCS: 99283

== ENCOUNTER 2024-03-16 10:00 | Outpatient (RCR) | payer MEDICARE, OTHER, SELFPAY ==
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
[2023-12-28 10:55] VITALS: BP 137/62; PULSE 88; RESP 18; TEMP 36.6; O2SAT 98
--- NOTE | 2023-12-30 09:15 | PC.NURSE ---
No nursing group due to nurse meeting.
[2023-12-30 10:27] VITALS: BP 126/69; PULSE 74; RESP 20; TEMP 36.9; O2SAT 97
[2024-01-04 10:00] VITALS: BP 113/70; PULSE 87; RESP 20; TEMP 37.1; O2SAT 94
--- NOTE | 2024-01-04 15:19 | SLSTHERAPY ---
01/04/2024 [facility] groups scheduled for 01/06/2024 cancelled due to lack of group member attendance; Gladis is scheduled to return to group on 01/11/2024.
[2024-01-11 10:55] VITALS: BP 119/66; PULSE 78; RESP 20; TEMP 36.8; O2SAT 97
[2024-01-14 09:58] VITALS: BP 128/63; PULSE 72; RESP 18; TEMP 36.4; O2SAT 98
--- NOTE | 2024-01-14 10:16 | PC.NURSE ---
No nursing group due to MD visit.
--- NOTE | 2024-01-14 12:58 | WPDSLSPROGRE ---
Progress HPI Progress HPI Visit Attended By patient and staff History Obtained From patient Chief Complaint 3 week follow-up for admission, depression, anxiety, PTSD HPI this is a follow-up from admission. Patient is being seen for depression, anxiety, and PTSD. She says she is not so good says I can not be still, I am so anxious . She reports severe anxiety and depression, including passive suicidal thoughts with no active intent or plan, loss of interest in things, fatigue, nunes insomnia, feelings of worthlessness, hopelessness, crying spells, restlessness, nervousness, worry. Continues on trazodone 200 mg q.h.s., duloxetine 60 mg q.a.m., BuSpar 10 mg b.i.d.. The BuSpar has been on a titration schedule and it looks like that she has been on this most recent dose for 1 or 2 weeks. She also says that the memories of past trauma have been very strong, and she does not know why. We discussed a trial of prazosin. it sounds like her roommate is going to stay in the house after all, which she is happy about. Average Number of Hours of Sleep 4 Sleep Quality difficulty falling asleep, frequent awakening, early awakening, nightmares, vivid dreams and restlessness Change in PMFSH Releveant to Presenting Illness No Review of Systems Review of Systems Constitutional Reports fatigue and other ( Type 2 diabetes, obesity) Eyes Reports WNL ENT Reports WNL Respiratory Reports SOB and other ( COPD) Cardiovascular Reports other ( hypertension, arteriosclerosis) Gastrointestinal Reports other ( GERD) Musculoskeletal Reports abnormal gait Neurologic Reports tremor Skin Reports WNL ADL's Reports WNL Exam Physical Exam Review of Lab Studies n/a Hygiene good General Behavior/Attitude Toward Examiner pleasant, cooperative and distractible Pain No Psychiatric Exam Level of Consciousness alert Orientation person, place, time and situation Speech normal rate/tone/volume/prosody and coherent Language able to comprehend questions Mood anxious, depressed Affect full range, appropriate and congruent Thought Processes/Form logical, linear and goal directed Thought Content depressive, anxiety, PTSD symptoms Delusions none Homicidal/Assaultive Ideation none Suicidal Ideation present ( passive wishes) Hallucinations none Attention/Concentration focused Attention/Concentration Testing Methods observation/interview Short Term Memory Impairment none STM Testing Methods clinical interview (assessment/observation) Account Manager Relief Memory Impairment none LTM Testing Methods recall of biographical information Intellectual Functioning roughly average Intellectual Functioning Assessed By [facility] of knowledge Insight fair Insight Assessed By ability to recognize & acknowledge mental illness, ability to understand the implications of mental illness, understanding of treatment options and ability to comply with treatment Judgement fair Judgement Assessed By exploring recent decision-making MMSE n/a Patient Assets patient is willing to accept treatment, able to perform ADLs Patient Liabilities dependent personality Assessment and Plan Clinical Impression/Diag Clinical Impression/Diagnosis F 33.2, F 43.1 F 41.9, F 60.9. Will start prazosin 1 mg q.h.s., monitor blood pressure. Will see in 2 weeks Progress Overview Reason for Continued Services in an Intensive Outpatient Program continued impaired mood and.or depression, patient would decompenste at a lower level of care, not at baseline level of functioning and high risk for relapse Treatment To Be Provided medication management and group/individual/rec therapy Discharge Disposition/Level of Care PCP Anticipated Discharge 8-12 weeks Certification Statement Certification Statement I believe this patient requires the services of the Intensive Outpatient Program and that there is reasonable expectation that the patient will make timely and significant practical improvement in the presenting acute symptoms as a result of this Intensive Outpatient Program. I do not believe this patient will benefit from a lesser level of care or could be adequately and appropriately treated in a less restrictive environment. My decision is based on the preceding clinical information.
[2024-01-18 11:28] VITALS: BP 112/60; PULSE 88; RESP 20; TEMP 36.7; O2SAT 96
[2024-01-20 10:09] VITALS: BP 145/72; PULSE 70; RESP 18; TEMP 36.9; O2SAT 97
[2024-01-25 09:22] VITALS: BP 125/78; PULSE 83; RESP 18; TEMP 36.4; O2SAT 97
--- NOTE | 2024-01-27 08:37 | PC.NURSE ---
No nursing group due to nurse meeting.
[2024-01-27 08:59] VITALS: BP 124/64; PULSE 80; RESP 20; TEMP 36.6; O2SAT 96
[2024-02-03 10:03] VITALS: BP 143/68; PULSE 72; RESP 20; TEMP 36.9; O2SAT 96
--- NOTE | 2024-02-03 10:09 | PC.NURSE ---
No nursing group due to nurse meeting.
--- NOTE | 2024-02-04 09:31 | PC.NURSE ---
No nursing group due to MD visit.
[2024-02-04 10:11] VITALS: BP 133/70; PULSE 76; RESP 20; TEMP 36.2; O2SAT 97
--- NOTE | 2024-02-04 11:05 | P.PN_ITS ---
Progress HPI Progress HPI Visit Attended By patient and staff History Obtained From patient Chief Complaint Three week medication follow-up HPI this is a routine medication follow-up. Patient is being seen for depression, anxiety, PTSD. At our last visit patient was experiencing severe PTSD symptoms and she was started on prazosin 1 mg q.h.s.. Today she says that it is a miracle drug . Her PTSD symptoms have subsided considerably, she is sleeping well, even has a bit more interest in things, but still experiencing depressive symptoms including worthlessness and hopelessness, but says that her passive wishes are not as strong. She continues trazodone 200 mg q.h.s., duloxetine 60 mg q.a.m., BuSpar 10 mg b.i.d., but of note is that she gets her BuSpar from mail order pharmacy and it is about a week late so she has been off of it for this time. Enjoys program participates well Average Number of Hours of Sleep 6 Sleep Quality difficulty falling asleep and frequent awakening Change in PMFSH Releveant to Presenting Illness Yes Describe Changes in PMFSH improvement in PTSD symptoms as above Review of Systems Review of Systems Constitutional Reports fatigue and other ( type 2 diabetes, obesity) Eyes Reports WNL ENT Reports WNL Respiratory Reports other ( COPD) Cardiovascular Reports other ( arterial sclerosis, hypertension) Gastrointestinal Reports other ( GERD) Musculoskeletal Reports abnormal gait Neurologic Reports tremor Skin Reports WNL ADL's Reports WNL Exam Physical Exam Review of Lab Studies n/a Hygiene good General Behavior/Attitude Toward Examiner pleasant and cooperative Pain No Psychiatric Exam Level of Consciousness alert Orientation person, place, time and situation Speech normal rate/tone/volume/prosody and coherent Language able to comprehend questions Mood less anxious Affect full range, appropriate and congruent Thought Processes/Form logical, linear and goal directed Thought Content diminished PTSD symptoms Delusions none Homicidal/Assaultive Ideation none Suicidal Ideation present ( passive) Hallucinations none Attention/Concentration focused Attention/Concentration Testing Methods observation/interview Short Term Memory Impairment none STM Testing Methods clinical interview (assessment/observation) Halfway Memory Impairment none LTM Testing Methods recall of biographical information Intellectual Functioning roughly average Intellectual Functioning Assessed By current events Insight fair and improving Insight Assessed By ability to recognize & acknowledge mental illness, ability to understand the implications of mental illness, understanding of treatment options and ability to comply with treatment Judgement fair and improving Judgement Assessed By exploring recent decision-making MMSE n/a Patient Assets patient is willing to accept treatment, able to perform ADLs Patient Liabilities dependent personality Assessment and Plan Clinical Impression/Diag Clinical Impression/Diagnosis F 33.2, F 43.1, F 41.9, F 60.9. PTSD symptoms improve. We offered to write her short-term prescription for BuSpar until her mail order pharmacy delivers it but she said she would just prefer to wait. No change in medication, monitor meds, continue IOP. Progress Overview Reason for Continued Services in an Intensive Outpatient Program continued impaired mood and.or depression, patient would decompenste at a lower level of care, not at baseline level of functioning and high risk for relapse Treatment To Be Provided medication management and group/individual/rec therapy Discharge Disposition/Level of Care PCP Anticipated Discharge 8-12 weeks Certification Statement Certification Statement I believe this patient requires the services of the Intensive Outpatient Program and that there is reasonable expectation that the patient will make timely and significant practical improvement in the presenting acute symptoms as a result of this Intensive Outpatient Program. I do not believe this patient will benefit from a lesser level of care or could be adequately and appropriately treated in a less restrictive environment. My decision is based on the preceding clinical information.
[2024-02-08 10:15] VITALS: BP 122/72; PULSE 83; RESP 20; TEMP 37.2; O2SAT 99
[2024-02-10 10:12] VITALS: BP 117/60; PULSE 74; RESP 20; TEMP 36.7; O2SAT 97
--- NOTE | 2024-02-12 10:35 | PC.NURSE ---
The patient reported she will not be able to attend her scheduled group session on Thursday02/15/24 due to needing to look at apartments.
--- NOTE | 2024-02-15 08:32 | SLSTHERAPY ---
Gladsi canceled 02/15/2024 group attendance; she is scheduled to return 02/17/2024. 8:33
--- NOTE | 2024-02-16 08:36 | SLSTHERAPY ---
phone call to Gladis to confirm 02/17/2024 group attendance; Gladis canceled 02/17/2024 group attendance due to being in the process of relocating at this time; Gladis is scheduled to return to group 02/22/2024.
--- NOTE | 2024-02-19 08:38 | SLSTHERAPY ---
Phone call to Gladis to confirm group attendance for the week of 02/22/2024 & [facility] doctor appointment for 02/25/2024; Gladis canceled group attendance for 02/21 & 02/24/2024; she agreed to contact [facility] staff regarding ability to attend 02/25/2024 doctor appointment.
--- NOTE | 2024-02-25 09:20 | PC.NURSE ---
No nursing group due to MD visit.
[2024-02-25 10:19] VITALS: BP 136/67; PULSE 87; RESP 20; TEMP 36.6; O2SAT 96
--- NOTE | 2024-02-25 12:26 | WPDSLSPROGRE ---
Progress HPI Progress HPI Visit Attended By patient and staff History Obtained From patient Chief Complaint 3 week follow-up for depression, anxiety, PTSD. HPI This is a routine follow-up. Patient had somewhat of a difficult morning as 1 of the group members who recently lost her talked about this, and this triggered some traumatic issues for patient. We reassured her that this was normal and suggested individual therapy p.r.n. so she might be able to discuss these particular issues, as she feels it would be difficult for her to bring this up in group. Continues trazodone 200 mg q.h.s., prazosin 1 mg q.h.s., duloxetine 60 mg q.a.m., BuSpar 10 mg b.i.d.. Enjoys program participates well. She is also having ongoing oral dyskinetic movements which have been present for quite some time. She is not on an antipsychotic. Patient says she had been sleeping a bit better, up to 7 hours a night, since being on the prazosin. Average Number of Hours of Sleep 7 Sleep Quality difficulty falling asleep and frequent awakening Change in PMFSH Releveant to Presenting Illness Yes Describe Changes in PMFSH As above Review of Systems Review of Systems Constitutional Reports fatigue and other ( NIDDM, obesity) Eyes Reports WNL ENT Reports WNL Respiratory Reports WNL Cardiovascular Reports other ( arteriosclerosis, hypertension) Gastrointestinal Reports other ( GERD) Musculoskeletal Reports abnormal gait Neurologic Reports tremor and other ( oral dyskinetic movements) Skin Reports WNL ADL's Reports WNL Exam Physical Exam Review of Lab Studies n/a Hygiene good General Behavior/Attitude Toward Examiner pleasant and cooperative Pain No Psychiatric Exam Level of Consciousness alert Orientation person, place, time and situation Speech normal rate/tone/volume/prosody and coherent Language able to comprehend questions Mood anxious, tearful Affect full range, appropriate and congruent Thought Processes/Form logical, linear and goal directed Thought Content depressive, anxiety, PTSD symptoms Delusions none Homicidal/Assaultive Ideation none Suicidal Ideation none Hallucinations none Attention/Concentration focused Attention/Concentration Testing Methods observation/interview Short Term Memory Impairment none STM Testing Methods clinical interview (assessment/observation) Die Reamer Memory Impairment none LTM Testing Methods recall of biographical information Intellectual Functioning roughly average Intellectual Functioning Assessed By current events Insight fair and improving Insight Assessed By ability to recognize & acknowledge mental illness, ability to understand the implications of mental illness, understanding of treatment options and ability to comply with treatment Judgement fair and improving Judgement Assessed By exploring recent decision-making MMSE n/a Patient Assets able to perform ADLs, willing to accept treatment Patient Liabilities dependent personality Assessment and Plan Progress Overview Anticipated Discharge F 33.2, F 43.1, F 41.9, F 60.9, recent exacerbation of PTSD symptoms. Continue IOP, monitor meds, no change at this time Certification Statement Certification Statement I believe this patient requires the services of the Intensive Outpatient Program and that there is reasonable expectation that the patient will make timely and significant practical improvement in the presenting acute symptoms as a result of this Intensive Outpatient Program. I do not believe this patient will benefit from a lesser level of care or could be adequately and appropriately treated in a less restrictive environment. My decision is based on the preceding clinical information.
[2024-03-01 10:13] VITALS: BP 110/70; PULSE 74; RESP 20; TEMP 36.4; O2SAT 97
[2024-03-02 10:12] VITALS: BP 110/66; PULSE 88; RESP 20; TEMP 36.6; O2SAT 96
[2024-03-07 10:17] VITALS: BP 137/62; PULSE 80; RESP 20; TEMP 37.1; O2SAT 97
[2024-03-09 10:17] VITALS: BP 127/70; PULSE 68; RESP 20; TEMP 36.5; O2SAT 96
[2024-03-14 10:16] VITALS: BP 120/64; PULSE 90; RESP 20; TEMP 36.8; O2SAT 96
--- NOTE | 2024-03-16 10:13 | PC.NURSE ---
No nursing group due to MD visit.
[2024-03-16 10:20] VITALS: BP 130/64; PULSE 83; RESP 20; TEMP 36.7; O2SAT 93
--- NOTE | 2024-03-16 13:35 | WPDSLSPROGRE ---
Progress HPI Progress HPI Visit Attended By patient and staff History Obtained From patient Chief Complaint Three week follow-up visit HPI patient is being seen for depression, anxiety, and PTSD. She arrived today somewhat distraught over the fact that she has been anxious, depressed, and experiencing PTSD symptoms, the latter of which occurs when she feels that she is triggered in group. She did see Mechelle once [facility] and this seemed to help considerably but patient says that she is back to where she was before. In addition, she is very worried over the fact that she is anemic, which she said was diagnosed after she had been experiencing some symptoms such as excessive heat and cold, feeling hot in her chest, and shaky. Continues trazodone 200 mg q.h.s., prazosin 1 mg q.h.s., duloxetine 60 mg q.a.m., BuSpar 10 mg b.i.d.. Although she was recently started on prazosin, she said her doctor reassured her that he did not think the symptoms were due to prazosin, and she felt this helped before. Average Number of Hours of Sleep 7 Sleep Quality difficulty falling asleep, frequent awakening and restlessness Change in PMFSH Releveant to Presenting Illness Yes Describe Changes in PMFSH As above Review of Systems Review of Systems Constitutional Reports fatigue and other ( anemia, and IDDM, obesity) Eyes Reports WNL ENT Reports WNL Respiratory Reports WNL Cardiovascular Reports other ( arterial sclerosis, hypertension) Gastrointestinal Reports other ( GERD) Musculoskeletal Reports abnormal gait Neurologic Reports tremor Skin Reports WNL ADL's Reports WNL Exam Physical Exam Review of Lab Studies n/a Hygiene good General Behavior/Attitude Toward Examiner pleasant and cooperative Pain No Psychiatric Exam Level of Consciousness alert Orientation person, place and time Speech normal rate/tone/volume/prosody and coherent Language able to comprehend questions Mood anxious, depressed Affect full range, appropriate and congruent Thought Processes/Form logical and linear Thought Content depressive, anxiety, PTSD symptoms Delusions none Homicidal/Assaultive Ideation none Suicidal Ideation none Hallucinations none Attention/Concentration focused Attention/Concentration Testing Methods observation/interview Short Term Memory Impairment none STM Testing Methods clinical interview (assessment/observation) Cashier Assistant Memory Impairment none LTM Testing Methods recall of biographical information Intellectual Functioning roughly average Intellectual Functioning Assessed By current events Insight fair Insight Assessed By ability to recognize & acknowledge mental illness, ability to understand the implications of mental illness and understanding of treatment options Judgement fair Judgement Assessed By exploring recent decision-making MMSE n/a Patient Assets patient is willing to accept treatment, able to perform ADLs Patient Liabilities dependent personality Assessment and Plan Clinical Impression/Diag Clinical Impression/Diagnosis F 33.2, F 43.1, F 41.9, F 60.9, persistent symptoms. Will increase prazosin to 2 mg q.h.s. Progress Overview Reason for Continued Services in an Intensive Outpatient Program continued impaired mood and.or depression, patient would decompenste at a lower level of care, not at baseline level of functioning and high risk for relapse Treatment To Be Provided medication management and group/individual/rec therapy Discharge Disposition/Level of Care PCP Anticipated Discharge 8-12 weeks Certification Statement Certification Statement I believe this patient requires the services of the Intensive Outpatient Program and that there is reasonable expectation that the patient will make timely and significant practical improvement in the presenting acute symptoms as a result of this Intensive Outpatient Program. I do not believe this patient will benefit from a lesser level of care or could be adequately and appropriately treated in a less restrictive environment. My decision is based on the preceding clinical information.
--- NOTE | 2024-03-21 08:33 | PC.NURSE ---
The patient called this nurse and reported she would not be able to attend her scheduled session today due to being sick with a cold.
--- NOTE | 2024-03-22 08:40 | PC.NURSE ---
The patient called and reported she was still not feeling well and will not be attending her scheduled session tomorrow.
== END 2024-03-23 23:59 | disposition home or self-care (01) ==
LOC: CHSSENLIFE 10:00
PROVIDERS: PCP Family Medicine; Visit Provider Psychiatry & Neurology Psychiatry
DX: F33.2 Major depressive disorder, recurrent severe without psychotic features (principal); F41.9 Anxiety disorder, unspecified; F60.9 Personality disorder, unspecified
CPT/HCPCS: 90792; 90837; 90853; 99213; 99214; G0463

== ENCOUNTER 2024-03-25 08:41 | Outpatient (RCR) | payer MEDICARE, OTHER, SELFPAY ==
[2024-03-24 00:03] VITALS: BP 130/64; PULSE 83; RESP 20; TEMP 36.7; O2SAT 93
[2024-03-25 10:02] VITALS: BP 130/78; PULSE 84; RESP 20; TEMP 36.4; O2SAT 98
--- NOTE | 2024-03-28 13:56 | SLSTHERAPY ---
Gladis canceled 03/28/2024 group attendance to to medical emergency; fell & was treated in ER.
--- NOTE | 2024-03-30 08:21 | SLSTHERAPY ---
Gladis canceled group attendance for 03/30/2024; she is scheduled to return to group 04/04/2024.
--- NOTE | 2024-04-06 10:33 | SLSTHERAPY ---
Phone call to Gladis to confirm scheduled group & [facility] doctor appointment for 04/07/2024; no answer; voicemail message left requesting Gladis contact [facility] staff.
--- NOTE | 2024-04-07 14:19 | PC.NURSE ---
The patient did not attend her group session or doctor's appointment today. Several messages have been left for the patient.
--- NOTE | 2024-04-11 14:56 | PC.NURSE ---
The patient no called no showed her group session today.
--- NOTE | 2024-04-12 15:19 | SLSTHERAPY ---
Gladis no-showed for group 04/11/2023; no-show; no-call
--- NOTE | 2024-04-15 08:31 | SLSTHERAPY ---
Phone call to Gladis to confirm attendance for group 04/18/2024; no answer; voicemail message left requesting Gladis contact [facility] staff.
--- NOTE | 2024-04-19 08:25 | SLSTHERAPY ---
Gladis no-showed/no-called for 04/18/2024 group attendance.
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
== END 2024-04-28 14:02 | disposition home or self-care (01) ==
LOC: CHSSENLIFE 08:41
PROVIDERS: PCP Family Medicine; Visit Provider Psychiatry & Neurology Psychiatry
DX: F33.2 Major depressive disorder, recurrent severe without psychotic features (principal); F41.9 Anxiety disorder, unspecified; F60.9 Personality disorder, unspecified
CPT/HCPCS: 90837

== ENCOUNTER 2024-03-28 09:53 | Emergency (ER) | payer MEDICARE, OTHER, SELFPAY ==
--- NOTE | ~2024-03-28 | CT_ITS ---
CT cervical spine wo con Ordering provider: Prince Armendariz MD History: . FALL,RT SIDE HI-LAC,GENERAL NECK PAIN,MAR,DENIES LOC . Comparison: None. Technique: CT of the cervical spine was performed without contrast. Sagittal and coronal reformatted images were also obtained and reviewed. Automated exposure control and iterative reconstruction mu hnique were employed. The dose-length product was 372.71 mGy-cm. FINDINGS: VERTEBRAE: No subluxation or acute fracture. The occipital condyles are intact. DISC SPACES: Degenerative disc disease at the level of T1-T2. . Other levels are normal. Multilevel f acet joint disease. Bilateral narrowing of the foramina at the level of C4-C5 and C5-C6. PARASPINOUS SOFT TISSUES: Normal. Cerumen is seen in both external auditory canal. Bilateral carotid atherosclerotic changes. IMPRESSION: No acute osseous abnormality cervical spine. Multilevel degenerative disc disease. Reviewed, dictated and finalized at location A. OR SECURITY ANALYST
--- NOTE | ~2024-03-28 | XR_ITS ---
EXAMINATION: XR knee LT 3V DATE: 03/28/2024 11:04 INDICATION: Left knee pain post fall TECHNIQUE: AP and crosstable lateral views of the left knee were obtained. COMPARISON: None. FINDINGS: Alignment is normal. No fracture. Mild to moderate lateral and patellofemoral compartment predominant tricompartmental osteoarthritis at the left knee. No left knee joint effusion or evident layering li pohemarthrosis. IMPRESSION: 1. Mild to moderate lateral and patellofemoral compartment predominant tricompartmental osteoarthriti s left knee with no joint effusion or acute osseous abnormality. Reviewed, dictated and finalized at location A. TRICAL AND ELECTRONIC ASSEMBLER IMPRESSION: 1. Mild to moderate lateral and patellofemoral compartment predominant tricompa rtmental osteoarthritis left knee with no joint effusion or acute osseous abnor mality.
--- NOTE | ~2024-03-28 | CT_ITS ---
CT brain wo con Ordering provider: Prince Armendariz MD History: 78 years Female with . FALL RT SIDE HI-LAC,MAR,DENIES LOC,NECK PAIN . Comparison: October 09, 2020 Technique: CT of the head without contrast. Radiation reduction technique utilized.The dose-length pr oduct was 605.33 mGy-cm. FINDINGS: BRAIN PARENCHYMA AND CSF SPACES: Mild leukoaraiosis and diffuse cortical atrophy. Mild atheromatous d isease. No midline shift, mass effect or hemorrhage. The brain parenchyma and CSF spaces are otherwi se normal. 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 VISUALIZED PARANASAL SINUSES: Well aerated. MASTOIDS: Well aerated. BONES: The bones appear intact. SOFT TISSUES: Visualized nasopharynx is normal. Right frontal scalp hematoma otherwise, Superficial soft tissues are normal. IMPRESSION: No acute intracranial findings. Reviewed, dictated and finalized at location A. NICU
--- NOTE | ~2024-03-28 | XR_ITS ---
XR knee RT 3V Ordering provider: Prince Armendariz MD History: . Fall X today, LT knee worse than RT, Hx of RT TKR . Comparison: October 09, 2015 FINDINGS: BONES: No acute fracture or dislocation. Bone island seen in the distal femur unchanged. JOINT SPACES: Total knee arthroplasty. SOFT TISSUES: Normal. IMPRESSION: No acute osseous abnormality right knee. Total Knee arthroplasty. Reviewed, dictated and finalized at location A. LIFE MANAGER
[2024-03-28 09:53] VITALS: BP 144/59; PULSE 91; RESP 18; TEMP 36.4; O2SAT 98
--- NOTE | 2024-03-28 09:55 | PC.NURSE ---
Addendum entered by Shaunna Bahena RN 03/28/24 11:01: Time entered incorrectly: Pt transported to radiology 1045 Original Note: Pt transported to radiology
[2024-03-28] MEDS: LIDO 1%/EPINEPHRINE 1:100,000 20 ML VIAL (10:00)
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
--- NOTE | 2024-03-28 11:02 | PC.NURSE ---
Pt returns from radiology.
[2024-03-28] MEDS: TETANUS,DIPHTHERIA,AC PERTUSSIS ADULT 0.5 ML (ADACEL) IM (11:05)
[2024-03-28] MEDS: CEPHALEXIN 500 MG CAPSULE PO (11:06)
[2024-03-28] MEDS: NEOMYCIN/POLYMYXIN/BACITRACIN OINTMENT PACKET 2 PACKET (11:07)
[2024-03-28 11:41] VITALS: BP 138/57; PULSE 74; O2SAT 96
== END 2024-03-28 12:04 | disposition home or self-care (01) ==
PROVIDERS: Emergency Provider Emergency Medicine; PCP Family Medicine
DX: S01.01XA Laceration without foreign body of scalp, initial encounter (principal); M25.561 Pain in right knee; M54.2 Cervicalgia; E11.9 Type 2 diabetes mellitus without complications; Z79.899 Other long term (current) drug therapy; Z79.84 Long term (current) use of oral hypoglycemic drugs; Z23 Encounter for immunization; W10.8XXA Fall (on) (from) other stairs and steps, initial encounter; Y92.811 Bus as the place of occurrence of the external cause
CPT/HCPCS: 12004; 70450; 72125; 73562; 90471; 90715; 99284; A9270; J2004; L0150

== ENCOUNTER 2024-05-19 02:46 | Emergency (ER) | payer MEDICARE, OTHER, SELFPAY ==
[2024-05-19] VITALS (14 sets, daily range): BP systolic 107–167; BP diastolic 56–106; PULSE 75–106; RESP 12–32; TEMP 35.7–36.4; O2SAT 86–100
--- NOTE | ~2024-05-19 | XR_ITS ---
XR chest 1V portable 05/19/2024 03:12 Indication: Shortness of breath Procedure: AP portable chest Comparison: Comparison to multiple prior studies sequentially, with oldest reviewed study dated 09/2020. Findings: Heart size normal. No focal air space disease, pulmonary edema, pleural effusion or suspect ed pneumothorax. No acute osseous abnormality. Impression: 1: No acute cardiopulmonary disease. Reviewed, dictated and finalized at location A. OGRAPHIC SPOTTER Impression: 1: No acute cardiopulmonary disease.
--- NOTE | ~2024-05-19 | CT_ITS ---
EXAMINATION: CTA chest PE protocol DATE: 05/19/2024 5:33 CONTROL AND RECOVERY COMBAT RESCUE INDICATION: Shortness of breath with tachycardia TECHNIQUE: Computed tomographic angiography (CTA) of the chest was performed with 100 mL Omnipaque-35 0 intravenous contrast. The dose-length product was 389.99 mGy-cm. Maximum intensity projection 3D-re constructions of the aorta and other arteries were constructed by the technologist on a separate work station. Automated exposure control and iterative reconstruction technique were employed. COMPARISON: CT dated 08/27/2021. FINDINGS: Study is technically adequate without evidence for pulmonary embolism. Heart size normal. S mall hiatal hernia. No significant pleural or pericardial effusion. Small hiatal hernia. Postoperativ e changes consistent with gastric bypass. Colonic diverticulosis. Left kidney not visualized, likely low lying. No thoracic lymphadenopathy. No endobronchial lesions. Bilateral lower lobe atelectasis. N o focal pneumonia, endobronchial lesion or pneumothorax. Moderate thoracic spondylosis with accentuat ed kyphosis. No acute osseous abnormality. IMPRESSION: 1. No evidence for pulmonary embolism. No acute cardiopulmonary disease. Reviewed, dictated and finalized at location A. ROL AND RECOVERY COMBAT RESCUE
--- NOTE | 2024-05-19 02:47 | ED_ITS ---
HPI - SOB/Dyspnea General Chief Complaint: Shortness of Breath/Dyspnea Stated Complaint: shortness of breathe Time Seen by Provider: 05/19/24 02:47 Source: patient and EMS Mode of arrival: ambulatory Limitations: no limitations History of Present Illness HPI Narrative: 78-year-old female with a history of anxiety / depression, non dependent behavior, status post gastric bypass, small bowel obstruction status post resection with anastomosis, abdominal hernia status post repair, arthritis, hypertension, diabetes mellitus, CVA with TIA got up from a sleep with -- severe anxiety. The patient felt warm and flushed. -- Shortness of breath. no cough or sputum production. No fever or chills MD elicited complaint: shortness of breath Pertinent past history: other ( anxiety) Onset (ago): hour(s) ( 1 hour) Timing: constant Severity: severe Exacerbating factors: nothing Relieving factors: nothing Associated symptoms: denies other symptoms Treatment prior to arrival: none Related Data Home oxygen amount: none Home Medications ?Medication ?Instructions ?Recorded ?Confirmed ?Last Taken ?Type metformin 1,000 mg tablet 1,000 mg PO BID 03/15/19 03/28/24 04/16/22 History duloxetine 60 mg capsule,delayed 60 mg PO DAILY 09/28/20 03/28/24 04/16/22 History release lovastatin 20 mg tablet 20 mg PO QHS 09/28/20 03/28/24 04/15/22 History budesonide 0.5 mg/2 mL suspension 0.5 mg inhalation BID 10/01/20 03/28/24 Unknown History for nebulization (Pulmicort) tiotropium bromide 2.5 2 puff inhalation DAILY 10/01/20 03/28/24 Unknown History mcg/actuation mist for inhalation (Spiriva Respimat) esomeprazole magnesium 20 mg 20 mg PO BID 08/27/21 03/28/24 04/16/22 History capsule,delayed release (Nexium) trazodone 100 mg tablet 200 mg PO HS 08/27/21 03/28/24 04/15/22 History prazosin 1 mg capsule 1 mg PO QHS 03/28/24 03/28/24 Unknown History Allergies Allergy/AdvReac Type Severity Reaction Status Date / Time lisinopril AdvReac Cough Verified 03/28/24 10:12 Review of Systems 2 Review of Systems: All systems reviewed & are unremarkable except as noted in HPI and below Constitutional: Constitutional: Reports as per HPI and Reports no additional constitutional complaints Eyes: Eyes: Reports as per HPI and Reports no additional eye complaints ENT: Reports system reviewed and no additional complaints, except as documented and Reports as per HPI Cardiovascular: Cardiovascular: Reports as per HPI and Reports no additional cardiovascular complaints Respiratory: Respiratory: Reports as per HPI, Reports no additional respiratory complaints and Reports dyspnea Gastrointestinal: Gastrointestinal: Reports as per HPI and Reports no additional gastrointestinal complaints Genitourinary: Genitourinary: Reports no additional female genitourinary complaints and Reports as per HPI Musculoskeletal: Musculoskeletal: Reports no additional musculoskeletal complaints and Reports as per HPI Integumentary/Breasts: Skin/Breast: Reports system reviewed and no additional complaints, except as docu and Reports as per HPI Neurologic: Reports system reviewed and no additional complaints, except as documented and Reports as per HPI Psychiatric: Psychiatric: Reports no additional psychiatric complaints, Reports as per HPI and Reports anxiety Endocrine: Endocrine: Reports no additional endocrine complaints and Reports as per HPI Hematologic/Lymphatic: Hematologic/Lymphatic: Reports no additional hematologic/lymphatic complaints and Reports as per HPI Allergic/Immunologic: Allergic/Immunologic: Reports no additional allergic/immunologic complaints and Reports as per HPI PMFSH Past Medical History Medical History Asthma Abdominal wall hernia UTI (urinary tract infection) Aftercare following right knee joint replacement surgery Body mass index [BMI] 34.0-34.9, adult (08/03/15) Primary osteoarthritis of right knee Right knee pain Anxiety Obesity, Class I, BMI 30-34.9 (Unknown) History of depression (Unknown) Type 2 diabetes mellitus (Unknown) Complications of gastric bypass surgery Body mass index [BMI] 35.0-35.9, adult (09/27/15) Left knee pain Primary osteoarthritis of both knees Surgical History Surgical History Hx of tonsillectomy History of cholecystectomy History of appendectomy Gastric bypass status for obesity Presence of right artificial knee joint Family History Family History Other Family history of arthritis Family history of malignant neoplasm Hypertension Social History Social History Smoking status: Never smoker Second hand tobacco smoke exposure: Yes (roommate smokes) Alcohol intake: never Substance use: never Substance use type: does not use Gender identity (if verbalized by the patient): Female Spiritual care concerns: No Exam 2 Narrative: patient is saturating 99% on room air with a respiratory rate of 30. Patient is hyperventilating. Pulse rate of 96. Temperature 35.7?. Const: General: ill appearing Orientation/consciousness: patient oriented x3 Limitations: no limitations HENMT: Head: normal to inspection Ears: external ears normal F roberta/Nose/Sinus: Normal external nose present Face and sinus: normal facial exam Mouth: Yes Normal oral and palatal mucosa present Throat: posterior oropharynx normal Eyes: Conjunctivae: conjunctivae normal Pupils: Equal, round and reactive pupils present EOM: EOMs intact bilaterally Direct Ophthalmoscopy: no photophobia Neck: Neck: normal visual inspection, no lymphadenopathy and no meningeal signs Chest: Chest palpation & inspection: normal inspection of the chest Resp: Effort & Inspection: tachypneic Auscultation: clear to auscultation bilaterally Cardio: Rate: regular rate Rhythm: regular rhythm GI: GI Palp: Yes Soft to palpation Auscultation: normal bowel sounds : General: Yes no CVA tenderness Back/Spine/Pelvis: Back: no CVA tenderness Skin: General skin exam: normal color Rashes: no rashes Wounds: no wounds Neuro: General: patient oriented x3, moves all extremities, no meningeal signs, no focal motor deficits and CN's II-XI intact bilaterally Cranial nerves: Yes Nystagmus not present Speech: normal speech Gait exam (Neuro): Normal gait present Extrem: General: normal to inspection and no clubbing, cyanosis or edema Psych: Mental Status: mental status grossly normal Affect: Anxious affect present Attitude: cooperative Course Course Emergency Course: Anxiety/panic attack- patient did not take her usual trazodone 200 mg at bedtime for the last 4 days. As soon as the patient received 200 of trazodone and 0.5 mg of Xanax the patient has been asymptomatic. shortness of breath-- chest x-ray did not show any Infiltrates evidence of CHF. Positive D-dimer-- CT of the chest was negative for PE The patient wants residential placement. Vital Signs Vital signs: Vital Signs Temperature 36.4 C 05/19/24 02:46 Pulse Rate 93 05/19/24 02:46 Respiratory Rate 32 H 05/19/24 02:46 Blood Pressure 164/87 H 05/19/24 02:46 Pulse Oximetry 100 05/19/24 02:46 Oxygen Delivery Room Air 05/19/24 02:46 Temperature 35.7 C L 05/19/24 02:51 Pulse Rate 75 05/19/24 06:01 Respiratory Rate 15 05/19/24 06:01 Blood Pressure 107/56 L 05/19/24 06:01 Pulse Oximetry 92 05/19/24 06:01 Oxygen Delivery Room Air 05/19/24 04:16 MDM - SOB/Dyspnea MDM Narrative Medical decision making narrative: Anxiety/panic attack Differential Diagnosis Differential diagnosis: Likely acute exacerbation of chronic obstructive airways disease and congestive heart failure Medical Records Attestation: I reviewed the patient's medical records. Lab Data Attestation: I reviewed the patient's lab results. 05/19/24 03:18 05/19/24 03:18 Labs: Lab Results 05/19/24 Range/Units 03:18 WBC 8.9 (4.8-10.8) K/mm3 RBC 5.11 (4.20-5.40) M/mm3 Hgb 15.4 H (11.7-13.8) g/dL Hct 46.3 H (35.0-42.0) % MCV 90.6 (78.0-102.0) fL MCH 30.1 (27.0-31.0) pg MCHC 33.3 (32-36) g/dL RDW 14.3 (11.6-14.4) % Plt Count 257 (150-420) K/mm3 MPV 11.1 (9.2-11.8) fl Immature Gran % (Auto) 0.2 H (0.0-0.0) % Neut % (Auto) 55.3 (50.0-70.0) % Lymph % (Auto) 36.2 (18.0-42.0) % [place] % (Auto) 5.7 (2.0-11.0) % Eos % (Auto) 2.4 (1.0-6.0) % Baso % (Auto) 0.2 (0.0-1.0) % Lymph # (Auto) 3.22 (1.10-4.50) K/mm3 [place] # (Auto) 0.51 (0.10-0.90) K/mm3 Eos # (Auto) 0.21 (0.02-0.50) K/mm3 Baso # (Auto) 0.02 (0.00-0.10) K/mm3 Abs Immat Gran (auto) 0.02 H (0.00-0.00) K/mm3 Absolute Neuts (auto) 4.92 (1.70-7.20) K/mm3 Absolute Nucleated RBC 0.00 (0.00-0.00) K/mm3 Nucleated RBC % 0.0 (0-0.0) % D-Dimer 1.38 H* (0.19-0.50) mg/L Sodium 138 (136-145) mmol/L Potassium 4.7 (3.5-5.1) mmol/L Chloride 99 (98-108) mmol/L Carbon Dioxide 23 (21-32) mmol/L Anion Gap 16 H (4-12) mmol/L BUN 7 (7-18) mg/dL Creatinine 0.88 (0.55-1.02) mg/dL Estim Creat Clear Calc 43 ml/min Estimated GFR > 60 (59 - ) Glucose 108 H (70-99) mg/dL Calculated Osmolality 285 (285-295) mOsm/kg Lactic Acid 2.0 (0.4-2.0) mmol/L Calcium 10.0 (8.5-10.1) mg/dL Total Bilirubin 1.0 (0.00-1.00) mg/dL AST 13 L (15-37) U/L ALT 13 L (14-59) U/L Alkaline Phosphatase 46 (46-116) U/L Troponin I 31.0 (0.00-60.4) ng/L NT-Pro-B Natriuret Pep 634 H (0-450) pg/mL Total Protein 7.2 (6.4-8.2) g/dL Albumin 4.4 (3.4-5.0) g/dL Influenza A (RT-PCR) Negative (Negative) Influenza B (RT-PCR) Negative (Negative) RSV (RT-PCR) Negative (Negative) SARS-CoV-2 RNA (RT-PCR) Negative (Negative) Discharge Plan Discharge Patient Language: [place]ese Prescriptions: No Action lovastatin 20 mg Tablet 20 mg PO QHS duloxetine 60 mg Capsule,Delayed Release(Dr/Ec) 60 mg PO DAILY alprazolam [Xanax] 0.5 mg tablet 0.5 mg PO BID PRN (Reason: anxiety) Qty: 14 0RF prazosin 1 mg capsule 1 mg PO QHS cephalexin 500 mg capsule 500 mg PO Q8H 7 Days Qty: 21 0RF metformin 1,000 mg Tablet 1,000 mg PO BID trazodone 100 mg Tablet 200 mg PO HS esomeprazole magnesium [Nexium] 20 mg Capsule,Delayed Release(Dr/Ec) 20 mg PO BID budesonide [Pulmicort] 0.5 mg/2 mL Suspension For Nebulization 0.5 mg INHALATION BID Spiriva Respimat 2.5 mcg/actuation Mist 2 puff INHALATION DAILY Follow-up/Referrals: UNKNOWN,DOCTOR [Primary Care Provider] -
--- NOTE | 2024-05-19 03:01 | ECG_ITS ---
Test Date: 2024-05-19 03:25:50 Measurements Intervals [place] Rate: 94 P: 0 [place]: 0 QRS: -2 QRSD: 90 T: 97 QT: 335 QTc: 419 Interpretive Statements significant baseline artifact however most likely sinus rhythm NONSPECIFIC ST & T-WAVE ABNORMALITY No previous ECG available for comparison Electronically Signed On 05-19-2024 11:40:15 CABLE MECHANIC by Chato Smith M.D.
[2024-05-19] MEDS: ALPRAZolam (*CRX) 0.5 MG TABLET PO (03:13)
--- NOTE | 2024-05-19 03:19 | PC.NURSE ---
XRAY AT THE BEDSIDE
[2024-05-19 03:21] LABS: Basophils Absolute Auto 0.02 K/mm3 (0.00-0.10); Basophils Percent Auto 0.2 % (0.0-1.0); Eosinophils Absolute Auto 0.21 K/mm3 (0.02-0.50); Eosinophils Percent Auto 2.4 % (1.0-6.0); Hematocrit 46.3 % (35.0-42.0); Hemoglobin 15.4 g/dL (11.7-13.8); Immature Granulocyte Absolute 0.02 K/mm3 (0.00-0.00); Immature Granulocyte Percent A 0.2 % (0.0-0.0); Lymphocytes Absolute Auto 3.22 K/mm3 (1.10-4.50); Lymphocytes Percent Auto 36.2 % (18.0-42.0); Mean Corpuscular HGB Conc 33.3 g/dL (32-36); Mean Corpuscular Hemoglobin 30.1 pg (27.0-31.0); Mean Corpuscular Volume 90.6 fL (78.0-102.0); Mean Platelet Volume 11.1 fl (9.2-11.8); Monocytes Absolute Auto 0.51 K/mm3 (0.10-0.90); Monocytes Percent Auto 5.7 % (2.0-11.0); Neutrophils Absolute Auto 4.92 K/mm3 (1.70-7.20); Neutrophils Percent Auto 55.3 % (50.0-70.0); Platelet Count Result 257 K/mm3 (150-420); Red Blood Count 5.11 M/mm3 (4.20-5.40); Red Cell Distribution Width 14.3 % (11.6-14.4); White Blood Count 8.9 K/mm3 (4.8-10.8)
--- NOTE | 2024-05-19 03:52 | PC.NURSE ---
PATIENT REPORTS THAT SHE HAS BEEN OUT OF HER TRAZODONE FOR THE PAST 4 DAYS. WANTS A DOSE OF HER MEDICATION. SPOKE WITH DR ANN. VERBAL ORDER FOR TRAZODONE 200MG PO
[2024-05-19 03:59] LABS: SARS-CoV-2 RNA PCR Negative (Negative)
[2024-05-19 04:00] LABS: D Dimer 1.38 mg/L (0.19-0.50); Influenza A QL RT-PCR Negative (Negative); Influenza B QL RT-PCR Negative (Negative); RSV RNA, RT-PCR Negative (Negative)
[2024-05-19] MEDS: traZODone HCL 50 MG TABLET 200 MG PO (04:05)
[2024-05-19 04:07] LABS: Alanine Aminotransferase 13 U/L (14-59); Albumin Level 4.4 g/dL (3.4-5.0); Alkaline Phosphatase 46 U/L (46-116); Anion Gap 16 mmol/L (4-12); Aspartate Amino Transferase 13 U/L (15-37); Blood Urea Nitrogen 7 mg/dL (7-18); Carbon Dioxide 23 mmol/L (21-32); Chloride 99 mmol/L (98-108); Estimated CRCL calculation 43 ml/min; Estimated Glomerular Filt Rate > 60; Glucose 108 mg/dL (70-99); NT Pro B Type Natriuretic Pept 634 pg/mL (0-450); Osmolality Calculated 285 mOsm/kg (285-295); Potassium 4.7 mmol/L (3.5-5.1); Sodium 138 mmol/L (136-145); Total Protein 7.2 g/dL (6.4-8.2)
--- NOTE | 2024-05-19 04:08 | PC.NURSE ---
PATIENT REPORTS THAT SHE CAN NOT GO BACK HOME. SHE CAN NO LONGER CARE FOR HERSELF. SHE NEEDS SOMEONE TO TAKE CARE OF HER. REQUESTING INTERMEDIATE PLACEMENT. WILL UPDATE DR ANN
--- OUTSIDE RECORDS SUMMARY | 2024-05-19 04:08 | XMS_ITS | Encounter Summary ---
Author Organization [facility] Address [address] [place] [address]. [place], [place] [address] [place] [address] Care Team Providers Care Hockey Player Name Role Phone Dionicio Joiner MD Primary Care Provider [phone] Faizan Gabriel MD Primary Care Provider [phone] Juliano Glover MD Unavailable Encounter Details Date Type Department Care Team (Late st Contact Info) Description 07/10/2021 Hospital Follow-up Call [facility] Inpatient Medical Oncology [address] [place] [address] Maggie Hernandez RN Social History Tobacco Use Types Packs/Day Years Used Date Smoking Tobacco: Never Smokeless Tobacco: Never Alcohol Use Standard Drinks/Week Comments No 0 (1 standard drink = 0.6 oz pur e alcohol) AUDIT-C Answer Date Recorded Frequency of Alcohol Consumption Never 07/26/2018 Average Number of Drinks Not on file 019 Frequency of Binge Drinking Not on file 11/2018 Comments No Sex and Gender Information Value Date Recorded Sex Assigned at Not on file Legal Sex Female 3:47 AM CDT Gender Identity Not on file Sexual Orientation Not on file COVID-19 Exposure Response Date Recorded In the last 10 days, have yo u been in contact with someone who was confirmed or suspected to have Coronavirus/COVID-19? No / Unsure 07/08/2021 5:37 AM CDT documented as of this encounter Functional Status * RETIRED Are you deaf or do you have serious difficulty hearing Answer Date of Assessment Author Status No 07/08/2021 10:00 AM CDT Acti ve * RETIRED Are you blind or do you have serious difficulty seeing, even when wearing glasses? Answer Date of Assessment Author Status No 07/08/2021 10:00 AM CDT Acti ve * Do you have serious difficulty walking or climbing stairs? Answer Date of Assessment Author Status Yes 07/08/2021 10:00 AM PEGT Loren Royal RN Active * Do you have difficulty dressing or bathing? Answer Date of Assessment Author Status No 07/08/2021 10:00 AM PEGT Loren Royal RN Active * Because of a physical, mental, or emotional condition, do you have difficulty doing errands alone such as visiting a doctor's office or shopping? Answer Date of Assessment Author Status No 07/08/2021 10:00 AM Loren Ha RN Active documented as of this encounter Mental Status * Because of a physical, mental, or emotional condition, do you have serious difficulty concentrating, remembering, or making decisions? Answer Entry Date Author Status No 07/08/2021 10:00 AM Loren Ha RN Active documented in this encounter Plan of Treatment Not on file documented as of this encounter Goals Goal Patient Goal Type Associated Problems Recent Progress Patient-Stated? 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
--- OUTSIDE RECORDS SUMMARY | 2024-05-19 04:08 | XMS_ITS | Encounter Summary ---
Author Organization [facility] Address [facility] [facility]. [place], [place] [id number] [place] [id number] Care Team Providers Care Minister Of Religion Name Role Phone Dionicio Joiner MD Primary Care Provider Faizan Gabriel MD Primary Care Provider [phone] Juliano Glover MD Unavailable Encounter Details Date Type Department Care Team (Latest Contact Info) Description 12/14/2017 Abstract [facility] Medical Group Wong Caruso MD Social History Tobacco Use Types Packs/Day Years Used Date Smoking Tobacco: Never Comments Unknown Sex and Gender Information Value Date Recorded Sex Assigned at Not on file Legal Sex Female 3:47 AM CDT Gender Identity Not on file Sexual Orientation Not on file documented as of this encounter Plan of Treatment Not on file documented as of this encounter Visit Diagnoses Not on filedocumented in this encounter Additional Health Concerns Infection Onset Date Last Indicated Resolved Time COVID-19 Rule Out 07/08/2021 07/08/2021 07/08/2021 6:12 AM CDT 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
--- OUTSIDE RECORDS SUMMARY | 2024-05-19 04:08 | XMS_ITS | Encounter Summary ---
Author Organization [facility] Address [address] [place] [address]. [place], [place] [address] [place] [address] Care Team Providers Care Computing Tutor Name Role Phone Dionicio Joiner MD Primary Care Provider Faizan Gabriel MD Primary Care Provider [phone] Juliano Glover MD Unavailable Encounter Details Date Type Department Care Team (Late st Contact Info) Description 09/25/2018 Abstract [facility] [address] [place] [address] , Generic Conversion, Social History Tobacco Use Types Packs/Day Years Used Date Smoking Tobacco: Never Smokeless Tobacco: Never Alcohol Use Standard Drinks/Week Comments No 0 (1 standard drink = 0.6 oz pur e alcohol) AUDIT-C Answer Date Recorded Frequency of Alcohol Consumption Never 07/26/2018 Average Number of Drinks Not on file 019 Frequency of Binge Drinking Not on file 11/2018 Comments Unknown Sex and Gender Information Value [...] documented as of this encounter Care Teams Computing Tutor Relationship Specialty Start Date End Date Dionicio Joiner MD [address] [place] [phone] PCP - General FAMILY PRACTICE 02/01/18 09/28/23 Faizan Gabriel MD [address] [place] [address] PCP - General FAMILY PRACTICE 09/29/23 Juliano Glover MD [address] [place] [address] Consulting Physician INTERNAL MEDICINE 10/08/23 documented as of this encounter
--- OUTSIDE RECORDS SUMMARY | 2024-05-19 04:08 | XMS_ITS | Encounter Summary ---
Author Organization [facility] Address [facility] [place] [address] [place] [address] Care Team Providers Care Promotions Specialist Name Role Phone Dionicio Joiner MD Primary Care Provider Faizan Gabriel MD Primary Care Provider [phone] Juliano Glover MD Unavailable Encounter Details Date Type Department Care Team (Late st Contact Info) Description 03/30/2018 Abstract [facility] . [address] [address] Jose Carlos Blanco MD [address] [place] [address] Social History Tobacco Use Types Packs/Day Years Used Date Smoking Tobacco: Never Smokeless Tobacco: Never Comments Unknown Sex and Gender [...] documented as of this encounter Care Teams Promotions Specialist Relationship Specialty Start Date End Date Dionicio Joiner MD [address] [place] [phone] PCP - General FAMILY PRACTICE 02/01/18 09/28/23 Faizan Gabriel MD [address] [place] [address] PCP - General FAMILY PRACTICE 09/29/23 Juliano Glover MD [address] [place] [address] Consulting Physician INTERNAL MEDICINE 10/08/23 documented as of this encounter
--- OUTSIDE RECORDS SUMMARY | 2024-05-19 04:08 | XMS_ITS | Clinical Summary ---
Author Organization [facility] Address [facility]ly [facility]. [place], [place] [address] [place] [address] Care Team Providers Care Technical Sales Engineer Name Role Phone Faizan Gabriel MD Primary Care Provider [phone] Juliano Glover MD Unavailable Allergies Active Allergy Reactions Criticality Noted Date Comments Carbidopa W-Levodopa Diarrhea,Vomiting 03/29/20 18 Lisinopril Cough,Unknown 02/21/2014 Medications * This document contains information received from the source organization and may not represent a complete record from that organization. lovastatin 20 MG tablet Take 1 tablet (20 mg total) by mouth daily. Active metFORMIN 1000 MG tablet Take 1 tablet (1,000 mg total) by mouth daily with breakfast. Active metFORMIN 500 MG tablet Take 1 tablet (500 mg total) by mouth daily before supper. Active SITagliptin 100 MG tablet Take 1 tablet (100 mg total) by mouth daily. Active DULoxetine 60 MG capsule Take 1 capsule (60 mg total) by mouth daily. Active traZODone 100 MG tablet Take 1 tablet (100 mg total) by mouth nightly at bedtime. Active ipratropium-alb uterol 20-100 MCG/ACT inhaler Inhale 1 puff into the lungs 2 (two) times daily. Please provide assembled. Active LORazepam (ATIVAN) 1 MG tablet Take 1.5 tablets (1.5 mg total) by mouth every 6 (six) hours as needed for Anxiety. Take 1 Mg tablet in AM and 1/2 tablet at bedtime Active tiotropium (SPIRIVA RESPIMAT) 2.5 MCG/ACT inhaler (SPIRIVA RESPIMAT) Inhale 2 puffs into the lungs daily. Please provide assembled. Active vitamin D3 (CHOLECALCIFERO L) 25 mcg tablet Take 1 tablet (25 mcg total) by mouth daily. Active esomeprazole (NEXIUM) 20 MG capsule Take 1 capsule (20 mg total) by mouth every morning before breakfast. Active polycarbophil (FIBER-LAX) 625 MG tablet Take 1 tablet (625 mg total) by mouth daily. Active aspirin EC (ECOTRIN) 81 MG tablet Take 1 tablet (81 mg total) by mouth daily. 30 tablet 6 10/23/2023 Active hydroCHLOROthia zide (MICROZIDE) 12.5 MG capsule Take 1 capsule (12.5 mg total) by mouth every morning. 30 capsule 6 10/23/2023 Active Active Problems Problem Noted Date Diagnosed Date Carotid artery disease without cerebral infarcti on 10/20/2023 Primary hypertension 10/20/2023 Mixed hyperlipidemia 10/20/2023 Ileus ([facility]) 07/27/2021 Sigmoid volvulus ([facility]) 07/08/2021 Diabetic polyneuropathy asso ciated with type 2 diabetes mellitus ([facility]) 04/22/2018 Essential tremor 03/29/2018 Immunizations Name Administration Dates Next Due Influenza (Generic) 02/02/2018,01/09/2017,2013,01/03/2013 Td 05/19/2001 Family History Medical History Relation Comments Cancer Brother Heart Attack Father Relation Status Comments Brother bladder Father Social History Tobacco Use Types Packs/Day Years Used Date Smoking Tobacco: Never Smokeless Tobacco: Never Tobacco Cessation:Counseling Given: Not Answered Alcohol Use Standard Drinks/Week Comments No 0 [...] on file Sexual Orientation Not on file Last Filed Vital Signs Vital Sign Reading Time Taken Comments Blood Pressure 152/61 10/20/2023 12:13 PM CDT Pulse 98 10/20/2023 12:13 PM CDT Temperature 36.6 ??C (97.9 ??F) 10/22/2022 11:30 AM C DT Respiratory Rate 20 10/20/2023 12:13 PM CDT Oxygen Saturation 97% 10/20/2023 12:13 PM CDT Inhaled Oxygen Concentration - - Weight 79.4 kg (175 lb) 10/20/2023 12:13 PM CDT Height 154.9 cm (5' 1 ) 10/20/2023 12:13 PM CDT Body Mass Index 33.07 10/20/2023 12:13 PM CDT Plan of Treatment Health Maintenance Due Date Last Done Comments Kidney Health Evaluation 1945 Pneumococcal Vaccine: 65+ Years (1 of 2 - PCV) 1952 Diabetes: Retinopathy Eye Exam 1964 Hepatitis C 1964 Zoster Vaccines (1 of 2) 1996 DTaP, Tdap and Td Vaccines (1 - Tdap) 05/20/2001 05/19/2001 Annual Medicare Wellness Visit 10/27/2011 Dexa Scan (General) 10/27/2011 Lipid Panel 05/31/2016 05/31/2015 RSV Immunization or 60+ Years (1 - 1-dose 75+ series) 2021 COVID-19 Vaccine ( - season) 2023 Influenza Adult (#1) 2024 02/02/2018, 01/09/2017, 01/05/2014, Additional history exists Hemoglobin A1C 03/02/2024 08/31/2023 Colorectal Cancer Screening FIT/FOBT (1 Year) Discontinued 07/08/2021 Meningococcal B Vaccine Aged Out No l onger eligible based on patient's age to complete this topic Meningococcal Vaccine Aged Out No anaid marcel eligible based on patient's age to complete this topic RSV Immunizations Under 20 Months Aged Out No longer eligible based on patient's age to complete this topic Goals Goal Patient Goal Type Associated Problems Recent Progress Patient-Stated? Author Family - family caregiver with be involved in care transitions and discharge planning General No Sandra Bowens, department store salesperson Procedure Name Priority Date/Time Associated Diagnosis Comments HEMOGLOBIN, GLYCOSYLATED Routine 08/31/2023 OCCULT BLOOD, FECES STAT 07/08/2021 1 :00 AM CDT LIPID PANEL Routine 05/31/2015 12:00 AM FLY FRAME TENDER from Last 3 Months or Most Recently Relevant to Health Maintenance Results * HEMOGLOBIN, GLYCOSYLATED (08/31/2023) HGB A1C 6.4 % Narrative Resulting Agency Comment [facility] Faizan Gabriel MD LABORATORY Final Result * OCCULT BLOOD, FECES (07/08/2021 1:00 AM CDT) OCCULT BLOOD FECAL NEGATIVE NEGATIVE 07/08/2021 1:19 AM CDT [facility] STOOL SPECIMEN / Unknown 07/08/2021 1:00 AM CDT Shaw Noguera DO BODY FLUIDS AND STOOLS ORDERA BLES Final Result [facility] [address] [place] [address], * LIPID PANEL (05/31/2015 12:00 AM FLY FRAME TENDER) TRIGLYCERIDES 231 0 - 150 mg/dl MEDINFORMATIX TO EPIC CONVERSION CHOLESTEROL 191 0 - 200 mg/dl MEDINFORMATIX TO EPIC CONVERSION HDL 40 40 - 59 mg/dl MEDINFORMATIX TO EPIC CONVERSION LDL CONVERSION 105 0 - 100 mg/dl MEDINFORMATIX TO EPIC CONVERSION 05/31/2015 05/31/2015 us Generic Conversion Md [facility] Final R esult MEDINFORMATIX TO EPIC CONVERSION from Last 3 Months or Most Recently Relevant to Health Maintenance Additional Health Concerns 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 (JJ) 07/28/2021 07/28/2021 [place] [facility] Advance Directives Documents on File Type Date Recorded Patient Rail Car Driver Expl anation DNR (Do Not Resuscitate) Documentation 11/20/2023 4:11 PM 07/13/2023 - DNR Advance Directives and Living Will 09/06/2018 12:00 AM ADVANCED DIRECTIVES Advance Directives and Living Will 09/06/2018 12:00 AM HCPOA Advance Directives and Living Will 10/16/2015 12:00 AM ADVANCED DIRECTIVES Advance Directives and Living Will 10/16/2015 12:00 AM DNR Advance Directives and Living Will 10/16/2015 12:00 AM DNR Advance Directives and Living Will 10/16/2015 12:00 AM HCPOA Advance Directives and Living Will 12/15/2013 12:00 AM ADVANCED DIRECTIVES Advance Directives and Living Will 12/15/2013 12:00 AM ADVANCED DIRECTIVES Advance Directives and Living Will 12/15/2013 12:00 AM DNR Advance Directives and Living Will 12/15/2013 12:00 AM HCPOA Advance Directives and Living Will 08/18/2013 12:00 AM ADVANCED DIRECTIVES Advance Directives and Living Will 08/18/2013 12:00 AM DNR * DNR (Latest Code Status on File) Date Activated Date Inactivated Comments 07/27/2021 2:21 AM 07/28/2021 3:10 PM * Full Code Date Activated Date Inactivated Comments 07/08/2021 10:30 AM 07/09/2021 6:20 PM Care Teams Technical Sales Engineer Relationship Specialty Start Date End Date Faizan Gabriel MD [address] [place] [address] PCP - General FAMILY PRACTICE 09/29/23 Juliano Glover MD [address] [place] [address] Consulting Physician INTERNAL MEDICINE 10/08/23
--- NOTE | 2024-05-19 04:26 | PC.NURSE ---
TRANSPORTED TO CT VIA WHEEL CHAIR
--- NOTE | 2024-05-19 04:34 | PC.NURSE ---
patient returned from imaging via wheelchair by abrasive grader helper.
--- NOTE | 2024-05-19 04:43 | PC.NURSE ---
IV started and patient medicated per order, see MAR. lights dimmed for comfort. call light within reach.
[2024-05-19] MEDS: LACTATED RINGERS 500 ML 999 ML IV CONT (04:44)
--- NOTE | 2024-05-19 04:47 | PC.NURSE ---
WARM BLANKET GIVEN. HEAD OF BED LOWERED. PATIENT CURRENTLY RESTING WITH HER EYES CLOSED. RESP EVEN AND UNLABORED. CALL LIGHT IN REACH. LIGHTS TURNED OFF
--- NOTE | 2024-05-19 05:57 | PC.NURSE ---
PATIENT RESTING QUIETLY ON STRETCHER. SUPERVISOR FIBERGLASS BOAT ASSEMBLY IN PLACE. RESP EVEN AND UNLABORED. CALL LIGHT IN REACH.
--- NOTE | 2024-05-19 07:08 | PC.NURSE ---
REPORT GIVEN TO GATITO MONZON
--- NOTE | 2024-05-19 07:40 | PC.NURSE ---
spoke with Shobha silver rn, care management. pt requesting assistance with long term placement. unable to take care of self and needs in the home. awaiting arrival of staff to speak with pt.
--- NOTE | 2024-05-19 08:29 | PC.NURSE ---
Velia here from case management to speak with pt.
== END 2024-05-19 08:48 | disposition home or self-care (01) ==
PROVIDERS: Internal Medicine Critical Care Medicine; Emergency Provider Emergency Medicine
DX: F41.9 Anxiety disorder, unspecified (principal); F32.A Depression, unspecified; I10 Essential (primary) hypertension; E11.9 Type 2 diabetes mellitus without complications; Z86.73 Personal history of transient ischemic attack (TIA), and cerebral infarction without residual deficits; Z98.84 Bariatric surgery status; Z79.84 Long term (current) use of oral hypoglycemic drugs; Z79.51 Long term (current) use of inhaled steroids; Z20.822 Contact with and (suspected) exposure to COVID-19
CPT/HCPCS: 36415; 71045; 71275; 80053; 83605; 83880; 84484; 85025; 85380; 87637; 93005; 99284; A9270; J7120; Q9967

== ENCOUNTER 2024-06-26 08:09 | Emergency (ER) | payer MEDICARE, OTHER, SELFPAY ==
[2024-06-26 08:09] VITALS: BP 161/72; PULSE 87; RESP 16; TEMP 36.3; O2SAT 100
--- OUTSIDE RECORDS SUMMARY | 2024-06-26 08:12 | XMS_ITS | Encounter Summary ---
Author Organization [facility] Address [address] [place] [address] Care Team Providers Care Commercial Loan Analyst Name Role Phone Dionicio Joiner MD Primary Care Provider Faizan Gabriel MD Primary Care Provider [phone] Juliano Glover MD Unavailable Encounter Details Date Type Department Care Team (Late st Contact Info) Description 07/10/2021 Hospital Follow-up Call [facility] Inpatient Medical Oncology [address] [place] [address] Maggie Hernandez, RN Social History Tobacco Use Types Packs/Day [...] Status Yes 07/08/2021 10:00 AM PEGT Loren Royal, NICOLÁS Active * Do you have difficulty dressing or bathing? Answer Date of Assessment Author Status No 07/08/2021 10:00 AM CDT Loren Royal RN Active * Because of a physical, mental, or emotional condition, do you have difficulty doing errands alone such as visiting a doctor's office or shopping? Answer Date of Assessment Author Status No 07/08/2021 10:00 AM PEGT Loren Royal RN Active documented as of this encounter Mental Status * Because of a physical, mental, or emotional condition, do you have serious difficulty concentrating, remembering, or making decisions? Answer Entry Date Author Status No 07/08/2021 10:00 AM PEGT Loren Royal RN Active documented in this encounter Plan [...] documented as of this encounter Care Teams Commercial Loan Analyst Relationship Specialty Start Date End Date Dionicio Joiner MD [address] [place] [phone] PCP - General FAMILY PRACTICE 02/01/18 09/28/23 Faizan Gabriel MD [address] [place] [address] PCP - General FAMILY PRACTICE 09/29/23 Juliano Glover MD [address] [place] [address] Consulting Physician INTERNAL MEDICINE 10/08/23 documented as of this encounter
--- OUTSIDE RECORDS SUMMARY | 2024-06-26 08:12 | XMS_ITS | Clinical Summary ---
Author Organization [facility] Address [address] [place] [address] Care Team Providers Care Business Intelligence Manager Name Role Phone Faizan Gabriel MD Primary Care Provider [phone] Juliano Glover MD Unavailable Allergies Active Allergy [...] Primary hypertension 10/20/2023 Mixed hyperlipidemia 10/20/2023 Ileus ([facility]) 07/27/2021 Sigmoid volvulus ([facility]) 07/08/2021 Diabetic polyneuropathy asso ciated with type 2 diabetes mellitus ([facility]) 04/22/2018 Essential tremor 03/29/2018 Immunizations Name Administration [...] 98 10/20/2023 12:13 PM CDT Temperature 36.6 C (97.9 F) 10/22/2022 11:30 AM CDT Respiratory Rate 20 10/20/2023 12:13 PM CDT [...] and discharge planning General No Sandra Bowens, sandblaster glass Procedure Name Priority Date/Time Associated Diagnosis Comments HEMOGLOBIN, GLYCOSYLATED Routine 08/31/2023 OCCULT BLOOD, FECES STAT 07/08/2021 1 :00 AM CDT LIPID PANEL Routine 05/31/2015 12:00 AM AUCTIONEER AUTOMOBILE from Last 3 Months or Most Recently Relevant to Health Maintenance Results * HEMOGLOBIN, GLYCOSYLATED (08/31/2023) HGB A1C 6.4 % Narrative Resulting Agency Comment [facility] Faizan Gabriel MD LABORATORY Final Result * OCCULT BLOOD, FECES (07/08/2021 1:00 AM CDT) OCCULT BLOOD FECAL NEGATIVE NEGATIVE 07/08/2021 1:19 AM CDT [facility] STOOL SPECIMEN / Unknown 07/08/2021 1:00 AM CDT Shaw Noguera DO BODY FLUIDS AND STOOLS ORDERA BLES Final Result [facility] [place] [address], * LIPID PANEL (05/31/2015 12:00 AM AUCTIONEER AUTOMOBILE) TRIGLYCERIDES 231 0 - 150 mg/dl MEDINFORMATIX [...] Comment:07/26/21 urine (JJ) 07/28/2021 07/28/2021 Insurance MEDICARE [facility] [place] [address] Advance Directives Documents on File Type Date Recorded Patient Costumed Character Entertainer Expl anation DNR (Do Not Resuscitate) Documentation [...] 10:30 AM 07/09/2021 6:20 PM Care Teams Business Intelligence Manager Relationship Specialty Start Date End Date Faizan Gabriel MD [address] [place] [address] PCP - General FAMILY PRACTICE 09/29/23 Juliano Glover MD [address] [place] [address] Consulting Physician INTERNAL MEDICINE 10/08/23
--- OUTSIDE RECORDS SUMMARY | 2024-06-26 08:12 | XMS_ITS | Encounter Summary ---
Author Organization [facility] Address [facility] [place] [address] Care Team Providers Care Aviation Electrician Name Role Phone Dionicio Joiner MD Primary Care Provider Faizan Gabriel MD Primary Care Provider [phone] Juliano Glover MD Unavailable Encounter Details Date Type Department Care Team (Late st Contact Info) Description 09/25/2018 Abstract [facility] CONVERSION [address] [place] [address] , Generic Conversion, Social History Tobacco Use [...] documented as of this encounter Care Teams Aviation Electrician Relationship Specialty Start Date End Date Dionicio Joiner MD [address] [place] [phone] PCP - General FAMILY PRACTICE 02/01/18 09/28/23 Faizan Gabriel MD [address] [place] [address] PCP - General FAMILY PRACTICE 09/29/23 Juliano Glover MD [address] [place] [address] Consulting Physician INTERNAL MEDICINE 10/08/23 documented as of this encounter
--- OUTSIDE RECORDS SUMMARY | 2024-06-26 08:12 | XMS_ITS | Encounter Summary ---
Author Organization [facility] Address [facility] [place] [address] Care Team Providers Care Local Combination Truck Driver Name Role Phone Dionicio Joiner MD Primary Care Provider Faizan Gabriel MD Primary Care Provider [phone] Juliano Glover MD Unavailable Encounter Details Date Type Department Care Team (Latest Contact Info) Description 12/14/2017 Abstract [facility] Wong Caruso MD Social History [...] documented as of this encounter Care Teams Local Combination Truck Driver Relationship Specialty Start Date End Date Dionicio Joiner MD [address] [place] [phone] PCP - General FAMILY PRACTICE 02/01/18 09/28/23 Faizan Gabriel MD [address] [place], [place] [phone] PCP - General FAMILY PRACTICE 09/29/23 Juliano Glover MD [address] [place] [address] Consulting Physician INTERNAL MEDICINE 10/08/23 documented as of this encounter
--- OUTSIDE RECORDS SUMMARY | 2024-06-26 08:12 | XMS_ITS | Encounter Summary ---
Author Organization [facility] Address [address] [place] [address] Care Team Providers Care Research Rn Spec Name Role Phone Dionicio Joiner MD Primary Care Provider Faizan Gabriel MD Primary Care Provider [phone] Juliano Glover MD Unavailable Encounter Details Date Type Department Care Team (Late st Contact Info) Description 03/30/2018 Abstract [facility] . [address] [address] Jose Carlos Blanco MD [address] [phone] Social History Tobacco Use Types Packs/Day Years [...] documented as of this encounter Care Teams Research Rn Spec Relationship Specialty Start Date End Date Dionicio Joiner MD [address] [place] [address] PCP - General FAMILY PRACTICE 02/01/18 09/28/23 Faizan Gabriel MD [address] [place], [place] [phone] PCP - General FAMILY PRACTICE 09/29/23 Juliano Glover MD [address] [place] [address] Consulting Physician INTERNAL MEDICINE 10/08/23 documented as of this encounter
--- NOTE | 2024-06-26 08:18 | ED.GENADULT ---
HPI - General Adult General Chief complaint: Eye Problems Stated complaint: red eye History of Present Illness HPI narrative: Gladis is a 78F with a PMH of depression, DMII, and degenerative joint disease that presented to the the ED with a redness in her right eye for a week. Today it had drainage so she came in. No vision changes. NO pain with extraocular movements. No foreign body cessation. No trauma. Related Data Home Medications ?Medication ?Instructions ?Recorded ?Confirmed ?Last Taken ?Type metformin 1,000 mg tablet 1,000 mg PO BID 03/15/19 03/28/24 04/16/22 History duloxetine 60 mg capsule,delayed 60 mg PO DAILY 09/28/20 03/28/24 04/16/22 History release lovastatin 20 mg tablet 20 mg PO QHS 09/28/20 03/28/24 04/15/22 History budesonide 0.5 mg/2 mL suspension 0.5 mg inhalation BID 10/01/20 03/28/24 Unknown History for nebulization (Pulmicort) tiotropium bromide 2.5 2 puff inhalation DAILY 10/01/20 03/28/24 Unknown History mcg/actuation mist for inhalation (Spiriva Respimat) esomeprazole magnesium 20 mg 20 mg PO BID 08/27/21 03/28/24 04/16/22 History capsule,delayed release (Nexium) trazodone 100 mg tablet 200 mg PO HS 08/27/21 03/28/24 04/15/22 History prazosin 1 mg capsule 1 mg PO QHS 03/28/24 03/28/24 Unknown History Allergies Allergy/AdvReac Type Severity Reaction Status Date / Time lisinopril AdvReac Cough Verified 03/28/24 10:12 Review of Systems Review of Systems: All systems reviewed & are unremarkable except as noted in HPI and below PMFSH Past Medical History Medical History Asthma Abdominal wall hernia UTI (urinary tract infection) Aftercare following right knee joint replacement surgery Body mass index [BMI] 34.0-34.9, adult (08/03/15) Primary osteoarthritis of right knee Right knee pain Anxiety Obesity, Class I, BMI 30-34.9 (Unknown) History of depression (Unknown) Type 2 diabetes mellitus (Unknown) Complications of gastric bypass surgery Body mass index [BMI] 35.0-35.9, adult (09/27/15) Left knee pain Primary osteoarthritis of both knees Surgical History Surgical History Hx of tonsillectomy History of cholecystectomy History of appendectomy Gastric bypass status for obesity Presence of right artificial knee joint Family History Family History Other Family history of arthritis Family history of malignant neoplasm Hypertension Social History Social History Smoking status: Never smoker Second hand tobacco smoke exposure: Yes (roommate smokes) Alcohol intake: never Substance use: never Substance use type: does not use Gender identity (if verbalized by the patient): Female Spiritual care concerns: No Exam Const: General: cooperative, healthy appearing, comfortable, no acute distress, well developed, alert, awake and Physically active Orientation/consciousness: oriented to person, oriented to place and oriented to time HENMT: Head: normal to inspection, normocephalic and atraumatic Ears: hearing grossly normal bilaterally and external ears normal Face/Nose/Sinus: Normal external nose present Eyes: General: appearance normal, both eyes and all related structures Periorbital: periorbital findings normal Sclera: sclerae normal Pupils: Equal, round and reactive pupils present Other: conjunctival injection on the right. Neck: Neck: normal visual inspection Chest: Chest palpation & inspection: normal inspection of the chest Resp: Effort & Inspection: normal respiratory effort, able to speak in complete sentences and no respiratory distress Cardio: Jugular venous distension: no JVD Skin: General skin exam: normal color and no rashes or lesions noted Neuro: General: oriented to person, oriented to place and oriented to time Cranial nerves: Yes Equal, round and reactive pupils present Extrem: General: normal to inspection Course Course Emergency Course: given eye drops in her right eye Vital Signs Vital signs: Vital Signs Temperature 97.3 F L 06/26/24 08:09 Pulse Rate 87 06/26/24 08:09 Respiratory Rate 16 06/26/24 08:09 Blood Pressure 161/72 H 06/26/24 08:09 Pulse Oximetry 100 06/26/24 08:09 Oxygen Delivery Room Air 06/26/24 08:09 Temperature 97.3 F L 06/26/24 08:09 Pulse Rate 87 06/26/24 08:09 Respiratory Rate 16 06/26/24 08:09 Blood Pressure 161/72 H 06/26/24 08:09 Pulse Oximetry 100 06/26/24 08:09 Oxygen Delivery Room Air 06/26/24 08:09 Medical Decision Making Vital Signs Vital Signs: Vital Signs Temperature 97.3 F L 06/26/24 08:09 Pulse Rate 87 06/26/24 08:09 Respiratory Rate 16 06/26/24 08:09 Blood Pressure 161/72 H 06/26/24 08:09 Pulse Oximetry 100 06/26/24 08:09 Oxygen Delivery Room Air 06/26/24 08:09 Temperature 97.3 F L 06/26/24 08:09 Pulse Rate 87 06/26/24 08:09 Respiratory Rate 16 06/26/24 08:09 Blood Pressure 161/72 H 06/26/24 08:09 Pulse Oximetry 100 06/26/24 08:09 Oxygen Delivery Room Air 06/26/24 08:09 Discharge Plan Discharge Clinical Impression: Conjunctivitis Patient Disposition: Home, Self-Care Condition: Stable Instructions: Conjunctivitis (ED) Patient Language: Upper Sorbian Prescriptions: New polymyxin B sulf-trimethoprim 10,000 unit- 1 mg/mL drops 1 drp RIGHT EYE Q3H 7 Days Qty: 10 0RF Rx Instructions: while awake; do not exceed 6 doses in 24 hours No Action lovastatin 20 mg Tablet 20 mg PO QHS duloxetine 60 mg Capsule,Delayed Release(Dr/Ec) 60 mg PO DAILY alprazolam [Xanax] 0.5 mg tablet 0.5 mg PO BID PRN (Reason: anxiety) Qty: 14 0RF prazosin 1 mg capsule 1 mg PO QHS cephalexin 500 mg capsule 500 mg PO Q8H 7 Days Qty: 21 0RF trazodone 100 mg tablet 200 mg PO HS Qty: 40 0RF metformin 1,000 mg Tablet 1,000 mg PO BID trazodone 100 mg Tablet 200 mg PO HS esomeprazole magnesium [Nexium] 20 mg Capsule,Delayed Release(Dr/Ec) 20 mg PO BID budesonide [Pulmicort] 0.5 mg/2 mL Suspension For Nebulization 0.5 mg INHALATION BID Spiriva Respimat 2.5 mcg/actuation Mist 2 puff INHALATION DAILY Follow-up/Referrals: UNKNOWN,DOCTOR [Non-Staff] -
[2024-06-26] MEDS: NEOMYCIN/POLYMYXIN/DEXAMETH OP SUSP 5 ML BTL 1 DROP LEFT EYE (08:23)
== END 2024-06-26 08:33 | disposition home or self-care (01) ==
LOC: CHSED 08:28
PROVIDERS: Emergency Provider Family Medicine; PCP Family Medicine
DX: H10.9 Unspecified conjunctivitis (principal); E11.9 Type 2 diabetes mellitus without complications
CPT/HCPCS: 99283; A9270